=== PATIENT | female | born 1940 | race Caucasian/White ===

== ENCOUNTER 2023-10-24 10:07 | Inpatient (IN) | payer MEDICARE, OTHER, SELFPAY ==
[2023-10-24] VITALS (13 sets, daily range): BP systolic 84–146; BP diastolic 61–91; BMI 27.0; BMI 27.4
--- NOTE | 2023-10-24 05:42 | EDRN ---
Pt says she is having mid sternal, epigastric upper abd pain that woke her at 0400. Pt felt fine when she went to bed. Pt has 'a little nausea.' No fever/chills/cough, vomiting, urinary symptoms. No hx of similar symptoms. Pt does not remember
what she had to eat last night. Pt has had decreased appetite which is normal.
[2023-10-24 06:03] LABS: % Basophils 0.9 % (0-2); % Eosinophils 2.2 % (0-6); % Immature Granulocytes 0.5 % (0-0.5); % Lymphocytes 18.8 % (20.5-51.1); % Monocytes 7.3 % (1.7-9.3); % Neutrophils 70.3 % (42.2-75.2); Absolute Basophils 0.1 10^3/uL (0-0.2); Absolute Eosinophils 0.2 10^3/uL (0-0.7); Absolute Lymphocytes 1.5 10^3/uL (1.2-3.4); Absolute Monocytes 0.6 10^3/uL (0.1-0.6); Absolute Neutrophils 5.7 10^3/uL (1.4-6.5); Hematocrit 40.2 % (37.0-47.0); Hemoglobin 13.4 g/dL (12.0-16.0); Mean Corp Hgb Conc. 33.3 g/dL (33.0-37.0); Mean Corpuscular Hgb 33.3 pg (27.0-31.0); Mean Corpuscular Volume 99.8 fL (81.0-99.0); Mean Platelet Volume 8.5 fL (7.4-10.4); Nucleated Red Blood Cells % 0 %; Platelet Count 395 10^3/uL (130-400); Red Blood Cell Count 4.03 10^6/uL (4.20-5.40); Red Cell Dist. Width 13.2 % (11.5-14.5); White Blood Cell Count 8.1 10^3/uL (4.8-10.8)
--- NOTE | 2023-10-24 06:19 | ED.GENMED ---
History of Present Illness
General
Chief Complaint: Cardiac Symptoms
Time Seen by Provider: 10/24/23 06:19
History of Present Illness
History of Present Illness:
HPI: The patient presents with epigastric/lower chest discomfort that started around 4 AM today. Over the last few days, the patient has had decreased appetite. This is associated with intermittent nausea. She overall has an unwell feeling.
EXAM:
GENERAL: Well appearing but in mild distress
HEENT: Moist oral mucosa
CARDIOVASCULAR: No murmurs, normal heart rate, regular rhythm, No chest wall tenderness
PULMONARY: No respiratory distress, breath sounds are clear and equal
ABDOMEN: Soft with no peritoneal signs, mild epigastric tenderness
NEUROLOGIC: Excellent strength all extremities, no coordination deficits
PSYCHIATRIC: Appropriate mental status, normal insight and judgement
EXTREMITIES: Nontender, no edema, moves all extremities equally
SKIN: No rash, no lesions
TIME OF INITIAL ENCOUNTER: 6:30 AM
NUMBER AND COMPLEXITY OF PROBLEMS ADDRESSED AT THE ENCOUNTER
� Chronic conditions affecting care: Migraine, asthma, high blood pressure, hyperlipidemia, IBS, duodenal ulcer with NSAID use
� Acute Exacerbation and/or Progression of Chronic Illness: This is an acute problem
� Differential Diagnosis includes: Gastritis, duodenal ulcer, ACS less likely, bowel obstruction
AMOUNT AND/OR COMPLEXITY OF DATA TO BE REVIEWED AND ANALYZED
� I performed an independent evaluation of and my interpretation is:
EKG: Sinus 66, left axis deviation, borderline LVH, nonspecific ST abnormality
CT: I personally reviewed (patient could not tolerate p.o. and did not want to risk IV contrast even with premedication with her prior history of shortness of breath after IV dye)�agree with radiologist interpretation of
perforated proximal duodenal ulcer
X-rays:
Laboratory Studies: CBC normal, mild renal insufficiency with a creatinine of 1.4 and GFR 37
Other:
� Review of other/old records: The patient was admitted with asthma exacerbation with questionable pneumonia in 2014
� Clinical information was obtained by an independent historian: I spoke to the at bedside
� Prescriptions/Medications Considered but not given:
� Further testing considered but not performed:
RISK OF COMPLICATIONS AND/OR MORBIDITY OR MORTALITY OF PATIENT MANAGEMENT
� Social determinants of health affecting care: Lives at home
� Discussion with other providers: I notified Dr. Coleman who evaluated patient in the ED at 10 AM; discussed with Dr. Caceres, hospitalist for admission; notified GI Dr. Sandoval
� Escalation of care including admission/observation vs risk of discharge considered: The patient presents with epigastric discomfort and CT imaging was abnormal. The patient was given PPI/Pepcid and she has had intermittent
nausea. She was given Zofran and then Reglan. Overall she feels somewhat improved on reassessment at 9:45 AM.
Past History
Past History
ED Past Medical History: Asthma, HTN and Other (Migraines)
ED Past Surgical History: Orthopedic and Other (Hernia)
Social History
Tobacco: Non-smoker
Personal:
Living: with family
Phy Exam
Physical Exam
Physical Exam:
See HPI
Course
Orders/Labs/Results
Orders:
Orders
10/24/23 05:38
ECG [Electrocardiogram (*1)] Urgent
Reason for Study: Chest Pain
EKG- Treatment ONCE
10/24/23 05:54
Complete Blood Count/With Diff Urgent
Troponin I Urgent
10/24/23 06:16
Comprehensive Metabolic Panel Urgent
Comment: REDRAW
Lipase Urgent
10/24/23 06:26
0.9% Sodium Chloride 500 ml [Nss] 500 ml IV BOLUS
Famotidine [Pepcid] 20 mg IV NOW STA
Ondansetron Injectable [Zofran] 4 mg IV NOW STA
10/24/23 06:49
CT Abd/pel Without Iv Or Oral Urgent
Comment:
Reason For Exam: upper pain; refuses IV contr; can't ivon po
10/24/23 08:13
Troponin I Urgent
10/24/23 08:47
Diphenhydramine [Benadryl] 25 mg IV NOW STA
Metoclopramide [Reglan] 10 mg IV NOW STA
10/24/23 09:19
Pantoprazole [Protonix IV] 80 mg IV NOW STA
10/24/23 09:49
Admit/Transfer Patient As Directed
Co-Sign Provider:
Level of Care: Inpatient admission
Assign to:: IMU- Intermediate Care
Physician / Group: [facility]
Diagnosis: duodenal perforation
Reason for Hospitalization: duodenal perforation
Expected length of stay greater than two midnights?: Yes
ELOS- Estimated Length of Stay in days: 5
I certify the patient meets the requirements for IP care: Yes
PRN Pain Medication Management As Directed
May give lesser potent ordered pain med per pt: Yes
preference::
Protocol:: Medication orders for pain may be administered in a
manner that supports deferring to patient preference
when the pt is:
- Requesting an ordered lesser potent pain medication.
Least to most potent pain medications are defined
as: acetaminophen < NSAID < tramadol < opioids
(morphine, oxycodone, hydromorphone).
- Requesting a lesser dose of the same medication IF
ORDERED.
- Requesting a less intrusive route of administration
if both routes are prescribed by the provider (PO <
IV).
10/24/23 09:50
Code Status As Directed
Resuscitation Status: Full Code
10/24/23 10:00
Code Status As Directed
Resuscitation Status: Do not resuscitate
Reached after discussion with pt or family/Healthcare POA: Yes
DNR Bracelet Application ONCE
Abnormal Lab Results
10/24/23 10/24/23
05:54 06:16
RBC 4.03 L 10^6/uL
(4.20-5.40)
MCV 99.8 H fL
(81.0-99.0)
MCH 33.3 H pg
(27.0-31.0)
Lymphocytes % 18.8 L %
(20.5-51.1)
BUN 28 H mg/dl
(7-17)
Creatinine 1.4 H mg/dL
(0.6-1.0)
Glucose 128 H mg/dl
(70-99)
10/24/23 05:54
10/24/23 06:16
Vital Signs
Initial and Last Documented VS:
Initial Vital Signs
Temp Pulse Resp BP Pulse Ox
97.8 F 82 26 126/80 100
10/24/23 05:35 10/24/23 05:35 10/24/23 05:35 10/24/23 05:35 10/24/23 05:35
Last Documented Vital Signs
Temp Pulse Resp BP Pulse Ox
97.8 F 60 18 110/68 98
10/24/23 05:35 10/24/23 08:14 10/24/23 08:14 10/24/23 08:14 10/24/23 08:14
*Critical Care Note
Total Time (30-74mins, 75-104mins- exclusive of procedures): Not Applicable
ED Attending Note
-
Portions of this chart may have been created with voice recognition software.� Occasional wrong word or��sound alike� substitutions may have occurred due to the inherent limitations of voice recognition software.
Discharge Plan
Departure
Patient Disposition: Admit
Date of Disposition: 10/24/23
Time of Disposition: 09:27
Presentation/result/management discussed w/ accepting MD/DO: Hospitalist
Discharge Problem:
Perforated duodenal ulcer
Prescriptions:
No Action
diphenhydramine HCl [Banophen] 50 MG capsule
50 mg PO HSPRN PRN (Reason: allergies)
atenolol 25 MG tablet
25 mg PO HSPRN PRN (Reason: sleep)
calcium carbonate [Oyster Shell Calcium 500] 500 MG tablet
500 mg PO DAILY
hydrochlorothiazide 25 MG tablet
25 mg PO DAILY
albuterol sulfate 1 PUFF HFA aerosol inhaler
2 puff inhalation R Q4HPRN PRN (Reason: shortness of breath)
glucosamine-chondroitin 1 CAP capsule
1 cap PO BIDPRN PRN (Reason: supplement)
docosahexaenoic acid-epa 1 CAP capsule
1 cap PO BIDPRN PRN (Reason: supplement)
fenofibrate nanocrystallized 145 MG tablet
145 mg PO DAILY
multivitamin with folic acid [Tab-A-Shaunna] 1 TABLET tablet
1 tab PO DAILY
losartan 50 mg tablet
50 mg PO DAILY
prochlorperazine maleate 10 mg tablet
10 mg PO TIDPRN PRN (Reason: nausea)
omeprazole 40 mg capsule,delayed release(DR/EC)
40 mg PO DAILY
cholecalciferol (vitamin D3) 50 mcg (2,000 unit) Tablet
50 mcg PO DAILY
jrrdcqclri-jnsbvupblgkpv-xtkb 50-300-40 mg capsule
1 cap PO PRN PRN (Reason: migraine)
Patient Comments:
10/24/2023: Pt states may take once to 5 times a day.
budesonide-formoterol 160-4.5 mcg/actuation HFA aerosol inhaler
1 puff INHALATION R BID
Referrals:
Juan M Murphy MD [Family Provider] -
Interventions
Interventions:
*Risk Screen - Suicide Last Done: 10/24/23 05:35
*General Assessment Last Done: 10/24/23 05:45
*Neglect/Abuse Screening Last Done: 10/24/23 05:35
ED- Fall Risk Assessment Last Done: 10/24/23 05:59
*ED COVID-19 Vaccine History Last Done: 10/24/23 05:45
ED- Pulmonary Assessment Last Done: 10/24/23 06:02
ED- Cardiac Assessment Last Done: 10/24/23 06:02
EH-Geovgx-Umvusuoaou Assessment Last Done: 10/24/23 06:02
Discharge Date and Time
Print Language: LATVIAN
[2023-10-24 06:30] LABS: Troponin I < 0.012 ng/ml
[2023-10-24] MEDS: PEPCID 20 MG IV (06:32)
[2023-10-24] MEDS: NSS 500 IV (06:32)
[2023-10-24] MEDS: ZOFRAN 4 MG IV (06:32)
[2023-10-24 06:36] LABS: ALT (SGPT) 11 U/L (0-35); AST (SGOT) 20 U/L (14-36); Albumin 3.9 g/dl (3.5-5.0); Alkaline Phosphatase 72 U/L (38-126); Blood Urea Nitrogen 28 mg/dl (7-17); Calcium 10.1 mg/dl (8.4-10.2); Carbon Dioxide 24 mmol/L (22-30); Chloride 103 mmol/L (98-107); Estimated Creatinine Clearance 28 ml/min; Glucose 128 mg/dl (70-99); Lipase 218 U/L (23-300); Potassium 4.9 mmol/L (3.5-5.1); Sodium 138 mmol/L (135-145); Total Bilirubin 0.9 mg/dl (0.2-1.3); Total Protein 6.3 g/dl (6.3-8.2)
--- NOTE | 2023-10-24 08:14 | PHANOTE ---
Med Rec Note:
Unable to confirm Atenolol and Fenofibrate, pt states she is taking these medications. Cannot find recent fill through Dr De Leon.
[2023-10-24 08:47] LABS: Troponin I < 0.012 ng/ml
[2023-10-24] MEDS: REGLAN 10 MG IV (08:59)
[2023-10-24] MEDS: BENADRYL 25 MG IV (08:59)
--- NOTE | 2023-10-24 09:40 | HPS.HSE ---
Family Physician
-
Family Physician: Juan M Murphy MD
Chief Complaint
-
RLQ pain and nausea
History of Present Illness
83 y/o F with PMHx:
Essential hypertension
GERD
Asthma
Chronic HFpEF
HLD
Migraines
who p/w CC RLQ pain and nausea. Patient reports this started last night and woke her from sleep. She reports that the only thing that improved the pain with sitting still in a lounge chair. She reports she has chronic exertional retrosternal
chest pain that is related to asthma and this is unchanged. Denies any shortness of breath. Denies any vomiting or diarrhea. Denies any fevers. Denies any other acute symptoms.
Medical History
Past Medical History
Past Medical History: Reports Other (as per HPI)
Past Surgical History: Reports Other (N/A)
Social History
Tobacco: Non-smoker
Alcohol: None
Drug: None
Family History
Family History: Not pertinent
Allergies / Home Medications
Allergies reflects when Allergies were last updated in [facility].
Home Medications with original date entered in [facility]
Allergy/Medication List:
Allergies
Allergy/AdvReac Type Severity Reaction Status Date / Time
cephalexin monohydrate Allergy Anaphylaxis Verified 10/24/23 05:36
[From Keflex]
ciprofloxacin [From Cipro] Allergy Nausea / Verified 10/24/23 05:36
Vomiting /
Headache
clindamycin Allergy Anaphylaxis Verified 10/24/23 05:36
codeine Allergy Nausea / Verified 10/24/23 05:36
Vomiting /
Headache
erythromycin base Allergy Anaphylaxis Verified 10/24/23 05:36
[Erythromycin Base]
gentamicin [Gentamicin] Allergy Anaphylaxis Verified 10/24/23 05:36
iodine Allergy Unknown Verified 10/24/23 05:36
levofloxacin [From Levaquin] Allergy Anaphylaxis Verified 10/24/23 05:36
morphine Allergy Shortness Verified 10/24/23 05:36
of Breath
Penicillins Allergy Anaphylaxis Verified 10/24/23 05:36
Tetracyclines Allergy Anaphylaxis Verified 10/24/23 05:36
vancomycin Allergy Anaphylaxis Verified 10/24/23 05:36
mycin Allergy Anaphylaxis Uncoded 10/24/23 05:36
Home Medications
albuterol sulfate 90 mcg/actuation aerosol inhaler 2 puff inhalation R Q4HPRN PRN shortness of breath 06/23/14
atenolol 25 mg tablet 25 mg PO HSPRN PRN sleep 06/23/14
calcium carbonate (Oyster Shell Calcium 500) 500 mg PO DAILY 06/23/14
diphenhydramine HCl 50 mg capsule (Banophen) 50 mg PO HSPRN PRN allergies 06/23/14
docosahexaenoic acid (dha)-epa 120 mg-180 mg capsule 1 cap PO BIDPRN PRN supplement 06/23/14
fenofibrate nanocrystallized 145 mg tablet 145 mg PO DAILY 06/23/14
glucosamine-chondroitin 500 mg-400 mg capsule 1 cap PO BIDPRN PRN supplement 06/23/14
hydrochlorothiazide 25 mg tablet 25 mg PO DAILY 06/23/14
multivitamin with folic acid 400 mcg tablet (Tab-A-Shaunna) 1 tab PO DAILY 06/23/14
budesonide-formoterol HFA 160 mcg-4.5 mcg/actuation aerosol inhaler 1 puff inhalation R BID 10/24/23
lobsoxoezc-jxaorfrokpypb-nudrhjlj 50 mg-300 mg-40 mg capsule 1 cap PO PRN PRN migraine 10/24/23
cholecalciferol (vitamin D3) 50 mcg (2,000 unit) tablet 50 mcg PO DAILY 10/24/23
losartan 50 mg tablet 50 mg PO DAILY 10/24/23
omeprazole 40 mg capsule,delayed release 40 mg PO DAILY 10/24/23
prochlorperazine maleate 10 mg tablet 10 mg PO TIDPRN PRN nausea 10/24/23
Review of Systems
-
History Source: Patient
A 12 point ROS was completed and negative except as noted: Yes
Physical Exam
Vital Signs
Vital Signs
Temp Pulse Resp BP Pulse Ox
97.8 F 60 18 110/68 98
10/24/23 05:35 10/24/23 08:14 10/24/23 08:14 10/24/23 08:14 10/24/23 08:14
Physical Exam
General: Other (.)
Laboratory Results
-
10/24/23 05:54
10/24/23 06:16
Laboratory Results
Total Bilirubin 0.9 mg/dl (0.2-1.3) 10/24/23 06:16
AST 20 U/L (14-36) 10/24/23 06:16
ALT 11 U/L (0-35) 10/24/23 06:16
Alkaline Phosphatase 72 U/L (38-126) 10/24/23 06:16
Troponin I < 0.012 ng/ml 10/24/23 08:13
Lipase 218 U/L (23-300) 10/24/23 06:16
Impression/Plan
-
Gen: NAD, AAOx3.
Eyes: EOMI, PERRLA, no scleral icterus.
Neck: supple.
CV: RRR, +S1/S2, no m/r/g.
Resp: CTAB, no rales, wheezes, or rhonchi.
Abd: +BS, soft, LLQ TTP, ND
Skin: No rashes.
Neuro: CN 2-12 intact, non-focal.
Psych: Normal mood and affect.
CT A/P:
1. ACUTE PERFORATED PROXIMAL DUODENAL ULCER.
2. 5.9 cm loculated collection of fluid and air adjacent to the proximal duodenum.
3. Moderate chronic bilateral renal disease.
4. Small calcified granulomas in the spleen.
5. Previous cholecystectomy, hysterectomy, and left inguinal hernia repair.
6. Mild cardiomegaly.
Acute perforated proximal duodenal ulcer:
-NPO/IVFs
-STAT surgical evaluation (discussed with Dr. Coleman)
-IMU placement
-IV PPI
Other problems:
Essential HTN: Hold atenolol/HCTZ/losartan
GERD: IV PPI
Asthma, not in acute exac
Chronic HFpEF: Hold BB
HLD
Migraines
DNR - confirmed with the pt in the ER
Heparin
IMU
[2023-10-24] MEDS: PROTONIX IV 80 MG IV (09:47)
--- NOTE | 2023-10-24 10:47 | CON.GS ---
Consultation
-
Date/Time Consultation Requested: 10/24/2023 9:30 AM
Date/Time Consultation Performed: 10/24/2023 9:35 AM
Requesting Provider: Emergency department, Dr. Caceres
Performing Provider: Dr. Coleman
Reason for Consultation: Perforated duodenal ulcer
Medical History
-
Chief Complaint: Abdominal pain
History of Present Illness:
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
worsening abdominal pain over the past months to years. The patient denies Fever, Chest Pain, Shortness Of Breath, Nausea, Vomiting, changes in urinary and bowel habits (other than some occasional constipation and loose stools), unintentional
weight loss, jaundice, icterus, acolic stools.
Her surgical history is significant for a hysterectomy via a low Pfannenstiel incision which at the time she was told she had 'gangrenous appendicitis' and had her appendix removed concurrently. She also had a laparoscopic cholecystectomy done at
[facility]. She also states that she has a known duodenal ulcer and that she was told 'this will 1-Day cause you problem' and she thinks they did something to her duodenum but she is unclear as to what and is under the impression that it was done at the
time of her hysterectomy.
Past Medical History
Past Medical History: Other (Reflux, asthma, heart failure, migraines)
Past Surgical History: Other (Open hysterectomy, appendectomy, laparoscopic cholecystectomy, possible duodenal surgery?)
Social History
Tobacco: Non-Smoker
Alcohol: None
Drug: None
Personal:
Living: With Family
Employment: Retired
Family History
Family History: Reviewed & Not Pertinent
Allergies / Home Medications
Allergy/AdvReac Type Severity Reaction Status Date / Time
cephalexin monohydrate Allergy Anaphylaxis Verified 10/24/23 05:36
[From Keflex]
ciprofloxacin [From Cipro] Allergy Nausea / Verified 10/24/23 05:36
Vomiting /
Headache
clindamycin Allergy Anaphylaxis Verified 10/24/23 05:36
codeine Allergy Nausea / Verified 10/24/23 05:36
Vomiting /
Headache
erythromycin base Allergy Anaphylaxis Verified 10/24/23 05:36
[Erythromycin Base]
gentamicin [Gentamicin] Allergy Anaphylaxis Verified 10/24/23 05:36
iodine Allergy Unknown Verified 10/24/23 05:36
levofloxacin [From Levaquin] Allergy Anaphylaxis Verified 10/24/23 05:36
morphine Allergy Shortness Verified 10/24/23 05:36
of Breath
Penicillins Allergy Anaphylaxis Verified 10/24/23 05:36
Tetracyclines Allergy Anaphylaxis Verified 10/24/23 05:36
vancomycin Allergy Anaphylaxis Verified 10/24/23 05:36
mycin Allergy Anaphylaxis Uncoded 10/24/23 05:36
�Medication �Instructions �Recorded �Confirmed �Type
albuterol sulfate 90 mcg/actuation 2 puff inhalation R Q4HPRN PRN 06/23/14 10/24/23 History
aerosol inhaler shortness of breath
atenolol 25 mg tablet 25 mg PO HSPRN PRN sleep 06/23/14 06/23/14 History
calcium carbonate (Oyster Shell 500 mg PO DAILY Supplement 06/23/14 10/24/23 History
Calcium 500)
diphenhydramine HCl 50 mg capsule 50 mg PO HSPRN PRN allergies 06/23/14 10/24/23 History
(Banophen)
docosahexaenoic acid (dha)-epa 120 1 cap PO BIDPRN PRN supplement 06/23/14 10/24/23 History
mg-180 mg capsule
fenofibrate nanocrystallized 145 145 mg PO DAILY High Cholesterol 06/23/14 06/23/14 History
mg tablet
glucosamine-chondroitin 500 mg-400 1 cap PO BIDPRN PRN supplement 06/23/14 10/24/23 History
mg capsule
hydrochlorothiazide 25 mg tablet 25 mg PO DAILY Blood Pressure 06/23/14 10/24/23 History
multivitamin with folic acid 400 1 tab PO DAILY Supplement 06/23/14 10/24/23 History
mcg tablet (Tab-A-Shaunna)
budesonide-formoterol HFA 160 1 puff inhalation R BID 10/24/23 10/24/23 History
mcg-4.5 mcg/actuation aerosol Lung/Breathing Issues
inhaler
jsdrryjqhg-fwlfsgdfcbuzd-bnefwmku 1 cap PO PRN PRN migraine 10/24/23 10/24/23 History
50 mg-300 mg-40 mg capsule
cholecalciferol (vitamin D3) 50 50 mcg PO DAILY Supplement 10/24/23 10/24/23 History
mcg (2,000 unit) tablet
losartan 50 mg tablet 50 mg PO DAILY Blood Pressure 10/24/23 10/24/23 History
omeprazole 40 mg capsule,delayed 40 mg PO DAILY Gastrointestinal 10/24/23 10/24/23 History
release Issue
prochlorperazine maleate 10 mg 10 mg PO TIDPRN PRN nausea 10/24/23 10/24/23 History
tablet
Review of Systems
-
All other systems: Negative unless noted
A 10 point review of systems was completed, and was negative except as per HPI.
Physical Exam
Vital Signs
Temp Pulse Resp BP Pulse Ox
97.8 F 60 18 110/68 98
10/24/23 05:35 10/24/23 08:14 10/24/23 08:14 10/24/23 08:14 10/24/23 08:14
10/23/23 10/24/23 10/25/23
06:59 06:59 06:59
Actual Weight 70.1 kg
Body Mass Index (BMI) 27.0
Lab Results
10/24/23 05:54
10/24/23 06:16
WBC 8.1 10^3/uL (4.8-10.8) 10/24/23 05:54
Hgb 13.4 g/dL (12.0-16.0) 10/24/23 05:54
Hct 40.2 % (37.0-47.0) 10/24/23 05:54
Plt Count 395 10^3/uL (130-400) 10/24/23 05:54
Abs Immat Gran (auto) 0.0 10^3/uL (0-0.05) 10/24/23 05:54
Neutrophils % 70.3 % (42.2-75.2) 10/24/23 05:54
Physical Exam
General: Well Developed
HEENT: Normocephalic
Respiratory: Clear
GI: Soft, Non Distended, Tender (Mild focal tenderness in the left lower quadrant. No tenderness to palpation in the right upper quadrant even with very deep palpation.), Incisions (She has a low Pfannenstiel incision but no midline laparotomy or
upper abdominal scars. She does have some very faint small incisions in the right upper quadrant consistent with prior cholecystectomy.) and Other
Data Reviewed
-
CT Scan: Image Personally Visualized and interpreted, Report Reviewed by me, Discussed with Physician, Discussed with Patient and Discussed with Family
Labs: Labs Reviewed by me, Discussed with Physician and Discussed with Patient
Total Time Spent with Patient (in minutes): 30
Assessment / Plan
-
This is an 83-year-old female who presents with abdominal pain and nausea over the past 2 days in the setting of similar intermittent symptoms over the past months to years. Her surgical history is significant for a cholecystectomy and a
hysterectomy/appendectomy as well as a possible 'duodenal ulcer surgery' but given her surgical scars it is hard to decipher what exactly she had and unfortunately she is not the best historian.
I reviewed her CT scan images personally and while I agree the duodenum appears somewhat abnormal in its course, there is no free air or free fluid and minimal inflammation which would be very unlikely in the setting of a perforation. Furthermore
her physical exam is completely benign particularly in the right upper quadrant, and she has no leukocytosis. I wonder if the radiologic findings are secondary to her reported prior surgery in this area.
Recommend getting an upper GI with Omnipaque to assess her anatomy better. The patient refused initially p.o. contrast with her CT scan because of an 'allergy to dye' though it sound like this was with IV contrast the patient insists this occurred
with oral contrast as well and she would like to be premedicated for this.
N.p.o. until upper GI. IV fluids
IV Protonix for now.
Would hold off on antibiotics for now
Surgery will continue to follow
Patient and agreeable to plan of care above.
I spent roughly 75 minutes in total for the care of this patient today including direct patient care and counseling, reviewing labs, imaging, coordination of care, as well as documentation.
--- NOTE | 2023-10-24 11:22 | CM ---
CM reviewed patient's chart. Spoke with patient at bedside. CM introduced self and role. Her was also at bedside.
PCP: Dr. Juan M Murphy
Pharmacy: [facility]
Living situation: Patient lives with her . She lives in a single-level home. No steps to enter.
Finances: Patient denies any social insecurities. She is able to afford her housing, clothing, medications, food, utilities and transportation. She is a retired oncology nurse.
DME/Ambulation: Patient ambulates independently. She owns a walker and cane.
Transportation: Patient's will provide transportation, once she is discharged. Patient very occasionally drives.
Agreeable to home health care?: Yes, if needed. Her 's brother owns a home health care agency.
ANTICIPATED DISCHARGE DISPOSITION:
Home with , once medically cleared.
CM will continue to follow case and available for further assistance.
[2023-10-24] MEDS: MORPHINE SULFATE 2 MG IV (12:31)
--- NOTE | 2023-10-24 14:32 | EDRN ---
kapil text to dr. Caceres about changing admission request to Tele from IMU. Dr. Caceres will reevaluate the patient before changing the statues. Pt resting comfortably after receiving Morphine, states there is no pain at this time.
--- NOTE | 2023-10-24 16:40 | PTCARENOTE ---
2361 Pt received from ED via stretcher. Pt ambulated from stretcher to standing scale and then to bed. Pt accompanied by spouse and floor care technician.
Pt oriented to staff, call light and environment.
[2023-10-24] MEDS: PROTONIX IV 40 MG IV ×2 (17:20→21:09)
[2023-10-24] MEDS: NSS (PRESERVATIVE FREE) 10 ML IV ×2 (17:20→21:09)
[2023-10-24] MEDS: HEPARIN 5000 UNITS SC ×2 (17:21→23:09)
[2023-10-24] MEDS: LR 1000 IV (17:21)
[2023-10-24] MEDS: FIORICET 1 TAB PO ×2 (17:46→21:08)
[2023-10-24] MEDS: SYMBICORT 160/4.5 MCG INHALER 1 PUFF INH (19:30)
[2023-10-25] MEDS: LR 1000 IV ×3 (02:30→20:36)
[2023-10-25] MEDS: MORPHINE SULFATE 2 MG IV (03:48)
[2023-10-25 07:13] LABS: Blood Urea Nitrogen 26 mg/dl (7-17); Calcium 9.3 mg/dl (8.4-10.2); Carbon Dioxide 25 mmol/L (22-30); Chloride 106 mmol/L (98-107); Estimated Creatinine Clearance 33 ml/min; Glucose 77 mg/dl (70-99); Potassium 4.7 mmol/L (3.5-5.1); Sodium 138 mmol/L (135-145); eGFR 44.64
[2023-10-25 07:17] LABS: Hematocrit 32.5 % (37.0-47.0); Hemoglobin 10.6 g/dL (12.0-16.0); Mean Corp Hgb Conc. 32.6 g/dL (33.0-37.0); Mean Corpuscular Hgb 33.2 pg (27.0-31.0); Mean Corpuscular Volume 101.9 fL (81.0-99.0); Mean Platelet Volume 8.5 fL (7.4-10.4); Platelet Count 266 10^3/uL (130-400); Red Blood Cell Count 3.19 10^6/uL (4.20-5.40); Red Cell Dist. Width 13.2 % (11.5-14.5); White Blood Cell Count 5.6 10^3/uL (4.8-10.8)
[2023-10-25] MEDS: HEPARIN 5000 UNITS SC ×3 (07:27→23:23)
[2023-10-25] MEDS: PROTONIX IV 40 MG IV ×2 (07:27→20:24)
[2023-10-25] MEDS: NSS (PRESERVATIVE FREE) 10 ML IV ×2 (07:27→20:24)
[2023-10-25 07:30] VITALS: BP 147/66
[2023-10-25] MEDS: FIORICET 1 TAB PO ×2 (07:40→20:55)
[2023-10-25] MEDS: SYMBICORT 160/4.5 MCG INHALER 1 PUFF INH ×2 (07:50→19:39)
--- NOTE | 2023-10-25 09:53 | W.PN.HOSP.TC ---
Today's Communication/Plan
-
see bold
Assessment / Plan
Assessment / Plan
Gen: remains NAD, AAOx3.
Eyes: EOMI, PERRLA, no scleral icterus.
Neck: supple.
CV: remains RRR, +S1/S2, no m/r/g.
Resp: CTAB, no rales, wheezes, or rhonchi.
Abd: +BS, soft, RLQ TTP, ND
Skin: No rashes.
Neuro: CN 2-12 intact, non-focal.
Psych: Normal mood and affect.
CT A/P:
1. ACUTE PERFORATED PROXIMAL DUODENAL ULCER.
2. 5.9 cm loculated collection of fluid and air adjacent to the proximal duodenum.
3. Moderate chronic bilateral renal disease.
4. Small calcified granulomas in the spleen.
5. Previous cholecystectomy, hysterectomy, and left inguinal hernia repair.
6. Mild cardiomegaly.
UGI-series:
1. 3 cm in length segment of luminal narrowing and mucosal irregularity in the proximal 2nd portion of the duodenum corresponding to a segment of wall thickening seen on the CT examination performed 10/24/2023. Diagnostic possibilities are (1)
inflammatory wall thickening from peptic ulcer disease or (2) duodenal adenocarcinoma.
2. 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
3. No fluoroscopic evidence for gastric outlet or duodenal obstruction.
4. No fluoroscopic evidence for extravasation of contrast into the peritoneal cavity.
Abdominal pain:
-NPO/IVFs
-surgery following
-It appears that the reading of the CT scan of the abdomen pelvis might be an 'over read.' Currently abdomen is benign and there is no evidence of free air or fluid outside of the esophagus.
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
-cont IV PPI
-c/s GI considering patient may need EGD
Other problems:
Essential HTN: Holding atenolol/HCTZ/losartan
GERD: IV PPI
Asthma, not in acute exac
Chronic HFpEF: Holding BB
HLD
Migraines: Fioricet PRN
DNR - confirmed with the pt in the ER
Heparin
Anticipated Discharge: 24 - 48 hours
Subjective/Interval History
-
Date of Service: October 25, 2023
Abdominal discomfort is improved since yesterday. Patient complains of migraine headaches.
Objective Data
-
Labs:
Laboratory Results
10/25/23
06:20
WBC 5.6
Hgb 10.6 L D
Hct 32.5 L
Plt Count 266 D
Sodium 138
Potassium 4.7
Chloride 106
Carbon Dioxide 25
BUN 26 H
Creatinine 1.2 H
Glucose 77
Calcium 9.3
Vital Signs:
Vital Signs
Temp Pulse Resp BP Pulse Ox
97.9 F 54 16 147/66 97
10/25/23 07:30 10/25/23 07:30 10/25/23 07:30 10/25/23 07:30 10/25/23 07:30
I&O
10/24/23 10/25/23 10/26/23
06:59 06:59 06:59
Intake Total 1500 / 1500
Balance 1500 / 1500
--- NOTE | 2023-10-25 09:54 | W.PN.GS2 ---
Today's Communication / Plan
-
-- No role or indication for surgery at this time
-- GI consult noted, EGD timing TBD
-- Diet per GI
-- Please call with any questions or concerns
Assessment / Plan
-
Patient is a 83 yo F p/w intermittent bloating and nausea over the past few days. Symptoms appear to be acute on chronic dating back years.
CT A/P (10/23): irregular thickening and configuration of the duodenum, without any evidence of pneumatosis or free air, exam limited by lack of oral and IV contrast.
UGI (10/23): large 2 cm duodenal diverticulum with no evidence of leak, 3 cm area of luminal narrowing and mucosal irregularity
Symptoms likely related to large duodenal diverticulum with stricturing related to either ulcerative disease, postsurgical, or a malignant process. No evidence of obstruction or leak. Recommend further workup and management by GI. Will need EGD
for evaluation of area with possible biopsies. No plans or indication for surgery at this time. All questions answered.
-- No role or indication for surgery at this time
-- GI consult noted, EGD timing TBD
-- Diet per GI
-- Please call with any questions or concerns
Subjective Data
-
Date of Service: October 25, 2023
Stable, no changes in symptoms. Reports intermittent bloating and burping on a daily to weekly basis. Current episode began 2-3 days ago. Associated more with larger meals, though history is somewhat unclear. Nausea but no vomiting. No episodes
of hemoptysis. She also reports some lower abdominal pain and discomfort, denies any upper abdominal pain or discomfort. No fevers, chills, night sweats, or weight loss reported.
Objective Data
-
Intake and Output
10/24/23 10/25/23 10/26/23
06:59 06:59 06:59
Intake Total 1500 / 1500
Balance 1500 / 1500
Intake:
Oral fluids 0 / 0
IV fluids (Total) 1500 / 1500
Other:
Number of approximated MODERATE 2
amounts of urine
Vital Signs
Temp Pulse Resp BP Pulse Ox
97.9 F 54 16 147/66 97
10/25/23 07:30 10/25/23 07:30 10/25/23 07:30 10/25/23 07:30 10/25/23 07:30
Lab Results
10/25/23 06:20
10/25/23 06:20
Calcium 9.3 mg/dl (8.4-10.2) 10/25/23 06:20
Total Bilirubin 0.9 mg/dl (0.2-1.3) 10/24/23 06:16
AST 20 U/L (14-36) 10/24/23 06:16
ALT 11 U/L (0-35) 10/24/23 06:16
Alkaline Phosphatase 72 U/L (38-126) 10/24/23 06:16
Total Protein 6.3 g/dl (6.3-8.2) 10/24/23 06:16
Albumin 3.9 g/dl (3.5-5.0) 10/24/23 06:16
Physical Exam
-
Gen: NAD
Abd: soft, NT/ND, non-peritoneal, prior incisions well healed
[2023-10-25] MEDS: TYLENOL 650 MG PO (12:44)
--- NOTE | 2023-10-25 13:46 | CON.GI ---
Addendum entered and electronically signed by Seng Gorman DO 10/25/23 16:31:
I saw and examined the patient.
The MANUFACTURING ENGINEERING DIRECTOR's note was reviewed and I agree with the note with the following comments. This is an 83 y.o female with past medical as outlined below who presented to the ED with acute onset of epigastric abdominal pain. Reports acute on chronic,
intermittent abdominal pain over the past ten years but reports that this current episode was much more intense. No nausea or vomiting, but does not decreased p.o intake along with an unintentional weight loss of 35 lbs. Labs grossly normal on
admission except for BUN 28 and Public Health Educator 1.4. Non-contrast CT concern for an acute perforated ulcer with loculated collection however upon further Radiology review/addendum there was no evidence of extraluminal collection of air or fluid, only some
nonspecific thickening of the proximal duodenal wall. Follow-up UGI as recommended by surgery revealed luminal narrowing and mucosal irregularity in the proximal 2nd portion concerning for PUD (ie deep penetrating ulcer ?) versus duodenal
adenocarcinoma. Denies any NSAIDs or other obvious risk factors for PUD and given weight loss malignancy needs to be rule out. 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
without any biliary ductal dilatation seen on imaging.
#Acute on Chronic, Epigastric Abdominal Pain
#Abnormal CT w/ #Duodenal Nodularity/Wall Thickening
#Unintentional Weight Loss (35 lbs)
#Hx of Cholecystectomy
Recommendations:
- Okay to trial CLD this afternoon, keep NPO at [place]
- Empiric IV PPI 40 mg BiD
- Trend Hgb with serial CBC, transfuse for goal Hgb > 7.0
- Will plan for EGD tomorrow, 10/26/2023, to further evaluate patient's symptoms and abnormal CT findings
- Strict avoidance of all NSAIDs
- Surgery following, appreciate recs
- Rest of care per primary team
Seng Gorman DO
Original Note:
Consultation
-
Date/Time Consultation Requested: 10/25/23 1000
Date/Time Consultation Performed: 10/25/23 1340
Requesting Provider: Que Caceres MD
Performing Provider: NEVILLE Merlos, Juan David Guevara MD
Reason for Consultation: abnormal imaging
Medical History
Chief Complaint / HPI
Chief Complaint: abdominal pain
History of Present Illness:
Pt is an 83yo colon polyps, family hx colon CA, HFpEF, GERD(Omeprazole PRN), asthma, HTN, hyperlipidemia, migraines (Fioricet as needed), ? duodenal ulcer, hernia, presents with onset of epigastric/lower abdominal pain. In reviewing with patient
noted with hx abdominal pain x 10 years. Pain in intermittent with increased intensity then resolved. She is concerned as admits to recent wt loss of about 35 lbs and increase frequency and intensity of pain. She admit to pain is chest and
epigastric that now is improving since admission. On admission she CT non contrast with concern for acute perforated ulcer with loculated collection vs on further review possible post surgical related with thickening of duodenal wall with adjacent
fat stranding. Follow up UGI with luminal narrowing and mucosal irregularity 2nd portion of duodenum with wall thickening seen on CT -- PUD vs duodenal adenocarcinoma. Also noted large duodenal diverticulum without gastric outlet or duodenal
obstruction. No extravasation of contrast into peritoneal cavity.
Pt otherwise admits to nausea without vomiting and occasional constipation. She denies odynophagia, dysphagia, GERD, diarrhea, or rectal bleeding. Last EGD at [facility] 7-8 years ago at [place]. Last colonoscopy 2 years ago with hx polyp at [place]. No
NSAID use but admits to Fioricet use for Migraines and addition to caffeine with drinking coke daily.
Past Medical History
Past Medical History: Asthma, CHF, GERD, HTN, Hypercholesterolemia and Other (Migraines, hernia, ? duodenal ulcer )
Past Surgical History: Appendectomy, Cholecystectomy, Gynecological (hysterectomy), Orthopedic and Other (? abnormality of duodenum)
Social History
Tobacco: Non-Smoker
Alcohol: None
Drug: None
Personal:
Living: With Family
Employment: Retired (prior nurse )
Family History
Family History: Other (mother with colon CA, brother with polyps)
Allergies / Home Medications
Allergy/AdvReac Type Severity Reaction Status Date / Time
cephalexin monohydrate Allergy Anaphylaxis Verified 10/24/23 05:36
[From Keflex]
ciprofloxacin [From Cipro] Allergy Nausea / Verified 10/24/23 05:36
Vomiting /
Headache
clindamycin Allergy Anaphylaxis Verified 10/24/23 05:36
codeine Allergy Nausea / Verified 10/24/23 05:36
Vomiting /
Headache
erythromycin base Allergy Anaphylaxis Verified 10/24/23 05:36
[Erythromycin Base]
gentamicin [Gentamicin] Allergy Anaphylaxis Verified 10/24/23 05:36
iodine Allergy Unknown Verified 10/24/23 05:36
levofloxacin [From Levaquin] Allergy Anaphylaxis Verified 10/24/23 05:36
Penicillins Allergy Anaphylaxis Verified 10/24/23 05:36
Tetracyclines Allergy Anaphylaxis Verified 10/24/23 05:36
vancomycin Allergy Anaphylaxis Verified 10/24/23 05:36
morphine AdvReac Shortness Verified 10/24/23 14:49
of Breath
mycin Allergy Anaphylaxis Uncoded 10/24/23 05:36
�Medication �Instructions �Recorded
albuterol sulfate 90 mcg/actuation 2 puff inhalation R Q4HPRN PRN 06/23/14
aerosol inhaler shortness of breath
calcium carbonate (Oyster Shell 500 mg PO DAILY Supplement 06/23/14
Calcium 500)
diphenhydramine HCl 50 mg capsule 50 mg PO HSPRN PRN allergies 06/23/14
(Banophen)
docosahexaenoic acid (dha)-epa 120 1 cap PO BIDPRN PRN supplement 06/23/14
mg-180 mg capsule
glucosamine-chondroitin 500 mg-400 1 cap PO BIDPRN PRN supplement 06/23/14
mg capsule
hydrochlorothiazide 25 mg tablet 25 mg PO DAILY Blood Pressure 06/23/14
multivitamin with folic acid 400 1 tab PO DAILY Supplement 06/23/14
mcg tablet (Tab-A-Shaunna)
budesonide-formoterol HFA 160 1 puff inhalation R BID 10/24/23
mcg-4.5 mcg/actuation aerosol Lung/Breathing Issues
inhaler
ayednfgxja-enrhovafdapew-kyqgjbxc 1 cap PO PRN PRN migraine 10/24/23
50 mg-300 mg-40 mg capsule
cholecalciferol (vitamin D3) 50 50 mcg PO DAILY Supplement 10/24/23
mcg (2,000 unit) tablet
losartan 50 mg tablet 50 mg PO DAILY Blood Pressure 10/24/23
omeprazole 40 mg capsule,delayed 40 mg PO DAILY Gastrointestinal 10/24/23
release Issue
prochlorperazine maleate 10 mg 10 mg PO TIDPRN PRN nausea 10/24/23
tablet
Review of Systems
-
History Source: Patient
Constitutional: Reports Weight Loss
EENT: Reports No Symptoms
Abdomen/GI: Reports Abdominal Pain, Nausea and Constipated
: Reports No Symptoms
Musculoskeletal: Reports No Symptoms
Skin: Reports No Symptoms
Neurological: Reports Headache and Weakness
Endocrine: Reports No Symptoms
Hematologic/Lymphatic: Reports No Symptoms
Vital Signs
Temp Pulse Resp BP Pulse Ox
97.9 F 54 16 147/66 97
10/25/23 07:30 10/25/23 07:30 10/25/23 07:30 10/25/23 07:30 10/25/23 07:30
Physical Exam
Exam
General: Well Developed, Well Nourished and No Apparent Distress
HEENT: Normocephalic and Anicteric
Respiratory: Clear
Cardiac: Regular Rhythm
GI: Soft, Non Tender and Non Distended
Musculoskeletal: No Clubbing and No Cyanosis
Skin: Warm and Dry
Neuro: Awake, Alert and AO x 3
Psych: Calm
Results
WBC 5.6 10^3/uL (4.8-10.8) 10/25/23 06:20
Hgb 10.6 g/dL (12.0-16.0) L D 10/25/23 06:20
Hct 32.5 % (37.0-47.0) L 10/25/23 06:20
MCV 101.9 fL (81.0-99.0) H 10/25/23 06:20
Plt Count 266 10^3/uL (130-400) D 10/25/23 06:20
Absolute Neuts (auto) 5.7 10^3/uL (1.4-6.5) 10/24/23 05:54
Sodium 138 mmol/L (135-145) 10/25/23 06:20
Potassium 4.7 mmol/L (3.5-5.1) 10/25/23 06:20
Chloride 106 mmol/L (98-107) 10/25/23 06:20
Carbon Dioxide 25 mmol/L (22-30) 10/25/23 06:20
BUN 26 mg/dl (7-17) H 10/25/23 06:20
Creatinine 1.2 mg/dL (0.6-1.0) H 10/25/23 06:20
Calcium 9.3 mg/dl (8.4-10.2) 10/25/23 06:20
Total Bilirubin 0.9 mg/dl (0.2-1.3) 10/24/23 06:16
AST 20 U/L (14-36) 10/24/23 06:16
ALT 11 U/L (0-35) 10/24/23 06:16
Alkaline Phosphatase 72 U/L (38-126) 10/24/23 06:16
Lipase 218 U/L (23-300) 10/24/23 06:16
Diagnostic Image Results:
10/24/23 UGI series
1. 3 cm in length segment of luminal narrowing and mucosal irregularity in the proximal 2nd portion of the duodenum corresponding to a segment of wall thickening seen on the CT examination performed 10/24/2023. Diagnostic possibilities are (1)
inflammatory wall thickening from peptic ulcer disease or (2) duodenal adenocarcinoma.
2. 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
3. No fluoroscopic evidence for gastric outlet or duodenal obstruction.
4. No fluoroscopic evidence for extravasation of contrast into the peritoneal cavity.
10/24/23 CT without IV contrast
1. ACUTE PERFORATED PROXIMAL DUODENAL ULCER.
2. 5.9 cm loculated collection of fluid and air adjacent to the proximal duodenum.
3. Moderate chronic bilateral renal disease.
4. Small calcified granulomas in the spleen.
5. Previous cholecystectomy, hysterectomy, and left inguinal hernia repair.
6. Mild cardiomegaly.
addendum
The patient is reportedly not tender in the right upper quadrant of the abdomen. There is a history of previous duodenal surgery. The abnormal morphology of the proximal duodenum could be postsurgical in etiology. There is no definitive evidence for
extraluminal collection of air or fluid. There is thickening of the proximal duodenal wall with adjacent fat stranding which could be postprocedural scarring.
Prior GI Procedures:
EGD: 2012 [facility] - Mild Schatzki ring.
- The examination was otherwise normal.
- No obvious pathology.
EGD last [facility] 7-8 years ago
Colonoscopy: last [facility] 2-3 years ago with hx polyps
Assessment / Plan
-
Pt is an 83yo colon polyps, family hx colon CA, HFpEF, GERD(Omeprazole PRN), asthma, HTN, hyperlipidemia, migraines (Fioricet as needed), ? duodenal ulcer, hernia, presents with onset of epigastric/lower abdominal pain. In reviewing with patient
noted with hx abdominal pain x 10 years. Pain in intermittent with increased intensity then resolved. She is concerned as admits to recent wt loss of about 35 lbs and increase frequency and intensity of pain. She admit to pain is chest and
epigastric that now is improving since admission. On admission she CT non contrast with concern for acute perforated ulcer with loculated collection vs on further review possible post surgical related with thickening of duodenal wall with adjacent
fat stranding. Follow up UGI with luminal narrowing and mucosal irregularity 2nd portion of duodenum with wall thickening seen on CT -- PUD vs duodenal adenocarcinoma. Also noted large duodenal diverticulum without gastric outlet or duodenal
obstruction. No extravasation of contrast into peritoneal cavity.
-intermittent abdominal pain for 10 years with recent worsening symptoms
-wt loss
-abnormal Ct with concern for duodenal ulcer with collection but follow up UGI mucosal irregularity with wall thickening- PUD vs duodenal adenocarcinoma
-hx GERD
-anemia with drop in hbg after admission
-? hx duodenal ulcer
-elevated creat
other med problems:
-family hx colon CA, personal hx polyps
-HFpEF
-GERD
-asthma
- HTN
-hyperlipidemia
-migraines
-hernia repair
PLAN:
etiology of abdominal pain with abnormal imaging related to PUD, duodenal diverticulum, mass vs other
plan for EGD in AM -- reviewed risk and benefits with patient, agreeable to proceed
ok for clears, NPO in AM
trend hbg
cont PPI
appreciate surgical input
will follow
-
-
Thank you for consultation and allowing me to participate in the patient's care. Please call the corrections specialist GI physician during the after hours with any questions or concerns.
[2023-10-25 15:50] VITALS: BP 155/66
--- NOTE | 2023-10-25 17:34 | CM ---
Spoke with pt in room .
Probable EGD needed.
Offered Vn she declined need at dc,
PLAN Home no needs
[2023-10-25 23:40] VITALS: BP 144/66
[2023-10-26] VITALS (9 sets, daily range): BP systolic 17–181; BP diastolic 56–78
[2023-10-26] MEDS: TYLENOL 650 MG PO ×2 (01:44→20:34)
[2023-10-26 05:48] LABS: Hematocrit 30.1 % (37.0-47.0); Hemoglobin 10.1 g/dL (12.0-16.0); Mean Corp Hgb Conc. 33.6 g/dL (33.0-37.0); Mean Corpuscular Hgb 33.4 pg (27.0-31.0); Mean Corpuscular Volume 99.7 fL (81.0-99.0); Mean Platelet Volume 8.7 fL (7.4-10.4); Platelet Count 269 10^3/uL (130-400); Red Blood Cell Count 3.02 10^6/uL (4.20-5.40); Red Cell Dist. Width 12.9 % (11.5-14.5); White Blood Cell Count 4.4 10^3/uL (4.8-10.8)
[2023-10-26 05:59] LABS: INR 1.03; PT 13.5 Sec (11.4-14.6)
[2023-10-26] MEDS: ZOFRAN 4 MG IV (06:00)
[2023-10-26 06:13] LABS: Blood Urea Nitrogen 17 mg/dl (7-17); Calcium 9.1 mg/dl (8.4-10.2); Carbon Dioxide 26 mmol/L (22-30); Chloride 106 mmol/L (98-107); Estimated Creatinine Clearance 44 ml/min; Glucose 75 mg/dl (70-99); Potassium 4.3 mmol/L (3.5-5.1); Sodium 138 mmol/L (135-145); eGFR > 60.00
[2023-10-26] MEDS: LR 1000 IV (08:04)
[2023-10-26] MEDS: NSS (PRESERVATIVE FREE) 10 ML IV (08:04)
[2023-10-26] MEDS: FIORICET 1 TAB PO ×2 (08:04→23:48)
[2023-10-26] MEDS: HEPARIN 5000 UNITS SC ×3 (08:04→23:02)
[2023-10-26] MEDS: PROTONIX IV 40 MG IV (08:04)
[2023-10-26] MEDS: SYMBICORT 160/4.5 MCG INHALER 1 PUFF INH ×2 (08:19→19:38)
--- NOTE | 2023-10-26 08:49 | W.PN.HOSP.TC ---
Today's Communication/Plan
-
see bold
Assessment / Plan
Assessment / Plan
Gen: Continues to remain NAD, AAOx3.
Eyes: EOMI, PERRLA, no scleral icterus.
Neck: supple.
CV: Continues to remain RRR, +S1/S2, no m/r/g.
Resp: CTAB, no rales, wheezes, or rhonchi.
Abd: Remains +BS, soft, RLQ TTP, ND
Skin: No rashes.
Neuro: CN 2-12 intact, non-focal.
Psych: Normal mood and affect.
CT A/P:
1. ACUTE PERFORATED PROXIMAL DUODENAL ULCER.
2. 5.9 cm loculated collection of fluid and air adjacent to the proximal duodenum.
3. Moderate chronic bilateral renal disease.
4. Small calcified granulomas in the spleen.
5. Previous cholecystectomy, hysterectomy, and left inguinal hernia repair.
6. Mild cardiomegaly.
UGI-series:
1. 3 cm in length segment of luminal narrowing and mucosal irregularity in the proximal 2nd portion of the duodenum corresponding to a segment of wall thickening seen on the CT examination performed 10/24/2023. Diagnostic possibilities are (1)
inflammatory wall thickening from peptic ulcer disease or (2) duodenal adenocarcinoma.
2. 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
3. No fluoroscopic evidence for gastric outlet or duodenal obstruction.
4. No fluoroscopic evidence for extravasation of contrast into the peritoneal cavity.
Abdominal pain:
-NPO/IVFs
-surgery following
-It appears that the reading of the CT scan of the abdomen pelvis might be an 'over read.' Currently abdomen is benign and there is no evidence of free air or fluid outside of the esophagus.
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
-cont IV PPI
-EGD today
Other problems:
Essential HTN: Holding atenolol/HCTZ/losartan
GERD: IV PPI
Asthma, not in acute exac
Chronic HFpEF: Holding BB
HLD
Migraines: Fioricet PRN
DNR - confirmed with the pt in the ER
Heparin
Anticipated Discharge: 24 - 48 hours
Subjective/Interval History
-
Date of Service: October 26, 2023
No new complaints.
Objective Data
-
Labs:
Laboratory Results
10/26/23
05:17
WBC 4.4 L
Hgb 10.1 L
Hct 30.1 L
Plt Count 269
PT 13.5
INR 1.03
Sodium 138
Potassium 4.3
Chloride 106
Carbon Dioxide 26
BUN 17
Creatinine 0.9
Glucose 75
Calcium 9.1
Vital Signs:
Vital Signs
Temp Pulse Resp BP Pulse Ox
97.6 F 62 18 175/72 100
10/26/23 07:15 10/26/23 08:25 10/26/23 08:25 10/26/23 07:57 10/26/23 08:25
I&O
10/25/23 10/26/23 10/27/23
06:59 06:59 06:59
Intake Total 3120 / 3120
Balance 3120 / 3120
--- NOTE | 2023-10-26 15:53 | PTCARENOTE ---
pt c/o right sided abd pain, mid quadrant. Warm blanket applied, abd soft, pt belching occasionally, states that isn't helping w/pain.
--- NOTE | 2023-10-26 18:00 | PTCARENOTE ---
Pt with elevated BP's during shift. made aware, no new orders.
[2023-10-26] MEDS: PROTONIX 40 MG PO (20:17)
[2023-10-27] MEDS: MORPHINE SULFATE 2 MG IV ×2 (01:31→06:36)
[2023-10-27] MEDS: TYLENOL 650 MG PO ×2 (05:45→11:48)
[2023-10-27] MEDS: ZOFRAN 4 MG IV (05:48)
[2023-10-27 06:13] LABS: Hemoglobin 10.3 g/dL (12.0-16.0); Mean Corp Hgb Conc. 33.2 g/dL (33.0-37.0); Mean Corpuscular Hgb 33.2 pg (27.0-31.0); Mean Platelet Volume 8.7 fL (7.4-10.4); Platelet Count 288 10^3/uL (130-400); White Blood Cell Count 4.9 10^3/uL (4.8-10.8)
[2023-10-27 06:30] LABS: Blood Urea Nitrogen 11 mg/dl (7-17); Calcium 9.1 mg/dl (8.4-10.2); Carbon Dioxide 24 mmol/L (22-30); Chloride 106 mmol/L (98-107); Estimated Creatinine Clearance 39 ml/min; Glucose 80 mg/dl (70-99); Potassium 3.9 mmol/L (3.5-5.1); Sodium 140 mmol/L (135-145); eGFR 55.55
[2023-10-27 07:41] VITALS: BP 117/51
[2023-10-27] MEDS: SYMBICORT 160/4.5 MCG INHALER 1 PUFF INH (08:29)
[2023-10-27] MEDS: PROTONIX 40 MG PO (08:55)
[2023-10-27] MEDS: HEPARIN 5000 UNITS SC (08:55)
[2023-10-27] MEDS: FIORICET 1 TAB PO (08:59)
--- NOTE | 2023-10-27 09:47 | W.PN.HOSP.TC ---
Addendum entered and electronically signed by Que Caceres MD 10/27/23 16:00:
Total time spent on d/c = 33 min. This included today's physical exam, progress note, review of laboratory and diagnostic data, preparation of discharge documents and prescriptions, and discussions about the pt's hospital course and discharge plan
with the patient and other medical hospital sales involved in the patient's care.
Original Note:
Today's Communication/Plan
-
Patient can be discharged later today if she tolerates a low residue diet.
Assessment / Plan
Assessment / Plan
Gen: NAD, AAOx3.
Eyes: remains EOMI, PERRLA, no scleral icterus.
Neck: supple.
CV: RRR, +S1/S2, no m/r/g.
Resp: CTAB, no rales, wheezes, or rhonchi.
Abd: +BS, soft, NT to light palpation, ND
Skin: No rashes.
Neuro: remains CN 2-12 intact, non-focal.
Psych: Normal mood and affect.
CT A/P:
1. ACUTE PERFORATED PROXIMAL DUODENAL ULCER.
2. 5.9 cm loculated collection of fluid and air adjacent to the proximal duodenum.
3. Moderate chronic bilateral renal disease.
4. Small calcified granulomas in the spleen.
5. Previous cholecystectomy, hysterectomy, and left inguinal hernia repair.
6. Mild cardiomegaly.
UGI-series:
1. 3 cm in length segment of luminal narrowing and mucosal irregularity in the proximal 2nd portion of the duodenum corresponding to a segment of wall thickening seen on the CT examination performed 10/24/2023. Diagnostic possibilities are (1)
inflammatory wall thickening from peptic ulcer disease or (2) duodenal adenocarcinoma.
2. 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
3. No fluoroscopic evidence for gastric outlet or duodenal obstruction.
4. No fluoroscopic evidence for extravasation of contrast into the peritoneal cavity.
EGD 10/26/23:
- Normal proximal esophagus and mid esophagus.
- Small, superficial esophageal ulcer with no bleeding
and no stigmata of recent bleeding. Biopsied.
- Non-obstructing and mild Schatzki ring at 43 cms.
- Few, scattered non-bleeding gastric ulcers with a
clean ulcer base (Nikita Class III). Biopsied.
- Otherwise, normal stomach on direct and retroflexion
views. Biopsied to rule out H pylori.
- Large, partially obstructing, cratered duodenal
ulcer with a flat pigmented spot (Nikita Class IIc).
The ulcer was deeply penetrating and approximately 3
cms in size. The ulcer was carefully biopsied to r/o
malignancy.
- Few, scattered non-bleeding duodenal ulcers with a
clean ulcer base (Nikita Class III) in the duodenal
bulb.
- Otherwise, normal first portion of the duodenum and
second portion of the duodenum.
- The examination was otherwise normal.
Esophageal, gastric, and duodenal ulcers:
-presented with abdominal pain
-It appears that the reading of the CT scan of the abdomen pelvis might be an 'over read.' Currently abdomen is benign and there is no evidence of free air or fluid outside of the esophagus. Pt was seen by surgery.
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
-The patient was NPO and supported with IVFs
-EGD above, path pending
-Ulcers were likely NSAID induced. Patient admits to taking Aleve when Fioricet does not help her headaches.
-cont PPI BID
-advanced to clears, discussed with GI, advance to LR diet
Other problems:
Essential HTN: Holding atenolol/HCTZ/losartan
GERD: cont PPI
Asthma, not in acute exac
Chronic HFpEF: Holding BB
HLD
Migraines: Fioricet PRN. Note, pt has been overusing fioricet at home.
DNR - confirmed with the pt in the ER
Heparin
Anticipated Discharge: Within 24 hours
Subjective/Interval History
-
Date of Service: October 27, 2023
Complains of headache.
Objective Data
-
Labs:
Laboratory Results
10/27/23
05:40
WBC 4.9
Hgb 10.3 L
Hct 31.0 L
Plt Count 288
Sodium 140
Potassium 3.9
Chloride 106
Carbon Dioxide 24
BUN 11
Creatinine 1.0
Glucose 80
Calcium 9.1
Vital Signs:
Vital Signs
Temp Pulse Resp BP Pulse Ox
98.1 F 63 18 117/51 100
10/27/23 07:41 10/27/23 08:32 10/27/23 08:32 10/27/23 07:41 10/27/23 08:32
I&O
10/26/23 10/27/23 10/28/23
06:59 06:59 06:59
Intake Total 3120 / 3120 840 / 840
Balance 3120 / 3120 840 / 840
--- NOTE | 2023-10-27 10:17 | W.PN.GI.CBS2 ---
Today's Communication / Plan
-
S/p EGD with multiple PUD and large duodenal ulcer without stigmata of bleeding, awaiting pathology results. PPI BiD and advancing diet as tolerated. Rest of care as outlined below.
Assessment / Plan
-
#Acute on Chronic, Epigastric Abdominal Pain 2/2
#PUD w/ #Large Penetrating Duodenal Ulcer (FC IIc) #Gastric, Esophageal Ulcers
#Abnormal CT w/ #Duodenal Nodularity/Wall Thickening
#Unintentional Weight Loss (35 lbs)
#Hx of Cholecystectomy
Pt is an 83yo colon polyps, family hx colon CA, HFpEF, GERD(Omeprazole PRN), asthma, HTN, hyperlipidemia, migraines (Fioricet as needed), ? duodenal ulcer, hernia, presents with onset of epigastric/lower abdominal pain. Reports acute on chronic,
intermittent abdominal pain over the past ten years but reports that this current episode was much more intense. No nausea or vomiting, but does not decreased p.o intake along with an unintentional weight loss of 35 lbs. Labs grossly normal on
admission except for BUN 28 and [employer] 1.4. Non-contrast CT concern for an acute perforated ulcer with loculated collection however upon further Radiology review/addendum there was no evidence of extraluminal collection of air or fluid, only some
nonspecific thickening of the proximal duodenal wall. Follow-up UGI as recommended by surgery revealed luminal narrowing and mucosal irregularity in the proximal 2nd portion concerning for PUD (ie deep penetrating ulcer ?) versus duodenal
adenocarcinoma. Denies any NSAIDs or other obvious risk factors for PUD and given weight loss malignancy needs to be rule out. 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
without any biliary ductal dilatation seen on imaging.
S/p EGD on 10/26/23: - Normal proximal esophagus and mid esophagus.
- Small, superficial esophageal ulcer with no bleeding
and no stigmata of recent bleeding. Biopsied.
- Non-obstructing and mild Schatzki ring at 43 cms.
- Few, scattered non-bleeding gastric ulcers with a
clean ulcer base (Nikita Class III). Biopsied.
- Otherwise, normal stomach on direct and retroflexion
views. Biopsied to rule out H pylori.
- Large, partially obstructing, cratered duodenal
ulcer with a flat pigmented spot (Nikita Class IIc).
The ulcer was deeply penetrating and approximately 3
cms in size. The ulcer was carefully biopsied to r/o
malignancy.
- Few, scattered non-bleeding duodenal ulcers with a
clean ulcer base (Nikita Class III) in the duodenal
bulb.
- Otherwise, normal first portion of the duodenum and
second portion of the duodenum.
- The examination was otherwise normal.
Recommendations:
- Tolerating CLD, may advance diet as tolerated to low-residue diet
- Hgb remains stable, no signs of bloody stools
- Continue PPI 40 mg BiD x 8 weeks and then once daily until repeat EGD
- Await pathology results (sent for [place]) although suspicious for NSAID-induced PUD
- Ultimately, will require a repeat EGD in 8 - 12 weeks as an outpatient. Can also address possibility of performing a colonoscopy at that time as well (reports hx of polyps) and reported unintentional weight loss
- Strict avoidance of all NSAIDs
- Surgery following, appreciate recs
- Rest of care per primary team. Discussed with primary IM team this AM
Subjective
Subjective
Date of Service: October 27, 2023
- S/p EGD on 10/26/23: With multiple ulcers (esophageal, gastric and duodenal) with large, penetrating duodenal ulcer (FC IIc) without any old or fresh blood throughout the GI tract
- Hgb remains stable, no signs of overt GI bleeding
- Otherwise, no acute events overnight
Resting comfortably this AM, however complaining of headache. Denies any abdominal pain, nausea/vomiting or dark/bloody stools. Tolerated CLD without diffculty.
Objective
Data Reviewed
Laboratory Data:
Laboratory Results
09/05/24 05:40
10/27/23 05:40
Laboratory Results
PT 13.5 Sec (11.4-14.6) 10/26/23 05:17
INR 1.03 10/26/23 05:17
Total Bilirubin 0.9 mg/dl (0.2-1.3) 10/24/23 06:16
AST 20 U/L (14-36) 10/24/23 06:16
ALT 11 U/L (0-35) 10/24/23 06:16
Alkaline Phosphatase 72 U/L (38-126) 10/24/23 06:16
Lipase 218 U/L (23-300) 10/24/23 06:16
Vital Signs and I&O:
Vital Signs
Temp Pulse Resp BP Pulse Ox
98.1 F 63 18 117/51 100
10/27/23 07:41 10/27/23 08:32 10/27/23 08:32 10/27/23 07:41 10/27/23 08:32
I&O
10/26/23 10/27/23 10/28/23
06:59 06:59 06:59
Intake Total 3120 / 3120 840 / 840
Balance 3120 / 3120 840 / 840
Physical Exam
Physical Exam
HEENT: Anicteric and Moist mucous membranes
Cardiology: Normal Sinus Rhythm
Pulmonary: Other (Normal WOB on room air)
GI: Soft, Non Distended, Flat and Non Tender
Extremities: Warm
Neuro: Non Focal and Other
[2023-10-27 15:19] VITALS: BP 119/52
--- NOTE | 2023-10-27 16:05 | W.DCSUMMARY ---
Discharge Summary
Discharge Data
Date of Admission: 10/24/23
Date of Discharge: 10/27/23
-
Pending Results: No
Hospital Course
Primary diagnoses:
NSAID induced esophageal, gastric, and duodenal ulcers
Secondary diagnoses:
Essential hypertension
Gastroesophageal flux disease
Asthma
Chronic heart failure with preserved ejection
Hyperlipidemia
Migraine headaches
Consultants:
Gastroenterology
General surgery
Imaging:
CT A/P:
1. ACUTE PERFORATED PROXIMAL DUODENAL ULCER.
2. 5.9 cm loculated collection of fluid and air adjacent to the proximal duodenum.
3. Moderate chronic bilateral renal disease.
4. Small calcified granulomas in the spleen.
5. Previous cholecystectomy, hysterectomy, and left inguinal hernia repair.
6. Mild cardiomegaly.
UGI-series:
1. 3 cm in length segment of luminal narrowing and mucosal irregularity in the proximal 2nd portion of the duodenum corresponding to a segment of wall thickening seen on the CT examination performed 10/24/2023. Diagnostic possibilities are (1)
inflammatory wall thickening from peptic ulcer disease or (2) duodenal adenocarcinoma.
2. 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
3. No fluoroscopic evidence for gastric outlet or duodenal obstruction.
4. No fluoroscopic evidence for extravasation of contrast into the peritoneal cavity.
EGD 10/26/23:
- Normal proximal esophagus and mid esophagus.
- Small, superficial esophageal ulcer with no bleeding
and no stigmata of recent bleeding. Biopsied.
- Non-obstructing and mild Schatzki ring at 43 cms.
- Few, scattered non-bleeding gastric ulcers with a
clean ulcer base (Nikita Class III). Biopsied.
- Otherwise, normal stomach on direct and retroflexion
views. Biopsied to rule out H pylori.
- Large, partially obstructing, cratered duodenal
ulcer with a flat pigmented spot (Nikita Class IIc).
The ulcer was deeply penetrating and approximately 3
cms in size. The ulcer was carefully biopsied to r/o
malignancy.
- Few, scattered non-bleeding duodenal ulcers with a
clean ulcer base (Nikita Class III) in the duodenal
bulb.
- Otherwise, normal first portion of the duodenum and
second portion of the duodenum.
- The examination was otherwise normal.
Hospital course: 83-year-old female presented with chief complaints of right lower quadrant pain and nausea is on H&P done on admission. Patient had a CT scan of the abdomen pelvis as above. There was concern for duodenal perforation. The patient
was evaluated general surgery. Upper GI series was done as above and did not show duodenal perforation. Patient was kept n.p.o. and supported with IV fluids. She had an EGD as above notable for esophageal, gastric, and duodenal ulcers. The
patient admitted to taking 'whenever I can get my hands on' for her migraine headaches. This clearly included NSAIDs. She was advised to stop taking NSAIDs. Patient will be discharged on Protonix twice daily. She will need follow-up with GI for
repeat EGD to ensure healing of her ulcers.
Discharge Plan
-
Patient Disposition: Home (Routine Discharge)
Discharge Diagnosis/Procedures: NSAID induced esophageal, gastric, and duodenal ulcers
Condition: Good
Diet: Low Residue
Activity: No restrictions
Driving Restrictions: As prior to admission
Blood Work: CBC and BMP in 1 week, script from PCP
Referrals:
Oswaldo Sandoval MD [Active] - in two to four weeks
Juan M Murphy MD [Family Provider] - in less than 1 week
Prescriptions:
New
ewlkcupsuz-czgcpljsclwcd-knnk 50-325-40 mg Tablet
1 tab PO DAILY PRN (Reason: migraine headache) Qty: 0 0RF
pantoprazole 40 mg Tablet,Delayed Release (Dr/Ec)
40 mg PO BID Qty: 60 0RF
Continued
diphenhydramine HCl [Banophen] 50 MG capsule
50 mg PO HSPRN PRN (Reason: allergies)
calcium carbonate [Oyster Shell Calcium 500] 500 MG tablet
500 mg PO DAILY
albuterol sulfate 1 PUFF HFA aerosol inhaler
2 puff inhalation R Q4HPRN PRN (Reason: shortness of breath)
glucosamine-chondroitin 1 CAP capsule
1 cap PO BIDPRN PRN (Reason: supplement)
docosahexaenoic acid-epa 1 CAP capsule
1 cap PO BIDPRN PRN (Reason: supplement)
multivitamin with folic acid [Tab-A-Shaunna] 1 TABLET tablet
1 tab PO DAILY
losartan 50 mg tablet
50 mg PO DAILY
prochlorperazine maleate 10 mg tablet
10 mg PO TIDPRN PRN (Reason: nausea)
cholecalciferol (vitamin D3) 50 mcg (2,000 unit) Tablet
50 mcg PO DAILY
budesonide-formoterol 160-4.5 mcg/actuation HFA aerosol inhaler
1 puff INHALATION R BID
Discontinued
hydrochlorothiazide 25 MG tablet
25 mg PO DAILY
omeprazole 40 mg capsule,delayed release(DR/EC)
40 mg PO DAILY
vadprqljat-ygmvhhtovkndz-yuhs 50-300-40 mg capsule
1 cap PO PRN PRN (Reason: migraine)
Patient Comments:
10/24/2023: Pt states may take once to 5 times a day.
Discharge Orders:
Discharge Patient (As Directed); Ordered 10/27/23
Ordered By: Que Caceres
Discharge Date and Time
Print Language: FAROESE
--- NOTE | 2023-10-27 16:11 | CM ---
MD entered order for discharge.
Spoke with and pt Offered VN . Pt declined .
Jose Francisco will drive pt home.
PLAN Home no needs
== END 2023-10-27 17:35 | disposition home or self-care (01) | DRG 381 ==
LOC: 3 WEST ACU 10:07
PROVIDERS: Emergency Medicine; Nurse Practitioner Adult Health; Student in an Organized Health Care Education/Training Program; ADMITTING PHYSICIAN Internal Medicine; CONSULT PHYSICIAN Surgery; EMERGENCY PHYSICIAN Emergency Medicine; FAMILY PHYSICIAN Family Medicine; OTHER PHYSICIAN Specialist
PROC: 0DB58ZZ Excision of Esophagus, Via Natural or Artificial Opening Endoscopic (ICD-10-PCS; 2023-10-26)
PROC: 0DB68ZX Excision of Stomach, Via Natural or Artificial Opening Endoscopic, Diagnostic (ICD-10-PCS; 2023-10-26)
DX: K26.1 Acute duodenal ulcer with perforation (principal); I50.32 Chronic diastolic (congestive) heart failure; K26.5 Chronic or unspecified duodenal ulcer with perforation; I11.0 Hypertensive heart disease with heart failure; Z66 Do not resuscitate; T39.395A Adverse effect of other nonsteroidal anti-inflammatory drugs [NSAID], initial encounter; J45.909 Unspecified asthma, uncomplicated; K22.2 Esophageal obstruction; K25.9 Gastric ulcer, unspecified as acute or chronic, without hemorrhage or perforation
CPT/HCPCS: 88305; 88312; 74176; 74240; 80048; 80053; 83690; 84484; 85025; 85027; 85610; 88342; 93005; 94640; 96361; 96374; 96375; 99285

== ENCOUNTER 2023-11-02 03:39 | Inpatient (IN) | payer MEDICARE, OTHER, SELFPAY ==
[2023-11-01 17:20] VITALS: BP 139/96
[2023-11-01 19:25] VITALS: BMI 28.3
--- NOTE | 2023-11-01 19:35 | ED.GENMED ---
History of Present Illness
<NEVILLE Solano - Last Filed: 11/02/23 15:14>
General
Chief Complaint: Abdominal Pain
Source: patient
Exam Limitations: none
Time Seen by Provider: 11/01/23 18:36
Nursing documentation reviewed up to this point in time: agreed with
History of Present Illness
History of Present Illness:
Patient is an 83-year-old female with Past medical history of hypertension reflux heart failure hyperlipidemia migraine headaches NSAID induced esophageal gastric and duodenal ulcers here in the ER with pain. Patient was just admitted October 23
and discharged October 5 days ago. CAT scan at that time showed concern for duodenal perforation patient was seen by surgery and upper GI series was done and did not show duodenal perforation. Patient was kept n.p.o. and given supportive IV
fluids. Esophageal gastric and duodenal ulcers were noted however on EGD and this was attributed to NSAID use. Patient was discharged on Protonix twice daily.
Patient reports she was doing fine and had a great day yesterday but today when she took her Protonix started vomiting and had abdominal pain. She has had discomfort throughout the day her nausea is getting a little bit better. She was able to
tolerate a little bit of 7-Up. She denies any black or dark stools. Denies any lightheaded weakness.
Past History
<NEVILLE Solano - Last Filed: 11/02/23 15:14>
Past History
ED Past Medical History: Asthma, HTN and Other (Migraines)
ED Past Surgical History: Orthopedic and Other (Hernia)
Social History
Tobacco: Non-smoker
Personal:
Living: with family
Review of Systems
<NEVILLE Solano - Last Filed: 11/02/23 15:14>
Review of Systems
Allergies reviewed?: Yes
Other source history: family
All Other Systems: ROS reviewed and negative except as documented in HPI and ROS
Constitutional: Reports no symptoms; Denies fever, fatigue or chills
Respiratory: Reports no symptoms
Cardiac: Reports no symptoms
ABD/GI: Reports abdominal pain, nausea and vomiting; Denies black stools
: Reports no symptoms
Musculoskeletal: Reports no symptoms
Skin: Reports no symptoms
Neurological: Reports no symptoms
Psychiatric: Reports no symptoms
Phy Exam
<NEVILLE Solano - Last Filed: 11/02/23 15:14>
General Physical Exam
General Presentation: no apparent distress
General age: appears stated age
General Skin: warm and dry
General Habitus: normal
General Mental: alert
General Hydration: appears well hydrated
Gastrointestinal Exam
Gastrointestinal Exam: soft and other (epigastric tenderness )
Neurological Exam
Neurological Exam: alert and oriented x3
Musculoskeletal Exam
Musculoskeletal Exam: full ROM
Skin Exam
Skin Exam: normal color and warm/dry
Psychiatric Exam
Psychiatric Exam: normal mood/affect
Course
<NEVILLE Solano - Last Filed: 11/02/23 15:14>
Orders/Labs/Results
Orders:
Orders
11/01/23 19:33
CMP [Comprehensive Metabolic Panel] Urgent
Complete Blood Count/With Diff Urgent
11/01/23 19:45
Ondansetron Injectable [Zofran] 4 mg IV NOW STA
Pantoprazole [Protonix IV] 40 mg IV NOW STA
11/01/23 19:46
Mag Hydrox/Al Hydrox/Simeth [Maalox] 30 ml Phenobarb/Hyoscy/Atropine/Scop [] 10 ml PO NOW
11/01/23 19:55
Mag Hydrox/Al Hydrox/Simeth [Maalox] 30 ml .ROUTE .STK-MED ONE
Phenobarb/Hyoscy/Atropine/Scop [] 10 ml .ROUTE .STK-MED ONE
11/01/23 20:44
Add On- LAB Urgent
Tests Added?: troponin
11/01/23 20:45
Electrocardiogram (*1) Stat
Reason for Study: Other
Other Reason for Exam: chest pain
EKG- Treatment ONCE
11/01/23 21:26
Troponin I Urgent
11/01/23 21:35
Ondansetron Injectable [Zofran] 4 mg IV NOW STA
11/01/23 22:25
Nitroglycerin Sublingual [Nitrostat (Sublingual)] 0.4 mg SL NOW STA
11/01/23 22:26
Nitroglycerin Sublingual [Nitrostat (Sublingual)] 0.4 mg SL NOW STA
11/01/23 23:14
Ondansetron Injectable [Zofran] 4 mg IV NOW STA
11/01/23 23:15
Metoclopramide [Reglan] 10 mg IV NOW STA
11/01/23 23:17
Iohexol [Omnipaque] See Protocol PO NOW STA
11/01/23 23:39
EKG- Treatment ONCE
11/02/23 00:20
Abdomen Xray - 1 View [CR Abdomen - 1 View] Urgent
Comment:
Reason For Exam: pain recent barium
11/02/23 00:30
Electrocardiogram (*1) Urgent
Reason for Study: Chest Pain
11/02/23 00:55
Troponin I Urgent
11/02/23 01:15
CT Abd/pel (oral only)-[facility] Only Urgent
Comment: pt allergic hives and respiratory distress, DR Matthew oral only
Reason For Exam: upper abd pain
11/02/23 02:44
Admit/Transfer Patient As Directed
Co-Sign Provider:
Level of Care: Inpatient admission
Assign to:: Medical/Surgical
Physician / Group: Tyree
Diagnosis: Duodenal Ulcer
Reason for Hospitalization: Duodenal Ulcer
Expected length of stay greater than two midnights?: Yes
ELOS- Estimated Length of Stay in days: 2
I certify the patient meets the requirements for IP care: Yes
PRN Pain Medication Management As Directed
May give lesser potent ordered pain med per pt: Yes
preference::
Protocol:: Medication orders for pain may be administered in a
manner that supports deferring to patient preference
when the pt is:
- Requesting an ordered lesser potent pain medication.
Least to most potent pain medications are defined
as: acetaminophen < NSAID < tramadol < opioids
(morphine, oxycodone, hydromorphone).
- Requesting a lesser dose of the same medication IF
ORDERED.
- Requesting a less intrusive route of administration
if both routes are prescribed by the provider (PO <
IV).
11/02/23 02:45
Code Status As Directed
Resuscitation Status: Do not resuscitate
Reached after discussion with pt or family/Healthcare POA: Yes
DNR Bracelet Application ONCE
11/02/23 03:06
Acetaminophen [Tylenol] 650 mg PO Q4HPRN PRN
11/02/23 05:37
Albuterol Nebs [Ventolin Nebules] 2.5 mg INH R Q4HPRN PRN
Lactated Ringers [Lr] 1,000 ml IV 85 mls/hr
Ondansetron Injectable [Zofran] 4 mg IV Q6HPRN PRN
11/02/23 05:37
Consult Notification Routine
Specialty to Notify: Gastroenterology
Date consulting provider notified: 11/02/23
Time consulting provider notified: 07:03
Notified:: Provider
Comment: TT Dr Avilez
GASTROINTESTINAL CONSULT Routine
Consulting Provider: Jazmyn Avilez
Was physician already notified: No
Reason for consult: Duodenal Ulcer
Activity As Directed
Activity Level: Ambulate
With Assistance
I/O [Intake/ Output] As Directed
Frequency: Per unit guidelines
Orthostatic Vital Signs As Directed
Orthostatic VS Frequency: BID
Pneumatic Compression Sleeves As Directed
Type: Knee high
Vital Signs As Directed
Frequency: Per unit guidelines
Oxygen Therapy [O2 Therapy] [RESP] Routine
Titrate/Wean O2 to maintain O2 sat greater than (%): 94
DX Deep Vein Thrombosis Video Routine
11/02/23 Breakfast
NPO
Allow oral meds: Yes
Allow clear liquids: Sips of Clears
11/02/23 08:00
Budesonide/Formoterol 160/4.5 [Symbicort 160/4.5 Mcg Inhaler] 1 puff INH R BID
Losartan [Cozaar] 50 mg PO DAILY
Pantoprazole [Protonix IV] 40 mg IV BID
11/02/23 09:58
Basic Metabolic Panel IN AM
Complete Blood Count/No Diff IN AM
Abnormal Lab Results
11/01/23 11/01/23 11/02/23
19:33 21:26 00:55
RBC 4.05 L 10^6/uL
(4.20-5.40)
MCV 100.2 H fL
(81.0-99.0)
MCH 32.8 H pg
(27.0-31.0)
MCHC 32.8 L g/dL
(33.0-37.0)
Absolute Neuts (auto) 8.4 H 10^3/uL
(1.4-6.5)
Absolute Lymphs (auto) 0.8 L 10^3/uL
(1.2-3.4)
Neutrophils % 85.4 H %
(42.2-75.2)
Lymphocytes % 8.2 L %
(20.5-51.1)
BUN 20 H mg/dl
(7-17)
Glucose 113 H mg/dl
(70-99)
Troponin I 0.048 H* ng/ml 0.056 H* ng/ml
11/01/23 19:33
11/01/23 19:33
Vital Signs
Initial and Last Documented VS:
Initial Vital Signs
Temp Pulse Resp BP Pulse Ox
97.7 F 82 16 139/96 97
11/01/23 17:20 11/01/23 17:20 11/01/23 17:20 11/01/23 17:20 11/01/23 17:20
Last Documented Vital Signs
Temp Pulse Resp BP Pulse Ox
98 F 80 18 120/68 93
11/02/23 15:07 11/02/23 15:07 11/02/23 15:07 11/02/23 15:07 11/02/23 15:07
Tool Pusher consulted with Physician
Tool Pusher consulted with physician?: Yes
Name of Physician Consulted: Tiff
<Mushtaq Matthew, DO - Last Filed: 11/01/23 23:03>
Orders/Labs/Results
Orders:
Orders
11/01/23 19:33
CMP [Comprehensive Metabolic Panel] Urgent
Complete Blood Count/With Diff Urgent
11/01/23 19:45
Ondansetron Injectable [Zofran] 4 mg IV NOW STA
Pantoprazole [Protonix IV] 40 mg IV NOW STA
11/01/23 19:46
Mag Hydrox/Al Hydrox/Simeth [Maalox] 30 ml Phenobarb/Hyoscy/Atropine/Scop [] 10 ml PO NOW
11/01/23 19:55
Mag Hydrox/Al Hydrox/Simeth [Maalox] 30 ml .ROUTE .STK-MED ONE
Phenobarb/Hyoscy/Atropine/Scop [] 10 ml .ROUTE .STK-MED ONE
11/01/23 20:44
Add On- LAB Urgent
Tests Added?: troponin
11/01/23 20:45
Electrocardiogram (*1) Stat
Reason for Study: Other
Other Reason for Exam: chest pain
EKG- Treatment ONCE
11/01/23 21:26
Troponin I Urgent
11/01/23 21:35
Ondansetron Injectable [Zofran] 4 mg IV NOW STA
11/01/23 22:25
Nitroglycerin Sublingual [Nitrostat (Sublingual)] 0.4 mg SL NOW STA
11/01/23 22:26
Nitroglycerin Sublingual [Nitrostat (Sublingual)] 0.4 mg SL NOW STA
11/01/23 23:14
Ondansetron Injectable [Zofran] 4 mg IV NOW STA
11/01/23 23:15
Metoclopramide [Reglan] 10 mg IV NOW STA
11/01/23 23:17
Iohexol [Omnipaque] See Protocol PO NOW STA
11/01/23 23:39
EKG- Treatment ONCE
11/02/23 00:20
Abdomen Xray - 1 View [CR Abdomen - 1 View] Urgent
Comment:
Reason For Exam: pain recent barium
11/02/23 00:30
Electrocardiogram (*1) Urgent
Reason for Study: Chest Pain
11/02/23 00:55
Troponin I Urgent
11/02/23 01:15
CT Abd/pel (oral only)-[facility] Only Urgent
Comment: pt allergic hives and respiratory distress, DR Matthew oral only
Reason For Exam: upper abd pain
11/02/23 02:44
Admit/Transfer Patient As Directed
Co-Sign Provider:
Level of Care: Inpatient admission
Assign to:: Medical/Surgical
Physician / Group: Tyree
Diagnosis: Duodenal Ulcer
Reason for Hospitalization: Duodenal Ulcer
Expected length of stay greater than two midnights?: Yes
ELOS- Estimated Length of Stay in days: 2
I certify the patient meets the requirements for IP care: Yes
PRN Pain Medication Management As Directed
May give lesser potent ordered pain med per pt: Yes
preference::
Protocol:: Medication orders for pain may be administered in a
manner that supports deferring to patient preference
when the pt is:
- Requesting an ordered lesser potent pain medication.
Least to most potent pain medications are defined
as: acetaminophen < NSAID < tramadol < opioids
(morphine, oxycodone, hydromorphone).
- Requesting a lesser dose of the same medication IF
ORDERED.
- Requesting a less intrusive route of administration
if both routes are prescribed by the provider (PO <
IV).
11/02/23 02:45
Code Status As Directed
Resuscitation Status: Do not resuscitate
Reached after discussion with pt or family/Healthcare POA: Yes
DNR Bracelet Application ONCE
11/02/23 03:06
Acetaminophen [Tylenol] 650 mg PO Q4HPRN PRN
11/02/23 05:37
Albuterol Nebs [Ventolin Nebules] 2.5 mg INH R Q4HPRN PRN
Lactated Ringers [Lr] 1,000 ml IV 85 mls/hr
Ondansetron Injectable [Zofran] 4 mg IV Q6HPRN PRN
11/02/23 05:37
Consult Notification Routine
Specialty to Notify: Gastroenterology
Date consulting provider notified: 11/02/23
Time consulting provider notified: 07:03
Notified:: Provider
Comment: TT Dr Avilez
GASTROINTESTINAL CONSULT Routine
Consulting Provider: Jazmyn Avilez
Was physician already notified: No
Reason for consult: Duodenal Ulcer
Activity As Directed
Activity Level: Ambulate
With Assistance
I/O [Intake/ Output] As Directed
Frequency: Per unit guidelines
Orthostatic Vital Signs As Directed
Orthostatic VS Frequency: BID
Pneumatic Compression Sleeves As Directed
Type: Knee high
Vital Signs As Directed
Frequency: Per unit guidelines
Oxygen Therapy [O2 Therapy] [RESP] Routine
Titrate/Wean O2 to maintain O2 sat greater than (%): 94
DX Deep Vein Thrombosis Video Routine
11/02/23 Breakfast
NPO
Allow oral meds: Yes
Allow clear liquids: Sips of Clears
11/02/23 08:00
Budesonide/Formoterol 160/4.5 [Symbicort 160/4.5 Mcg Inhaler] 1 puff INH R BID
Losartan [Cozaar] 50 mg PO DAILY
Pantoprazole [Protonix IV] 40 mg IV BID
11/02/23 09:58
Basic Metabolic Panel IN AM
Complete Blood Count/No Diff IN AM
Abnormal Lab Results
11/01/23 11/01/23 11/02/23
19:33 21:26 00:55
RBC 4.05 L 10^6/uL
(4.20-5.40)
MCV 100.2 H fL
(81.0-99.0)
MCH 32.8 H pg
(27.0-31.0)
MCHC 32.8 L g/dL
(33.0-37.0)
Absolute Neuts (auto) 8.4 H 10^3/uL
(1.4-6.5)
Absolute Lymphs (auto) 0.8 L 10^3/uL
(1.2-3.4)
Neutrophils % 85.4 H %
(42.2-75.2)
Lymphocytes % 8.2 L %
(20.5-51.1)
BUN 20 H mg/dl
(7-17)
Glucose 113 H mg/dl
(70-99)
Troponin I 0.048 H* ng/ml 0.056 H* ng/ml
11/01/23 19:33
11/01/23 19:33
Vital Signs
Initial and Last Documented VS:
Initial Vital Signs
Temp Pulse Resp BP Pulse Ox
97.7 F 82 16 139/96 97
11/01/23 17:20 11/01/23 17:20 11/01/23 17:20 11/01/23 17:20 11/01/23 17:20
Last Documented Vital Signs
Temp Pulse Resp BP Pulse Ox
98 F 80 18 120/68 93
11/02/23 15:07 11/02/23 15:07 11/02/23 15:07 11/02/23 15:07 11/02/23 15:07
<NEVILLE Solano - Last Filed: 11/02/23 15:14>
MDM/Problems Addressed
Differential Diagnosis Includes:
Not limited to duodenal ulcer. GERD less likely cardiac
MDM/Problems Addressed:
Patient is a 83-year-old female who present to the ER complaining of epigastric pain. Patient was recently discharged with diagnosis of NSAID induced esophageal gastric and duodenal ulcers. Patient was sent home on Protonix was doing well until
today. While taking her Protonix she had pain and vomiting. Patient was initially given Protonix here along with Zofran. Patient was then given GI cocktail and complained of worsening pain. She pointed to her epigastric area/chest area. She had
an EKG which was unremarkable troponin was ordered. Troponin however came back elevated. On reassessment patient reports when she does feel pain in her chest she also feels in her neck. will order a NTG .
Case discussed with ED physician.
Prior imaging reviewed .
Pain is likely from ulcers with patient's age and severity of pain we will repeat CAT scan. Patient has listed iodine allergy but reports iodine causes vomiting will give dose of Zofran and order p.o. and IV contrast. Will plan to repeat troponin
patient however will require admission for continued pain.
In regards to other labs hemoglobin is stable at 13.3 white count is normal at 9.8 and chemistries unremarkable.
Chronic conditions affecting care:
previous nsaid use ;recent dx of ulcer disease
<NEVILLE Solano - Last Filed: 11/02/23 15:14>
*Pulse Oximetry
Patient hypoxic: no
*Critical Care Note
Total Time (30-74mins, 75-104mins- exclusive of procedures): Not Applicable
ED Attending Note
<NEVILLE Solano - Last Filed: 11/02/23 15:14>
-
Portions of this chart may have been created with voice recognition software.� Occasional wrong word or��sound alike� substitutions may have occurred due to the inherent limitations of voice recognition software.
<Mushtaq Matthew DO - Last Filed: 11/01/23 23:03>
ED Attending Note
Patient seen and examined by attending physician: Yes
I performed a history and physical exam of patient and discussed management with resident, I reviewed resident's note and agree with documented findings and plan of care.: Yes
ED Attending Note:
I agree with Sulma's note
Patient complaining of abdominal pain. Pain is located in the right upper abdomen. Patient was given a dose of a GI cocktail here in the emergency room which seem to make her pain worse. That pain is located in the epigastrium. No shortness of
breath. Reviewed imaging studies and notes from patient's recent hospitalization. Her duodenal ulcer was described as partially obstructing on the endoscopy note. Her upper GI showed that contrast material was passing through.
General: Awake, Alert, Oriented X3. No acute distress.
Vitals: unremarkable
Head: Atraumatic
Eyes: Pupils equal, EOMI
Throat: Airway intact, no exudates
Neck: Trachea midline
Lungs: Clear and equal b/l
Heart: Regular rate, no murmurs
Abd: Soft, some tenderness palpation epigastrium and right upper abdomen, no rebound, No pulsatile mass
Neuro: Nonfocal
Skin: Warm, dry, no rash
Extremities: pulses equal b/l, no edema
Patient has some tenderness but certainly does not have a surgical abdomen. There is no evidence of gastric outlet obstruction or duodenal obstruction at the time of the patient's upper GI 8 days ago. Endoscopy report describes the ulcer is
partially obstructing however. Perhaps the patient's pain is increased due to developing obstruction. Doubt that she is perforated as she does not have peritoneal signs. The patient does have a mildly elevated troponin. I feel this is likely
non-TX elevation. This should be trended however. However given her age and recent pathology I think it is appropriate to repeat imaging to exclude obstruction or perforation.
Discharge Plan
Departure
Patient Disposition: Admit
Date of Disposition: 11/02/23
Time of Disposition: 00:39
Admit to: Telemetry
Admit to doctor: tyree
Presentation/result/management discussed w/ accepting MD/DO: Hospitalist
Patient with high blood pressure during this ER visit?: Yes
Condition: Fair
Covid-19: Not Applicable
Discharge Problem:
Abdominal pain, Elevated troponin
Interventions
Interventions:
*Risk Screen - Suicide Last Done: 11/01/23 19:55
*General Assessment Last Done: 11/01/23 19:55
*Neglect/Abuse Screening Last Done: 11/01/23 19:55
ED- Fall Risk Assessment Last Done: 11/01/23 20:00
*ED COVID-19 Vaccine History Last Done: 11/01/23 20:00
*Nursing Disposition Last Done: 11/02/23 05:42
LE-Xqtjgc-Bncvkxpbku Assessment Last Done: 11/01/23 20:00
Discharge Date and Time
Discharge Date/Time: 11/02/23 05:43
[2023-11-01 19:41] LABS: % Basophils 0.5 % (0-2); % Eosinophils 1.1 % (0-6); % Immature Granulocytes 0.2 % (0-0.5); % Lymphocytes 8.2 % (20.5-51.1); % Monocytes 4.6 % (1.7-9.3); % Neutrophils 85.4 % (42.2-75.2); Absolute Basophils 0.1 10^3/uL (0-0.2); Absolute Eosinophils 0.1 10^3/uL (0-0.7); Absolute Lymphocytes 0.8 10^3/uL (1.2-3.4); Absolute Monocytes 0.5 10^3/uL (0.1-0.6); Absolute Neutrophils 8.4 10^3/uL (1.4-6.5); Hematocrit 40.6 % (37.0-47.0); Hemoglobin 13.3 g/dL (12.0-16.0); Mean Corp Hgb Conc. 32.8 g/dL (33.0-37.0); Mean Corpuscular Hgb 32.8 pg (27.0-31.0); Mean Corpuscular Volume 100.2 fL (81.0-99.0); Mean Platelet Volume 8.7 fL (7.4-10.4); Nucleated Red Blood Cells % 0 %; Platelet Count 277 10^3/uL (130-400); Red Blood Cell Count 4.05 10^6/uL (4.20-5.40); Red Cell Dist. Width 13.3 % (11.5-14.5); White Blood Cell Count 9.8 10^3/uL (4.8-10.8)
[2023-11-01 19:56] LABS: ALT (SGPT) 13 U/L (0-35); AST (SGOT) 24 U/L (14-36); Albumin 3.9 g/dl (3.5-5.0); Alkaline Phosphatase 79 U/L (38-126); Blood Urea Nitrogen 20 mg/dl (7-17); Calcium 9.5 mg/dl (8.4-10.2); Carbon Dioxide 24 mmol/L (22-30); Chloride 103 mmol/L (98-107); Estimated Creatinine Clearance 45 ml/min; Glucose 113 mg/dl (70-99); Potassium 3.6 mmol/L (3.5-5.1); Sodium 140 mmol/L (135-145); Total Bilirubin 0.5 mg/dl (0.2-1.3); Total Protein 6.4 g/dl (6.3-8.2); eGFR > 60.00
[2023-11-01] MEDS: PROTONIX IV 40 MG IV (19:57)
[2023-11-01] MEDS: ZOFRAN 4 MG IV ×2 (19:57→21:40)
[2023-11-01] MEDS: MAALOX 40 PO (20:32)
[2023-11-01 20:34] VITALS: BP 166/81
[2023-11-01 22:03] LABS: Troponin I 0.048 ng/ml
[2023-11-01] MEDS: NITROSTAT (SUBLINGUAL) 0.4 MG SL (22:31)
[2023-11-01 22:35] VITALS: BP 113/66
[2023-11-01 23:00] VITALS: BP 121/65
[2023-11-01] MEDS: REGLAN 10 MG IV (23:24)
[2023-11-01] MEDS: OMNIPAQUE 50 ML PO (23:24)
[2023-11-02 01:42] LABS: Troponin I 0.056 ng/ml
--- NOTE | 2023-11-02 02:48 | HPS.HSE ---
Family Physician
-
Family Physician: Juan M Murphy MD
Chief Complaint
-
Abd Pain, N/V
History of Present Illness
Patient is an 83y F with PMH significant for hypertension, migraines and recent hospitalization for duodenal ulcer who presents to ED complaining of abdominal pain and N/V. Patient was previously admitted 10/23 - 10/26 for similar symptoms. She
underwent EGD on 10/25 which showed large duodenal ulcer and biopsies were taken at that time (which were unremarkable). Patient was placed on BID PPI and discharged to home. She states that she had chan feeling well since that time. This AM, she
took her morning pills and became nauseated. She had an episode of emesis and this was followed by development of severe RUQ and epigastric pain. Her symptoms persisted throughout the day and she presented to the ED for further evaluation and
treatment.
At the time of my examination, patient is resting comfortably and notes that her pain and nausea have improved.
Medical History
Past Medical History
Past Medical History: Reports Other
Additional Past Medical History:
Essential hypertension
GERD
Duodenal Ulcer
Asthma
Chronic HFpEF
HLD
Migraines
Past Surgical History: Reports Other
Additional Past Surgical History:
Appendectomy
Cholecystectomy
ABIMAEL
Hernia Repair
Social History
Tobacco: Non-smoker
Alcohol: None
Drug: None
Family History
Family History: Not pertinent
Allergies / Home Medications
Allergies reflects when Allergies were last updated in [facility].
Home Medications with original date entered in [facility]
Allergy/Medication List:
Allergies
Allergy/AdvReac Type Severity Reaction Status Date / Time
cephalexin monohydrate Allergy Anaphylaxis Verified 11/01/23 19:32
[From Keflex]
ciprofloxacin [From Cipro] Allergy Nausea / Verified 11/01/23 19:32
Vomiting /
Headache
clindamycin Allergy Anaphylaxis Verified 11/01/23 19:32
codeine Allergy Nausea / Verified 11/01/23 19:32
Vomiting /
Headache
erythromycin base Allergy Anaphylaxis Verified 11/01/23 19:32
[Erythromycin Base]
gentamicin [Gentamicin] Allergy Anaphylaxis Verified 11/01/23 19:32
iodine Allergy Vomiting Verified 11/01/23 23:13
levofloxacin [From Levaquin] Allergy Anaphylaxis Verified 11/01/23 19:32
Penicillins Allergy Anaphylaxis Verified 11/01/23 19:32
Tetracyclines Allergy Anaphylaxis Verified 11/01/23 19:32
vancomycin Allergy Anaphylaxis Verified 11/01/23 19:32
morphine AdvReac Shortness Verified 11/01/23 19:32
of Breath
mycin Allergy Anaphylaxis Uncoded 11/01/23 19:32
Home Medications
albuterol sulfate 90 mcg/actuation aerosol inhaler 2 puff inhalation R Q4HPRN PRN shortness of breath 06/23/14
calcium carbonate (Oyster Shell Calcium 500) 500 mg PO DAILY Supplement 06/23/14
diphenhydramine HCl 50 mg capsule (Banophen) 50 mg PO HSPRN PRN allergies 06/23/14
docosahexaenoic acid (dha)-epa 120 mg-180 mg capsule 1 cap PO BIDPRN PRN supplement 06/23/14
glucosamine-chondroitin 500 mg-400 mg capsule 1 cap PO BIDPRN PRN supplement 06/23/14
multivitamin with folic acid 400 mcg tablet (Tab-A-Shaunna) 1 tab PO DAILY Supplement 06/23/14
budesonide-formoterol HFA 160 mcg-4.5 mcg/actuation aerosol inhaler 1 puff inhalation R BID Lung/Breathing Issues 10/24/23
cholecalciferol (vitamin D3) 50 mcg (2,000 unit) tablet 50 mcg PO DAILY Supplement 10/24/23
losartan 50 mg tablet 50 mg PO DAILY Blood Pressure 10/24/23
prochlorperazine maleate 10 mg tablet 10 mg PO TIDPRN PRN nausea 10/24/23
pantoprazole 40 mg tablet,delayed release 40 mg PO BID #60 tabs 10/27/23
vfyawqxdwg-nrldsvovgwkrg-ynzsnwsf 50 mg-325 mg-40 mg tablet 1 tab PO DAILYPRN PRN migraine headache 11/01/23
Review of Systems
-
History Source: Patient
A 12 point ROS was completed and negative except as noted: Yes
Constitutional: Denies Fever or Chills
Respiratory: Denies Cough or Trouble Breathing
Cardiac: Denies Chest Pain or Palpitations
Abdomen/GI: Reports Abdominal Pain, Nausea and Vomiting; Denies Diarrhea, Constipated, Bloody Stools or Black Stools
: Denies Dysuria, Frequency or Flank Pain
Musculoskeletal: Denies Joint Pain or Edema
Neurological: Denies Dizzy or Headache
Psych: Denies Depression or Anxiety
Physical Exam
Vital Signs
Vital Signs
Temp Pulse Resp BP Pulse Ox
97.7 F 84 16 121/65 99
11/01/23 17:20 11/01/23 23:30 11/01/23 23:30 11/01/23 23:00 11/01/23 23:00
Physical Exam
General: Other (83y F in no acute distress at present.)
HEENT: PERRLA and Other (Dry MM.)
Respiratory: Clear; No Wheezes, Rales or Rhonchi
Cardiac: S1/S2 and Regular Rhythm; No Murmur
GI: Soft, Non Distended, Normal Bowel Sounds and Other (Mildly tender in RUQ and epigastric areas. No rebound / guarding.)
Musculoskeletal: No Clubbing, No Cyanosis and No Edema
Neuro: AO x 3
Laboratory Results
-
11/01/23 19:33
11/01/23 19:33
Laboratory Results
Total Bilirubin 0.5 mg/dl (0.2-1.3) 11/01/23 19:33
AST 24 U/L (14-36) 11/01/23 19:33
ALT 13 U/L (0-35) 11/01/23 19:33
Alkaline Phosphatase 79 U/L (38-126) 11/01/23 19:33
Troponin I 0.056 ng/ml H* 11/02/23 00:55
Impression/Plan
-
A/P: Patient is an 83y F with PMH significant for hypertension, migraine headaches and recent admission for duodenal ulcer who presents to ED complaining of recurrent abdominal pain with N/V.
Duodenal Ulcer
Abdominal Pain, N/V
- Admit for further evaluation and treatment.
- Continue supportive care with NPO, IVFs, pain control, antiemetics.
- Continue IV PPI BID.
- GI re-evaluation.
- Follow for any new / recurrent symptoms.
- CT scan repeated in the ED this evening and shows no evidence of acute perforation, free air, etc associated with duodenal ulceration.
Benign Hypertension
- Continue losartan with holding parameters.
Asthma without Acute Exacerbation
- Stable. Continue inhaled medications.
Chronic HFpEF
- Stable. No evidence of volume overload on exam
- Patient is not maintained on chronic diuretic regimen.
- Follow I/Os, daily weights, etc.
Migraine Headaches
- Stable. Supportive care if needed
- No NSAIDs given GI ulcerations.
DVT Prophylaxis: SCDs
Code Status: DNR
[2023-11-02 03:05] VITALS: BP 122/66
[2023-11-02] MEDS: TYLENOL 650 MG PO ×4 (03:13→19:42)
[2023-11-02 05:35] VITALS: BMI 27.8
[2023-11-02 05:40] VITALS: BP 135/67
--- NOTE | 2023-11-02 06:09 | PTCARENOTE ---
Pt received from ED at 0540. Pt pleasant, AAOX3, VSS, and able to walk to bed. Pt complains of 7/10 MARY, [employer] contacted and medication ordered by [employer]. Pt bed in lowest position and call mathew within reach. Educated pt on importance of call mathew use. Pt
expresses understanding. Will continue with current plan of care.
[2023-11-02] MEDS: LR 1000 IV ×2 (06:32→21:16)
[2023-11-02] MEDS: COMPAZINE 5 MG IV ×2 (06:33→22:15)
[2023-11-02 07:00] VITALS: BP 117/49; BP 117/79; BP 131/72; BP 135/69; PULSE 64; PULSE 78; PULSE 95
[2023-11-02] MEDS: SYMBICORT 160/4.5 MCG INHALER 1 PUFF INH ×2 (08:06→19:35)
[2023-11-02] MEDS: COZAAR 50 MG PO (08:39)
[2023-11-02] MEDS: NSS (PRESERVATIVE FREE) 10 ML IV ×2 (08:40→19:37)
[2023-11-02] MEDS: PROTONIX IV 40 MG IV ×2 (08:40→19:37)
--- NOTE | 2023-11-02 09:00 | W.PN.HOSP.TC ---
Today's Communication/Plan
-
Upper GI series. PPI.
Assessment / Plan
Assessment / Plan
Physical exam:
General: Acutely ill.
HEENT: Normocephalic, Atraumatic and Moist Mucous Membranes
Respiratory: Clear to Auscultation; Negative Wheezes, Rales or Rhonchi
Cardiac: Regular Rhythm and S1/S2
GI: Soft, tender and Nondistended
Musculoskeletal: No Clubbing, No Cyanosis and No Edema
Neuro: Awake, Alert and Oriented
Psych: Calm
A/P:
Duodenal Ulcer
Abdominal Pain, N/V
- Admitted for further evaluation and treatment.
- Continue supportive care with NPO, IVFs, pain control, antiemetics.
- Continue IV PPI BID. Continue IV fluids (decrease rate) and n.p.o. until cleared by GI.
- GI re-evaluation--> plan for upper GI series. GI was recommended surgery consulted initially but I had GI and surgery discussed to themselves and ultimately decided no surgery consult for now.
- Follow for any new / recurrent symptoms.
- CT scan repeated in the ED this evening and shows no evidence of acute perforation, free air, etc associated with duodenal ulceration.
-Discussed with at bedside
Benign Hypertension
- Continue losartan with holding parameters.
Asthma without Acute Exacerbation
- Stable. Continue inhaled medications.
Chronic HFpEF
- Stable. No evidence of volume overload on exam
- Patient is not maintained on chronic diuretic regimen.
- Follow I/Os, daily weights, etc.
Migraine Headaches
- Stable. Supportive care if needed
- No NSAIDs given GI ulcerations.
DVT Prophylaxis: SCDs
Code Status: DNR
Anticipated Discharge: > 48 hours
Subjective/Interval History
-
Date of Service: November 02, 2023
Patient still has some epigastric discomfort and lower chest discomfort. No shortness of breath. Nausea on and off.
Objective Data
-
Labs:
Laboratory Results
11/02/23
06:00
WBC Pending
Hgb Pending
Hct Pending
Plt Count Pending
Sodium Pending
Potassium Pending
Chloride Pending
Carbon Dioxide Pending
BUN Pending
Creatinine Pending
Glucose Pending
Calcium Pending
Vital Signs:
Vital Signs
Temp Pulse Resp BP Pulse Ox
97.9 F 78 16 117/49 93
11/02/23 07:00 11/02/23 08:13 11/02/23 08:13 11/02/23 08:39 11/02/23 08:13
--- NOTE | 2023-11-02 09:29 | CON.GI ---
Consultation
-
Date/Time Consultation Requested: 11/02/2023 ; 05:37
Date/Time Consultation Performed: 11/02/2023 ; 930
Requesting Provider: Dr. Lit Almodovar
Performing Provider: Dr. Seng Gorman
Reason for Consultation: Duodenal Ulcer
Medical History
Chief Complaint / HPI
Chief Complaint: Abdominal Pain, Nausea/vomiting
History of Present Illness:
Ms Delgado is an 83 year old female with past medical history of GERD, HTN, HLD, migraines (previous NSAID use and Fioricet), chronic HFpEF, colon polyps, and hx of prior duodenal ulcer (years ago, details unclear) with recent admission (10/23 - 10/26 at
) found to have a large, deeply penetrating and partially obstructive ulcer within the first portion of the duodenum who presented to the ED with recurrent epigastric pain and nausea/vomiting.
Patient was recently hospitalized on 10/23 for epigastric abdominal pain and CT imaging concerning for duodenitis (with previous concern for perforation on pre-contreras) and potential deep penetrating ulcer versus contained perforation. General surgery was
further consulted where an UGIS was (-) for extravasation and revealed a 3 cm segment of luminal narrowing and irregularity in the proximal second portion concerning for PUD versus duodenal adenocarinoma along with a 4.0 cm collection concerning for
a dudoenal diverticulum. She eventually underwent an EGD on 10/26/2023 where she was found to have a large, deeply penetrating duodenal ulcer (FC IIc) in the duodenal bulb to the duodenal sweep. Additionally, found to have multiple scattered small
gastric ulcers and small linear esophageal ulcer in the distal esophagus without stigmata of bleeding. Biopsies were obtained and ultimately negative for malignancy, dysplasia, and H pylori. She was eventually discharged on 10/26 and was advised to
continue PPI 40 mg BiD for 8 weeks along with close follow-up with GI for a repeat EGD in 8-12 weeks. She notes she was feeling fine once she got home, however the next day she started to develop worsening epigastric pain. No melena or bloody
stools. However, reports having difficulty keeping soup and liquids down as she continued to have worsening nausea. Unable to tolerate any solid food. Denies any coffee ground emesis, hematemesis, or dysphagia/odynophagia. She reports passing flatus
with last BM two days ago, however reports abdominal distension and worsening bloating. She reports abstaining from NSAIDs since that time and taking her PPI twice daily as prescribed. However, her nausea continued to worsen where she vomited up her
medicines and came back to the ED for further evaluation.
Pertinent Prior GI Records:
S/p EGD on 10/26/23: - Normal proximal esophagus and mid esophagus.
- Small, superficial esophageal ulcer with no bleeding
and no stigmata of recent bleeding. Biopsied.
- Non-obstructing and mild Schatzki ring at 43 cms.
- Few, scattered non-bleeding gastric ulcers with a
clean ulcer base (Nikiat Class III). Biopsied.
- Otherwise, normal stomach on direct and retroflexion
views. Biopsied to rule out H pylori.
- Large, partially obstructing, cratered duodenal
ulcer with a flat pigmented spot (Nikita Class IIc).
The ulcer was deeply penetrating and approximately 3
cms in size. The ulcer was carefully biopsied to r/o
malignancy.
- Few, scattered non-bleeding duodenal ulcers with a
clean ulcer base (Nikita Class III) in the duodenal
bulb.
- Otherwise, normal first portion of the duodenum and
second portion of the duodenum.
- The examination was otherwise normal.
UGIS 10/24/2023- Impression:
1. 3 cm in length segment of luminal narrowing and mucosal irregularity in the proximal 2nd portion of the duodenum corresponding to a segment of wall thickening seen on the CT examination performed 10/24/2023. Diagnostic possibilities are (1)
inflammatory wall thickening from peptic ulcer disease or (2) duodenal adenocarcinoma.
2. 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
3. No fluoroscopic evidence for gastric outlet or duodenal obstruction.
4. No fluoroscopic evidence for extravasation of contrast into the peritoneal cavity.
CT Abd/pelvis 10/24/2023- Impression:
1. ACUTE PERFORATED PROXIMAL DUODENAL ULCER.
2. 5.9 cm loculated collection of fluid and air adjacent to the proximal duodenum.
3. Moderate chronic bilateral renal disease.
4. Small calcified granulomas in the spleen.
5. Previous cholecystectomy, hysterectomy, and left inguinal hernia repair.
6. Mild cardiomegaly.
ADDENDUM: The patient is reportedly not tender in the right upper quadrant of the abdomen. There is a history of previous duodenal surgery. The abnormal morphology of the proximal duodenum could be postsurgical in etiology. There is no definitive
evidence for extraluminal collection of air or fluid. There is thickening of the proximal duodenal wall with adjacent fat stranding which could be postprocedural scarring.
In the ED, patient was afebrile and HD-stable. Labs notable for BUN 20 and Duplicating Machine Operator 0.9. CBC with Hgb 13.3 (prev 10.3 on 10/26), WBC 9.8 and plts 277. Repeat (prelim) CT (-) for acute perforation or free air with associated duodenal ulceration.
Past Medical History
Past Medical History: Other (As listed above- GERD, HTN, HLD, migraines (previous NSAID use and Fioricet), colon polyps, and hx of prior duodenal ulcer, chronic HFpEF)
Past Surgical History: Other (Appendectomy, CCY, ABIMAEL, hernia repair)
Social History
Tobacco: Non-Smoker
Alcohol: None
Drug: None
Family History
Family History: Other (Family hx of CRC, no other family hx of GI malignancy)
Allergies / Home Medications
Allergy/AdvReac Type Severity Reaction Status Date / Time
cephalexin monohydrate Allergy Anaphylaxis Verified 11/01/23 19:32
[From Keflex]
ciprofloxacin [From Cipro] Allergy Nausea / Verified 11/01/23 19:32
Vomiting /
Headache
clindamycin Allergy Anaphylaxis Verified 11/01/23 19:32
codeine Allergy Nausea / Verified 11/01/23 19:32
Vomiting /
Headache
erythromycin base Allergy Anaphylaxis Verified 11/01/23 19:32
[Erythromycin Base]
gentamicin [Gentamicin] Allergy Anaphylaxis Verified 11/01/23 19:32
iodine Allergy Vomiting Verified 11/01/23 23:13
levofloxacin [From Levaquin] Allergy Anaphylaxis Verified 11/01/23 19:32
Penicillins Allergy Anaphylaxis Verified 11/01/23 19:32
Tetracyclines Allergy Anaphylaxis Verified 11/01/23 19:32
vancomycin Allergy Anaphylaxis Verified 11/01/23 19:32
morphine AdvReac Shortness Verified 11/01/23 19:32
of Breath
mycin Allergy Anaphylaxis Uncoded 11/01/23 19:32
�Medication �Instructions �Recorded
albuterol sulfate 90 mcg/actuation 2 puff inhalation R Q4HPRN PRN 06/23/14
aerosol inhaler shortness of breath
calcium carbonate (Oyster Shell 500 mg PO DAILY Supplement 06/23/14
Calcium 500)
diphenhydramine HCl 50 mg capsule 50 mg PO HSPRN PRN allergies 06/23/14
(Banophen)
docosahexaenoic acid (dha)-epa 120 1 cap PO BIDPRN PRN supplement 06/23/14
mg-180 mg capsule
glucosamine-chondroitin 500 mg-400 1 cap PO BIDPRN PRN supplement 06/23/14
mg capsule
multivitamin with folic acid 400 1 tab PO DAILY Supplement 06/23/14
mcg tablet (Tab-A-Shaunna)
budesonide-formoterol HFA 160 1 puff inhalation R BID 10/24/23
mcg-4.5 mcg/actuation aerosol Lung/Breathing Issues
inhaler
cholecalciferol (vitamin D3) 50 50 mcg PO DAILY Supplement 10/24/23
mcg (2,000 unit) tablet
losartan 50 mg tablet 50 mg PO DAILY Blood Pressure 10/24/23
prochlorperazine maleate 10 mg 10 mg PO TIDPRN PRN nausea 10/24/23
tablet
pantoprazole 40 mg tablet,delayed 40 mg PO BID #60 tabs 10/27/23
release
kgyuoejorq-vocmgyehvzsnw-xpikqyfr 1 tab PO DAILYPRN PRN migraine 11/01/23
50 mg-325 mg-40 mg tablet headache
Review of Systems
-
All other systems: A 12 pt ROS was Negative except as stated above in HPI
Vital Signs
Temp Pulse Resp BP Pulse Ox
97.9 F 78 16 117/49 93
11/02/23 07:00 11/02/23 08:13 11/02/23 08:13 11/02/23 08:39 11/02/23 08:13
Physical Exam
Exam
General: No Apparent Distress and Comfortable
HEENT: Normocephalic and Moist Mucous Membranes
Respiratory: Clear and Non Labored Respirations
Cardiac: Regular Rhythm
GI: Soft and Tender (Mild tenderness in epigastric region without rebound tenderness or involuntary gaurding)
Musculoskeletal: No Edema
Skin: Warm
Neuro: Awake and AO x 3
Psych: Calm
Results
WBC 9.8 10^3/uL (4.8-10.8) 11/01/23 19:33
Hgb 13.3 g/dL (12.0-16.0) D 11/01/23 19:33
Hct 40.6 % (37.0-47.0) 11/01/23 19:33
MCV 100.2 fL (81.0-99.0) H 11/01/23 19:33
Plt Count 277 10^3/uL (130-400) 11/01/23 19:33
Absolute Neuts (auto) 8.4 10^3/uL (1.4-6.5) H 11/01/23 19:33
Sodium 140 mmol/L (135-145) 11/01/23 19:33
Potassium 3.6 mmol/L (3.5-5.1) 11/01/23:33
Chloride 103 mmol/L (98-107) 11/01/23:
Carbon Dioxide 24 mmol/L (22-30) 11/01/23:33
BUN 20 mg/dl (7-17) H 11/01/23:33
Creatinine 0.9 mg/dL (0.6-1.0) 11/01/23:
Calcium 9.5 mg/dl (8.4-10.2) 11/01/23:
Total Bilirubin 0.5 mg/dl (0.2-1.3) 11/01/23:
AST 24 U/L (14-36) 11/01/23:
ALT 13 U/L (0-35) 11/01/23:
Alkaline Phosphatase 79 U/L (38-126) 11/01/23:
Diagnostic Image Results:
UGIS 10/24/2023- Impression:
1. 3 cm in length segment of luminal narrowing and mucosal irregularity in the proximal 2nd portion of the duodenum corresponding to a segment of wall thickening seen on the CT examination performed 10/24/2023. Diagnostic possibilities are (1)
inflammatory wall thickening from peptic ulcer disease or (2) duodenal adenocarcinoma.
2. 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
3. No fluoroscopic evidence for gastric outlet or duodenal obstruction.
4. No fluoroscopic evidence for extravasation of contrast into the peritoneal cavity.
CT Abd/pelvis 10/24/2023- Impression:
1. ACUTE PERFORATED PROXIMAL DUODENAL ULCER.
2. 5.9 cm loculated collection of fluid and air adjacent to the proximal duodenum.
3. Moderate chronic bilateral renal disease.
4. Small calcified granulomas in the spleen.
5. Previous cholecystectomy, hysterectomy, and left inguinal hernia repair.
6. Mild cardiomegaly.
ADDENDUM: The patient is reportedly not tender in the right upper quadrant of the abdomen. There is a history of previous duodenal surgery. The abnormal morphology of the proximal duodenum could be postsurgical in etiology. There is no definitive
evidence for extraluminal collection of air or fluid. There is thickening of the proximal duodenal wall with adjacent fat stranding which could be postprocedural scarring.
Prior GI Procedures:
S/p EGD on 10/26/23: - Normal proximal esophagus and mid esophagus.
- Small, superficial esophageal ulcer with no bleeding
and no stigmata of recent bleeding. Biopsied.
- Non-obstructing and mild Schatzki ring at 43 cms.
- Few, scattered non-bleeding gastric ulcers with a
clean ulcer base (Nikita Class III). Biopsied.
- Otherwise, normal stomach on direct and retroflexion
views. Biopsied to rule out H pylori.
- Large, partially obstructing, cratered duodenal
ulcer with a flat pigmented spot (Nikita Class IIc).
The ulcer was deeply penetrating and approximately 3
cms in size. The ulcer was carefully biopsied to r/o
malignancy.
- Few, scattered non-bleeding duodenal ulcers with a
clean ulcer base (Nikita Class III) in the duodenal
bulb.
- Otherwise, normal first portion of the duodenum and
second portion of the duodenum.
- The examination was otherwise normal.
Assessment / Plan
-
Ms Delgado is an 83 year old female with past medical history of GERD, HTN, HLD, migraines (previous NSAID use and Fioricet), chronic HFpEF, colon polyps, and hx of prior duodenal ulcer (years ago, details unclear) with recent admission (10/23 - 10/26 at
) found to have a large, deeply penetrating and partially obstructive ulcer within the first portion of the duodenum who presented to the ED with recurrent epigastric pain and nausea/vomiting.
#Epigastric Pain #Nausea/Vomiting
#Poor P.O Intake
#Partially Obstructing Duodenal Ulcer
#Few Gastric Ulcers #Esophageal Ulcer
#Hx of NSAIDs
Impression: Patient with recent hospitalization found to have a large, penetrating, partially obstructing duodenal ulcer within the duodenal bulb and extending to the duodenal sweep during recent EGD 10/26/23 (felt to be 2/2 NSAIDs versus malignancy;
path benign) now re-presenting with recurrent epigastric, nausea/vomiting, and abdominal distension concerning for duodenal obstruction. Was previously concerned for recurrent obstructive symptoms given difficulty with passage of standard adult
upper endoscope at time of prior EGD. No other concern for recurrent bleeding as she is without melena and Hgb 13 (previously 10s at discharge on on 10/26). Concern that she is experiencing worsening obstructive symptoms as having difficulty with oral
intake (liquids) despite ongoing PPI therapy resulting in her presentation and would benefit from further imaging with UGIS.
Recommendations:
- Keep NPO
- Await final CT Abd/pelvis, will f/u imaging
- Recommend repeat UGIS given concern for partially obstructing duodenal ulcer
- Continue IV PPI 40 mg BiD
- Discussed with Dr. Sandoval, would not be a candidate for a duodenal stent given the large ulceration
- Recommend general surgery consultation for further evaluation as patient was previously evaluated during her prior hospitalization. Patient wishes to avoid surgery, however given concern for partial obstruction and recurrent symptoms appreciate
evaluation
- IV anti-emetics PRN
- Strict avoidance of all NSAIDs
Discussed with primary internal medicine team.
Thank you for allowing me to participate in the care of this patient. Please do not hesitate to call for any further questions. Inpatient GI team will continue to follow.
Data Reviewed
-
Radiology: Image Personally Visualized and interpreted and Report Reviewed by me
CT Scan: Report Reviewed by me
Old Records: Reviewed
-
-
Thank you for consultation and allowing me to participate in the patient's care. Please call the lamination technician GI physician during the after hours with any questions or concerns.
[2023-11-02 10:48] LABS: Blood Urea Nitrogen 22 mg/dl (7-17); Carbon Dioxide 22 mmol/L (22-30); Chloride 105 mmol/L (98-107); Estimated Creatinine Clearance 40 ml/min; Glucose 85 mg/dl (70-99); Potassium 3.9 mmol/L (3.5-5.1); Sodium 137 mmol/L (135-145); eGFR 55.55
[2023-11-02 11:05] LABS: Hematocrit 31.9 % (37.0-47.0); Hemoglobin 10.7 g/dL (12.0-16.0); Mean Corp Hgb Conc. 33.5 g/dL (33.0-37.0); Mean Corpuscular Hgb 33.4 pg (27.0-31.0); Mean Corpuscular Volume 99.7 fL (81.0-99.0); Red Cell Dist. Width 13.4 % (11.5-14.5); White Blood Cell Count 8.5 10^3/uL (4.8-10.8)
[2023-11-02 11:27] LABS: Mean Platelet Volume 9.1 fL (7.4-10.4); Platelet Count 216 10^3/uL (130-400)
--- NOTE | 2023-11-02 12:30 | CM ---
Patient seen bedside.
Per patient name is pronounced 'Zeach like peach'.
Patient is a RN.
IA completed.
Patient lives with spouse in a 1 story home with no steps.
No assistive devices.
Patient drives.
Patient independent prior to admission.
Patient has not had VN or rehab.
PCP: Dr Fraser
Pharmacy: [facility]
Plan: home no needs, spouse will transport.
[2023-11-02 15:07] VITALS: BP 120/68
[2023-11-02] MEDS: MIRALAX 17 GRAMS PO (17:11)
[2023-11-02 19:31] VITALS: BP 116/58; BP 119/48; BP 131/71; PULSE 105; PULSE 74; PULSE 85
[2023-11-02 23:30] VITALS: BP 138/57
[2023-11-03] MEDS: TYLENOL 650 MG PO ×4 (00:14→22:44)
[2023-11-03 00:20] LABS: Troponin I 0.026 ng/ml
[2023-11-03] MEDS: COMPAZINE 5 MG IV (04:17)
[2023-11-03 05:53] VITALS: BMI 27.9
[2023-11-03 06:53] VITALS: BP 110/43
[2023-11-03] MEDS: COZAAR 50 MG PO (07:37)
[2023-11-03] MEDS: PROTONIX IV 40 MG IV ×2 (07:40→20:08)
[2023-11-03] MEDS: NSS (PRESERVATIVE FREE) 10 ML IV ×2 (07:40→20:09)
[2023-11-03] MEDS: MIRALAX PO ×2 (07:40→07:46)
--- NOTE | 2023-11-03 07:53 | W.PN.GI.CBS2 ---
Addendum entered and electronically signed by Jazmyn Avilez DO 11/03/23 12:17:
The patient was seen and examined by me independently in collaboration with the nurse practitioner.
Past medical history/social history/medications/allergies/family history reviewed.
Lab data and imaging data reviewed.
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
of the duodenum. Discussed findings at length with patient as well as options moving forward. Unfortunately, there are no endoscopic interventions we are able to offer her here to help relieve this partial obstruction (i.e. enteral stent). This
leave surgery. She is not completely obstructed, and therefore, we can proceed with strict dietary modifications, allowing for hopefully, mucosal healing with time. Patient is absolutely adamant she does NOT want surgery and even in a life or
situation, she would not proceed with surgery. Therefore, we discussed proceeding with a pureed diet. Recommend nutrition consult. Outpatient f/u with Dr. Gorman.
GI will sign off, please call with questions.
Original Note:
Today's Communication / Plan
-
s/p UGI with similar finding to EGD with severe PUD with proximal duodenal ulcer with non obstructing stricture similar to 10/23 no obstruction or extravasation
I suspect pain triggered by periodic foods getting stuck in stricturing area
discussed options as tolerating clear diet-- next step pureed diet and discussed blended food with supplement - she states she does not like consistency of pureed and blended foods but also very adamant she would not like surgical intervention even
if life or situation if a perforation occurs.
she is agreeable to try next diet
will get dietary consult for best nutrition for pureed/blended diet
cont PPI BID
- Dr. Gorman Discussed with Dr. Sandoval, would not be a candidate for a duodenal stent given the large ulceration
- IV anti-emetics PRN
- Strict avoidance of all NSAIDs which pt admits to heavy use in past
Assessment / Plan
-
Ms Delgado is an 83 year old female with past medical history of GERD, HTN, HLD, migraines (previous NSAID use and Fioricet), chronic HFpEF, colon polyps, and hx of prior duodenal ulcer (years ago, details unclear) with recent admission (10/23 - 10/26 at
) found to have a large, deeply penetrating and partially obstructive ulcer within the first portion of the duodenum who presented to the ED with recurrent epigastric pain and nausea/vomiting.
#Epigastric Pain #Nausea/Vomiting
#Poor P.O Intake
#Partially Obstructing Duodenal Ulcer
#Few Gastric Ulcers #Esophageal Ulcer
#Hx of NSAIDs
11/02/23 UGI
1. SEVERE PEPTIC ULCER DISEASE in the PROXIMAL DUODENUM with a posteriorly protruding DUODENAL ULCER and a NONOBSTRUCTING PROXIMAL DUODENAL STRICTURE which is similar in appearance to 10/24/2023.
2. No fluoroscopic evidence for duodenal obstruction or extravasation of contrast material into the peritoneal cavity.
Impression: Patient with recent hospitalization found to have a large, penetrating, partially obstructing duodenal ulcer within the duodenal bulb and extending to the duodenal sweep during recent EGD 10/26/23 (felt to be 2/2 NSAIDs versus malignancy;
path benign) now re-presenting with recurrent epigastric, nausea/vomiting, and abdominal distension concerning for duodenal obstruction. Was previously concerned for recurrent obstructive symptoms given difficulty with passage of standard adult
upper endoscope at time of prior EGD. No other concern for recurrent bleeding as she is without melena and Hgb 13 (previously 10s at discharge on on 10/26). Concern that she is experiencing worsening obstructive symptoms as having difficulty with oral
intake (liquids) despite ongoing PPI therapy resulting in her presentation and would benefit from further imaging with UGIS. follow up UGI as noted
Recommendations:
s/p UGI with similar finding to EGD with severe PUD with proximal duodenal ulcer with non obstructing stricture similar to 10/23 no obstruction or extravasation
I suspect pain triggered by periodic foods getting stuck in stricturing area
discussed options as tolerating clear diet-- next step pureed diet and discussed blended food with supplement - she states she does not like consistency of pureed and blended foods but also very adamant she would not like surgical intervention even
if life or situation if a perforation occurs.
she is agreeable to try next diet
will get dietary consult for best nutrition for pureed/blended diet
cont PPI BID
- Dr. Gorman Discussed with Dr. Sandoval, would not be a candidate for a duodenal stent given the large ulceration
- IV anti-emetics PRN
- Strict avoidance of all NSAIDs which pt admits to heavy use in past
Subjective
Subjective
Date of Service: November 03, 2023
abdominal pain improved and tolerating clear diet brown stools
Objective
Data Reviewed
Laboratory Data:
Laboratory Results
Total Bilirubin 0.5 mg/dl (0.2-1.3) 11/01/23 19:33
AST 24 U/L (14-36) 11/01/23 19:33
ALT 13 U/L (0-35) 11/01/23 19:33
Alkaline Phosphatase 79 U/L (38-126) 11/01/23 19:33
Vital Signs and I&O:
Vital Signs
Temp Pulse Resp BP Pulse Ox
98.8 F 75 17 110/43 97
11/03/23 06:53 11/03/23 06:53 11/03/23 06:53 11/03/23 07:37 11/03/23 06:53
I&O
11/02/23 11/03/23 11/04/23
06:59 06:59 06:59
Output Total 20 / 20
Balance -20 / -20
Physical Exam
Physical Exam
HEENT: Anicteric and Moist mucous membranes
Cardiology: Normal Sinus Rhythm
Pulmonary: Clear
GI: Soft, Non Distended and Non Tender
Extremities: No Edema
Neuro: Non Focal
[2023-11-03] MEDS: SYMBICORT 160/4.5 MCG INHALER 1 PUFF INH ×2 (07:54→20:28)
[2023-11-03 07:57] LABS: Hemoglobin 9.5 g/dL (12.0-16.0); Mean Corp Hgb Conc. 32.8 g/dL (33.0-37.0); Mean Corpuscular Hgb 33.1 pg (27.0-31.0); Mean Platelet Volume 10.6 fL (7.4-10.4); Platelet Count 109 10^3/uL (130-400); Red Blood Cell Count 2.87 10^6/uL (4.20-5.40); Red Cell Dist. Width 13.4 % (11.5-14.5)
[2023-11-03 08:17] LABS: ALT (SGPT) < 10 U/L (0-35); AST (SGOT) 17 U/L (14-36); Albumin 2.8 g/dl (3.5-5.0); Alkaline Phosphatase 61 U/L (38-126); Blood Urea Nitrogen 19 mg/dl (7-17); Calcium 8.6 mg/dl (8.4-10.2); Carbon Dioxide 24 mmol/L (22-30); Chloride 107 mmol/L (98-107); Estimated Creatinine Clearance 44 ml/min; Glucose 77 mg/dl (70-99); Potassium 3.6 mmol/L (3.5-5.1); Sodium 139 mmol/L (135-145); Total Bilirubin 0.5 mg/dl (0.2-1.3); Total Protein 4.5 g/dl (6.3-8.2); eGFR > 60.00
--- NOTE | 2023-11-03 08:51 | W.PN.HOSP.TC ---
Today's Communication/Plan
-
Start diet today. Continue PPI. Monitor hemoglobin
Assessment / Plan
Assessment / Plan
Physical exam:
General: Acutely ill.
HEENT: Normocephalic, Atraumatic and Moist Mucous Membranes
Respiratory: Clear to Auscultation; Negative Wheezes, Rales or Rhonchi
Cardiac: Regular Rhythm and S1/S2
GI: Soft, tender and Nondistended
Musculoskeletal: No Clubbing, No Cyanosis and No Edema
Neuro: Awake, Alert and Oriented
Psych: Calm
A/P:
Duodenal Ulcer
Abdominal Pain, N/V
- Admitted for further evaluation and treatment.
- Continue supportive care with pain control, antiemetics. Stop IV fluids.
- Continue IV PPI BID.
- GI re-evaluation--> plan for upper GI series. GI was recommended surgery consulted initially but I had GI and surgery discussed among themselves and ultimately decided no surgery consult for now. Upper GI series demonstrated duodenal ulcers and
stricture but pretty much about the same as before and no evidence of clear obstruction. GI discussed with patient about the possibility of surgery intervention if needed and patient does not want that. I discussed with patient again and she
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 GI advancing diet and monitor symptoms for now.
- Follow for any new / recurrent symptoms.
-GI also recommends MiraLAX for overflow incontinence/loose stools
- CT scan repeated in the ED and shows no evidence of acute perforation, free air, etc associated with duodenal ulceration.
-Discussed with at bedside yesterday
Benign Hypertension
- Continue losartan with holding parameters.
Asthma without Acute Exacerbation
- Stable. Continue inhaled medications.
Chronic HFpEF
- Stable. No evidence of volume overload on exam
- Patient is not maintained on chronic diuretic regimen.
- Follow I/Os, daily weights, etc.
Migraine Headaches
- Stable. Supportive care if needed
- No NSAIDs given GI ulcerations.
DVT Prophylaxis: SCDs
Code Status: DNR
Anticipated Discharge: 24 - 48 hours
Subjective/Interval History
-
Date of Service: November 03, 2023
Patient feels better today. No abdominal pain nausea or vomiting. She does have loose stools
Objective Data
-
Labs:
Laboratory Results
11/03/23
06:37
WBC 6.0
Hgb 9.5 L
Hct 29.0 L
Plt Count 109 L D
Sodium 139
Potassium 3.6
Chloride 107
Carbon Dioxide 24
BUN 19 H
Creatinine 0.9
Glucose 77
Calcium 8.6
Total Bilirubin 0.5
AST 17
ALT < 10
Alkaline Phosphatase 61
Vital Signs:
Vital Signs
Temp Pulse Resp BP Pulse Ox
98.8 F 65 16 110/43 96
11/03/23 06:53 11/03/23 08:06 11/03/23 08:06 11/03/23 07:37 11/03/23 08:06
I&O
11/02/23 11/03/23 11/04/23
06:59 06:59 06:59
Output Total 20 / 20
Balance -20 / -20
[2023-11-03] MEDS: LR 1000 IV (09:58)
[2023-11-03 11:22] VITALS: BMI 27.9
[2023-11-03 15:16] VITALS: BP 133/75
[2023-11-03 19:40] VITALS: BP 129/63; BP 133/65; BP 147/67; PULSE 82; PULSE 83; PULSE 90
[2023-11-04] MEDS: COMPAZINE 5 MG IV (00:17)
[2023-11-04] MEDS: FIORICET 1 TAB PO ×2 (02:17→11:07)
[2023-11-04 07:38] VITALS: BP 154/56
[2023-11-04 07:45] LABS: Hematocrit 29.3 % (37.0-47.0); Hemoglobin 9.3 g/dL (12.0-16.0); Mean Corp Hgb Conc. 31.7 g/dL (33.0-37.0); Mean Corpuscular Hgb 32.3 pg (27.0-31.0); Mean Corpuscular Volume 101.7 fL (81.0-99.0); Mean Platelet Volume 9.3 fL (7.4-10.4); Platelet Count 218 10^3/uL (130-400); Red Blood Cell Count 2.88 10^6/uL (4.20-5.40); Red Cell Dist. Width 13.5 % (11.5-14.5); White Blood Cell Count 5.5 10^3/uL (4.8-10.8)
[2023-11-04] MEDS: SYMBICORT 160/4.5 MCG INHALER 1 PUFF INH (07:59)
[2023-11-04 08:09] LABS: Blood Urea Nitrogen 13 mg/dl (7-17); Calcium 8.8 mg/dl (8.4-10.2); Carbon Dioxide 27 mmol/L (22-30); Chloride 106 mmol/L (98-107); Estimated Creatinine Clearance 50 ml/min; Glucose 83 mg/dl (70-99); Potassium 3.5 mmol/L (3.5-5.1); Sodium 142 mmol/L (135-145); eGFR > 60.00
[2023-11-04] MEDS: TYLENOL 650 MG PO (09:45)
[2023-11-04] MEDS: COZAAR 50 MG PO (09:47)
[2023-11-04] MEDS: NSS (PRESERVATIVE FREE) 10 ML IV (09:48)
[2023-11-04] MEDS: MIRALAX PO (09:48)
[2023-11-04] MEDS: PROTONIX IV 40 MG IV (09:49)
--- NOTE | 2023-11-04 09:52 | W.PN.HOSP.TC ---
Today's Communication/Plan
-
Discharge planning today.
Assessment / Plan
Assessment / Plan
Physical exam:
General: No acute distress
HEENT: Normocephalic, Atraumatic and Moist Mucous Membranes
Respiratory: Clear to Auscultation; Negative Wheezes, Rales or Rhonchi
Cardiac: Regular Rhythm and S1/S2
GI: Soft, tender and Nondistended
Musculoskeletal: No Clubbing, No Cyanosis and No Edema
Neuro: Awake, Alert and Oriented
Psych: Calm
A/P:
Duodenal Ulcer
Abdominal Pain, N/V
- Admitted for further evaluation and treatment.
- Continue supportive care with pain control, antiemetics. Stop IV fluids.
- Continue IV PPI BID and now changed to oral--> I sent a new prescription to her pharmacy today for her PPI.
- GI re-evaluation--> plan for upper GI series. GI was recommended surgery consulted initially but I had GI and surgery discussed among themselves and ultimately decided no surgery consult for now. Upper GI series demonstrated duodenal ulcers and
stricture but pretty much about the same as before and no evidence of clear obstruction. GI discussed with patient about the possibility of surgery intervention if needed and patient does not want that. I discussed with patient again and she
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 GI advancing diet and monitor symptoms for now.
- Follow for any new / recurrent symptoms.
-GI also recommends MiraLAX for overflow incontinence/loose stools
- CT scan repeated in the ED and shows no evidence of acute perforation, free air, etc associated with duodenal ulceration.
-Discussed with at bedside today.
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
-She is medically ready for discharge today
Benign Hypertension
- Continue losartan with holding parameters.
Asthma without Acute Exacerbation
- Stable. Continue inhaled medications.
Chronic HFpEF
- Stable. No evidence of volume overload on exam
- Patient is not maintained on chronic diuretic regimen.
- Follow I/Os, daily weights, etc.
Migraine Headaches
- Stable. Supportive care if needed
- No NSAIDs given GI ulcerations.
DVT Prophylaxis: SCDs
Code Status: DNR
Anticipated Discharge: Today
Subjective/Interval History
-
Date of Service: November 04, 2023
Patient tolerating current pur�ed diet. No abdominal pain nausea or vomiting.
Objective Data
-
Labs:
Laboratory Results
11/04/23
05:41
WBC 5.5
Hgb 9.3 L
Hct 29.3 L
Plt Count 218 D
Sodium 142
Potassium 3.5
Chloride 106
Carbon Dioxide 27
BUN 13
Creatinine 0.8
Glucose 83
Calcium 8.8
Vital Signs:
Vital Signs
Temp Pulse Resp BP Pulse Ox
98.6 F 70 16 154/56 99
11/04/23 07:38 11/04/23 08:00 11/04/23 08:00 11/04/23 07:38 11/04/23 08:00
I&O
11/03/23 11/04/23 11/05/23
06:59 06:59 06:59
Intake Total 300 / 300
Output Total 20 / 20
Balance -20 / -20 300 / 300
[2023-11-04 11:29] VITALS: BP 140/55; PULSE 78; O2SAT 99
--- NOTE | 2023-11-04 11:56 | W.DCSUMMARY ---
Discharge Summary
Discharge Data
Date of Admission: 11/02/23
Date of Discharge: 11/04/23
-
Pending Results: No
Hospital Course
Patient 83 years old female with history of hypertension, hyperlipidemia, migraines, GERD, chronic CHF diastolic dysfunction, history of prior duodenal ulcer and recent large duodenal ulcer who presented to the hospital for chronic abdominal pain
nausea and vomiting. Patient had an EGD on 10/25 found to have a large deeply penetrating duodenal ulcer and multiple scattered small gastric ulcers as well as small linear esophageal ulcers in the distal esophagus and was sent home with PPI.
Patient came back developing recurrent epigastric abdominal pain associated with nausea and vomiting and unable to tolerate solid food. This time she was kept n.p.o. and started on IV fluids and PPI IV. GI was consulted. GI did an upper GI series
and it shows evidence of duodenal stricture but pretty much about the same as before. GI discussed with patient that her symptoms are related to this stricture and recommended to continue PPI and modified diet and if worsening she might require
surgery. Patient adamant does not want surgery. She is also hesitant on dietary modification. She is tolerating diet now and symptomatically much improved. Her white blood cell count and hemoglobin at baseline. GI cleared her for discharge.
She will be discharged in stable condition today
Discharge duration: 35 minutes
Discharge Plan
-
Patient Disposition: Home (Routine Discharge)
Discharge Diagnosis/Procedures: Abdominal pain nausea and vomiting. Duodenal ulcer. Duodenal stricture.
Diet: Other diet
Additional Diets: pureed and blended foods
Activity: As tolerated
Blood Work: Please PCP to order CBC, BMP within 1 week
Referrals:
Juan M Murphy MD [Family Provider] - in less than 1 week
Jazmyn Avilez DO [Active] - in one to two weeks
Prescriptions:
Continued
diphenhydramine HCl [Banophen] 50 MG capsule
50 mg PO HSPRN PRN (Reason: allergies)
calcium carbonate [Oyster Shell Calcium 500] 500 MG tablet
500 mg PO DAILY
albuterol sulfate 1 PUFF HFA aerosol inhaler
2 puff inhalation R Q4HPRN PRN (Reason: shortness of breath)
glucosamine-chondroitin 1 CAP capsule
1 cap PO BIDPRN PRN (Reason: supplement)
docosahexaenoic acid-epa 1 CAP capsule
1 cap PO BIDPRN PRN (Reason: supplement)
multivitamin with folic acid [Tab-A-Shaunna] 1 TABLET tablet
1 tab PO DAILY
losartan 50 mg tablet
50 mg PO DAILY
prochlorperazine maleate 10 mg tablet
10 mg PO TIDPRN PRN (Reason: nausea)
cholecalciferol (vitamin D3) 50 mcg (2,000 unit) Tablet
50 mcg PO DAILY
budesonide-formoterol 160-4.5 mcg/actuation HFA aerosol inhaler
1 puff INHALATION R BID
dzzfhydumb-xvmkfwovaefjr-puoq 50-325-40 mg tablet
1 tab PO DAILYPRN PRN (Reason: migraine headache)
pantoprazole 40 mg Tablet,Delayed Release (Dr/Ec)
40 mg PO BID Qty: 60 0RF
Discharge Orders:
Discharge Patient (As Directed); Ordered 11/04/23
Ordered By: George Goodman
Discharge Date and Time
Discharge Date/Time: 11/04/23 14:28
Print Language: GABONESE
--- NOTE | 2023-11-04 12:12 | CM ---
Patient seen bedside.
Patient for d/c home today.
IMM completed.
spouse will transport.
Plan: home no needs.
--- NOTE | 2023-11-04 14:52 | PN.CDI ---
CDI
- -
CDI:
Physician Documentation Request
Admit Date: 11/02/23 03:39
Dear Doctor Raghav,
Patient admitted with duodenal ulcer.
11/02 GI note, '11/02/23 UGI ...SEVERE PEPTIC ULCER DISEASE in the PROXIMAL DUODENUM with a posteriorly protruding DUODENAL ULCER.....'
Please clarify which of the following accurately represents the acuity of the duodenal ulcer:
Acute
Chronic
Other
Use of terms such as suspected, likely, concern for, or probable (associated with a specific diagnosis that is being evaluated, monitored, or treated as if it exists) are acceptable and can be coded in the inpatient setting, when documented at the
time of discharge.
Thank you,
Nikole GAMEZ,RN,CCDS
CDI Specialist
Available via [place] text
Please use your independent medical judgment in providing your response.
--- NOTE | 2023-11-09 11:39 | W.PN.UPDATE ---
Update Note
Progress Note Update
CDI Query
Acute Duodenal ulcer
== END 2023-11-04 14:28 | disposition home or self-care (01) | DRG 384 ==
LOC: 4 WEST ACU 03:39
PROVIDERS: Nurse Practitioner; Nurse Practitioner Family; ADMITTING PHYSICIAN Hospitalist; ATTENDING PHYSICIAN Hospitalist; EMERGENCY PHYSICIAN Emergency Medicine; FAMILY PHYSICIAN Family Medicine; OTHER PHYSICIAN Student in an Organized Health Care Education/Training Program
DX: K26.3 Acute duodenal ulcer without hemorrhage or perforation (principal); I50.32 Chronic diastolic (congestive) heart failure; K31.5 Obstruction of duodenum; K57.10 Diverticulosis of small intestine without perforation or abscess without bleeding; Z66 Do not resuscitate; K25.9 Gastric ulcer, unspecified as acute or chronic, without hemorrhage or perforation; J45.909 Unspecified asthma, uncomplicated; I11.0 Hypertensive heart disease with heart failure; K21.9 Gastro-esophageal reflux disease without esophagitis; G43.909 Migraine, unspecified, not intractable, without status migrainosus; E78.5 Hyperlipidemia, unspecified; R79.89 Other specified abnormal findings of blood chemistry; Z91.041 Radiographic dye allergy status; Z90.49 Acquired absence of other specified parts of digestive tract; Z88.5 Allergy status to narcotic agent; Z88.1 Allergy status to other antibiotic agents; Z88.0 Allergy status to penicillin
CPT/HCPCS: 74018; 74176; 74240; 74248; 80048; 80053; 84484; 85025; 85027; 93005; 94640; 97161; 99285

== ENCOUNTER 2024-07-02 06:42 | Inpatient (IN) | payer MEDICARE, OTHER, SELFPAY ==
[2024-06-29 19:49] VITALS: BP 158/98
[2024-06-29 20:08] LABS: % Basophils 0.8 % (0-2); % Immature Granulocytes 0.2 % (0-0.5); % Lymphocytes 19.5 % (20.5-51.1); % Monocytes 5.3 % (1.7-9.3); % Neutrophils 72.2 % (42.2-75.2); Absolute Basophils 0.1 10^3/uL (0-0.2); Absolute Eosinophils 0.1 10^3/uL (0-0.7); Absolute Lymphocytes 1.2 10^3/uL (1.2-3.4); Absolute Monocytes 0.3 10^3/uL (0.1-0.6); Absolute Neutrophils 4.4 10^3/uL (1.4-6.5); Hematocrit 32.9 % (37.0-47.0); Hemoglobin 11.3 g/dL (12.0-16.0); Mean Corp Hgb Conc. 34.3 g/dL (33.0-37.0); Mean Corpuscular Hgb 33.4 pg (27.0-31.0); Mean Corpuscular Volume 97.3 fL (81.0-99.0); Mean Platelet Volume 8.5 fL (7.4-10.4); Nucleated Red Blood Cells % 0 %; Platelet Count 355 10^3/uL (130-400); Red Blood Cell Count 3.38 10^6/uL (4.20-5.40); Red Cell Dist. Width 13.6 % (11.5-14.5); White Blood Cell Count 6.1 10^3/uL (4.8-10.8)
[2024-06-29 20:12] LABS: COVID-19 Antigen Negative (Negative)
[2024-06-29 20:23] LABS: ALT (SGPT) 11 U/L (0-35); AST (SGOT) 17 U/L (14-36); Albumin 4.7 g/dl (3.5-5.0); Alkaline Phosphatase 81 U/L (38-126); Blood Urea Nitrogen 14 mg/dl (7-17); Calcium 9.9 mg/dl (8.4-10.2); Carbon Dioxide 22 mmol/L (22-30); Chloride 107 mmol/L (98-107); Glucose 124 mg/dl (70-99); Potassium 3.9 mmol/L (3.5-5.1); Sodium 140 mmol/L (135-145); Total Bilirubin 0.6 mg/dl (0.2-1.3); eGFR > 60.00
[2024-06-29 20:24] LABS: Lipase 183 U/L (23-300)
[2024-06-29 20:57] VITALS: BP 182/68
[2024-06-29 21:00] VITALS: BP 182/68
--- NOTE | 2024-06-29 21:09 | ED.GENMED ---
History of Present Illness
General
Chief Complaint: Abdominal Symptoms
Source: patient
Exam Limitations: none
Time Seen by Provider: 06/29/24 20:38
History of Present Illness
History of Present Illness:
83yoF with a history of hypertension, hyperlipidemia, peptic ulcer disease, and migraines presenting for evaluation of generalized weakness. Symptoms began a week ago with diarrhea and nausea. Those symptoms were on and off and she started to
experience fatigue and diffuse body pains a few days ago. She reports she has pain everywhere from her head to her toes. She currently reports a headache although does have a history of migraines. She also is having generalized abdominal pain and
early satiety. She is having dry heaves but has not vomited. Diarrhea has resolved. She denies any fevers, chest pain, shortness of breath. She was hospitalized in October 2023 for a duodenal ulcer and stricture which was managed
non-operatively. Her current pain feels different. No recent travel or sick contacts.
Past History
Past History
ED Past Medical History: Asthma, HTN and Other (Migraines)
ED Past Surgical History: Orthopedic and Other (Hernia)
Social History
Tobacco: Non-smoker
Personal:
Living: with family
Phy Exam
Physical Exam
Physical Exam:
Appears uncomfortable, non-toxic
General Physical Exam
General Presentation: no apparent distress
General Skin: warm and dry
General Habitus: normal and elderly
General Mental: alert
ENT Exam
ENT Exam: normocephalic
Eye Exam
Eye Exam: PERRL
Cardiovascular Exam
Cardiovascular Exam: regular rate/rhythm
Pulmonary Exam
Pulmonary Exam: lungs clear, no respiratory distress, no rales, no crackles, no rhonchi and no wheezing
Gastrointestinal Exam
Gastrointestinal Exam: soft, non distended and other (+Mild generalized tenderness. Abdomen soft, non-distended.)
Neurological Exam
Neurological Exam: alert
Brett Coma Scale
Eye Opening: Spontaneous
Verbal Response: Oriented
Motor Response: Obeys Commands
GCS Total Score: 15
Skin Exam
Skin Exam: normal color and warm/dry
Psychiatric Exam
Psychiatric Exam: normal mood/affect
Course
Orders/Labs/Results
Orders:
Orders
06/29/24 20:01
COVID-19 Antigen Urgent
Source: Nasal Swab
Complete Blood Count/With Diff Urgent
Comprehensive Metabolic Panel Urgent
Creatine Phosphokinase Urgent
Comment: ADDON
Lipase Urgent
Magnesium Urgent
Comment: ADDON
Influenza A+B Rapid Molecular Urgent
AISHWARYA Source: Nasal Swab
Specimen Description:
06/29/24 21:00
0.9% Sodium Chloride 500 ml [Nss] 500 ml IV BOLUS
Iohexol [Omnipaque] See Protocol PO NOW STA
06/29/24 21:01
Add On- LAB Urgent
Tests Added?: CK, magnesium
Electrocardiogram (*1) Urgent
Reason for Study: Fatigue / Weakness
CT Abd/pel (oral only)-DH Only Urgent
Comment:
Reason For Exam: generalized abd pain
CT Head W/o Iv Contrast Urgent
Comment:
Reason For Exam: acute headache
EKG- Treatment ONCE
CR Chest - 2 Views Urgent
Reason For Exam: weakness
06/29/24 21:09
Lactate Level [Lactic Acid] Urgent
Troponin I Urgent
Urinalysis Reflex To Culture Urgent
Date Specimen was Collected: 06/29/24
Time Specimen was Collected: 21:03
Urine Microscopic Reflex Cult Urgent
Urine Culture Urgent
AISHWARYA Source: U
Specimen Description:
Date Specimen was Collected: 06/29/24
Time Specimen was Collected: 21:03
06/29/24 22:34
Acetaminophen [Tylenol] 1,000 mg PO NOW STA
06/29/24 22:35
Butalb/Acetaminophen/Caffeine [Fioricet] 1 tab PO NOW STA
06/29/24 23:04
Butalb/Acetaminophen/Caffeine [Fioricet] 1 tab PO NOW STA
06/30/24 00:48
Fosfomycin [Monurol] 3 gm PO ONCE ONE
06/30/24 00:52
Ondansetron Injectable [Zofran] 4 mg IV NOW STA
06/30/24 02:13
Admit/Transfer Patient As Directed
Co-Sign Provider:
Level of Care: Observation services
Assign to:: Medical/Surgical
Physician / Group: Mya
Diagnosis: UTI
PRN Pain Medication Management As Directed
May give lesser potent ordered pain med per pt: Yes
preference::
Protocol:: Medication orders for pain may be administered in a
manner that supports deferring to patient preference
when the pt is:
- Requesting an ordered lesser potent pain medication.
Least to most potent pain medications are defined
as: acetaminophen < NSAID < tramadol < opioids
(morphine, oxycodone, hydromorphone).
- Requesting a lesser dose of the same medication IF
ORDERED.
- Requesting a less intrusive route of administration
if both routes are prescribed by the provider (PO <
IV).
06/30/24 02:14
Code Status As Directed
Resuscitation Status: Do not resuscitate
Reached after discussion with pt or family/Healthcare POA: Yes
06/30/24 02:15
DNR Bracelet Application ONCE
06/30/24 02:40
Albuterol [ProAIR HFA INHALER] 2 puff INH R Q4HPRN PRN
Butalb/Acetaminophen/Caffeine [Fioricet] 1 tab PO DAILYPRN PRN
Diphenhydramine [Benadryl] 50 mg PO HSPRN PRN
Mag Hydrox/Al Hydrox/Simeth [Maalox] 30 ml PO Q6HPRN PRN
Ondansetron Injectable [Zofran] 4 mg IV Q6HPRN PRN
06/30/24 02:40
Activity As Directed
Activity Level: With Assistance
Hemetest Stools As Directed
Vital Signs As Directed
Frequency: Per unit guidelines
DX Deep Vein Thrombosis Video Routine
06/30/24 03:00
Dextrose 5%/0.9%Sodchl 1000 ml [D5/0.9% Sodium Chloride] 1,000 ml IV 75 mls/hr
06/30/24 04:00
Acetaminophen [Tylenol] 650 mg PO Q4HWA
06/30/24 Breakfast
Clear Liquid
At Your Request: Full Participation
Basic Metabolic Panel IN AM
Complete Blood Count/No Diff IN AM
06/30/24 08:00
Famotidine [Pepcid] 20 mg PO DAILY
Heparin 5,000 units SC Q12
Losartan [Cozaar] 50 mg PO DAILY
Pantoprazole [Protonix IV] 40 mg IV BID
Abnormal Lab Results
06/29/24 06/29/24
20:01 21:09
RBC 3.38 L 10^6/uL
(4.20-5.40)
Hgb 11.3 L g/dL
(12.0-16.0)
Hct 32.9 L %
(37.0-47.0)
MCH 33.4 H pg
(27.0-31.0)
Lymphocytes % 19.5 L %
(20.5-51.1)
Glucose 124 H mg/dl
(70-99)
Magnesium 1.5 L mg/dl
(1.6-2.3)
Urine Ketones 2+ A
(Negative)
Ur Occult Blood Reflex 2+ A
(Negative)
Urine Nitrite (Reflex) Positive A
(Negative)
Leukocyte Esterase Rfl 3+ A
(Negative)
Urine WBC (Reflex) 50-60 A /HPF
(0-5)
Urine Bacteria (Reflex) Many A
(Negative)
Urine Albumin (Reflex) 2+ A
(Neg - Trace)
06/29/24 20:01
06/29/24 20:01
Vital Signs
Initial and Last Documented VS:
Initial Vital Signs
Temp Pulse Resp BP Pulse Ox
97.7 F 73 16 158/98 99
06/29/24 19:49 06/29/24 19:49 06/29/24 19:49 06/29/24 19:49 06/29/24 19:49
Last Documented Vital Signs
Temp Pulse Resp BP Pulse Ox
97.7 F 76 18 161/72 97
06/29/24 19:49 06/30/24 01:00 06/30/24 01:00 06/30/24 02:14 06/30/24 01:00
MDM/Problems Addressed
Differential Diagnosis Includes:
83yoF here with generalized weakness, fatigue, nausea, dry heaves. Also c/o generalized body pains and MARY. She is mildly hypertensive with otherwise stable vital signs. She is nontoxic-appearing. There is generalized abdominal tenderness on exam
without signs of peritonitis. Differential diagnosis includes but is not limited to: Viral illness, dehydration, small bowel obstruction, gastritis
Initial ED plan: Abdominal labs obtained in triage. Labs overall unremarkable including normal white count, LFTs, and renal function. COVID/flu swab negative. Will check lactate, troponin/EKG, CXR, CT head, and CT abdomen. IV fluid bolus.
*EKG
Interpreted by ED Provider?: Yes
EKG Intrepretation Date: 06/29/24
Heart Rate: 65
Rate: normal
Rhythm: sinus
[place]: normal axis
Interval: normal interval
QRS Pattern: normal QRS
Ischemia: no ischemia
*Critical Care Note
Total Time (30-74mins, 75-104mins- exclusive of procedures): Not Applicable
Update Note
Update Note:
Lactate within normal limits. EKG shows normal sinus rhythm without ischemic changes and troponin normal. UA is nitrite positive with 50-60 WBCs consistent with infection. Imaging negative for acute findings. Patient has multiple antibiotic
allergies and is also ordered to cover for UTI. Patient is dry heaving on reassessment and states she feels too weak to go home. Will admit for further evaluation and management.
ED Attending Note
-
Portions of this chart may have been created with voice recognition software.� Occasional wrong word or��sound alike� substitutions may have occurred due to the inherent limitations of voice recognition software.
Discharge Plan
Departure
Patient Disposition: Admit
Date of Disposition: 06/30/24
Time of Disposition: 01:32
Presentation/result/management discussed w/ accepting MD/DO: Hospitalist
Discharge Problem:
Nausea, Urinary tract infection, Generalized weakness
Interventions
Interventions:
*Risk Screen - Suicide Last Done: 06/29/24 19:50
*General Assessment Last Done: 06/29/24 20:51
*Neglect/Abuse Screening Last Done: 06/29/24 19:50
*ED- Fall Risk Assessment Last Done: 06/29/24 20:52
*ED COVID-19 Vaccine History Last Done: 06/29/24 20:52
ON-Egbyld-Trfylvokwx Assessment Last Done: 06/29/24 21:34
[2024-06-29 21:23] LABS: Urine Albumin 2+ (Neg - Trace); Urine Bilirubin Negative (Negative); Urine Character Slightly Cloudy (Clear); Urine Color Yellow; Urine Glucose Negative (Negative); Urine Ketone 2+ (Negative); Urine Leukocyte 3+ (Negative); Urine Nitrite Positive (Negative); Urine Occult Blood 2+ (Negative); Urine Specific Gravity 1.025 (<1.030); Urine Urobilinogen Negative (Neg - 1+)
[2024-06-29] MEDS: OMNIPAQUE 50 ML PO (21:29)
[2024-06-29] MEDS: NSS 500 IV (21:30)
[2024-06-29 21:32] LABS: Creatine Phosphokinase 30 U/L (30-135); Magnesium 1.5 mg/dl (1.6-2.3)
[2024-06-29 21:32] LABS: Lactic Acid 1.2 mmol/L (0.7-2.0)
[2024-06-29 21:33] VITALS: BMI 27.4
[2024-06-29 21:35] LABS: Urine Squamous Cell 0-2 /LPF (Few)
[2024-06-29 21:36] LABS: Urine Bacteria Many (Negative); Urine Red Blood Cell 0-2 /HPF (0-2); Urine White Cell 50-60 /HPF (0-5)
[2024-06-29 21:45] LABS: Troponin I < 0.012 ng/ml
[2024-06-29 22:00] VITALS: BP 172/70
[2024-06-29] MEDS: FIORICET 1 TAB PO ×2 (22:42→23:08)
[2024-06-29 23:00] VITALS: BP 178/89
[2024-06-30] VITALS (12 sets, daily range): BP systolic 109–174; BP diastolic 49–78; PULSE 70; O2SAT 98; BMI 26.4
[2024-06-30] MEDS: MONUROL 3 GM PO (01:16)
[2024-06-30] MEDS: ZOFRAN 4 MG IV (01:16)
--- NOTE | 2024-06-30 01:57 | HPS.HSE ---
Family Physician
-
Family Physician: NOT KNOW UNKNOWN - PT DOES
Chief Complaint
-
Intact intractable nausea and a generalized discomfort
History of Present Illness
This is an 83-year-old who has a past medical history of gastric/duodenal ulcer, duodenal stricture, CHF with preserved EF, hypertension and hyperlipidemia who presents to the emergency department with 1 day of intractable nausea/dry heaves,
weakness and generalized aches and pains.
Patient reported that she started having watery diarrhea about 1 week ago. At same time she developed nausea and vomiting consistent with acute gastroenteritis. She reported that about 2 days ago the symptoms appeared to improve and she was
feeling better. However within the last 24 hours she developed intractable nausea and dry heaves without bringing up anything. She denied having any bilious or bloody emesis recently. Patient denied having black stool. She denied any melena or
hematochezia. She currently denies abdominal pain but generally reports diffuse pain and is unable to specify further. She denies any abdominal bloating. She denies pain radiating to the back. When asked she simply states 'I just do not feel
good.' However she is unable to report any specific flank pain. She is not aware of any urinary tract symptoms.
She has not been tolerating p.o. and specifically today she had very minimal p.o. intake. She had limited energy to perform usual ADLs.
On arrival in the emergency department she had a temp of 97.7, blood pressure was 178/89 and a pulse rate of 70 she was satting 96% on room air. CBC was unremarkable. Electrolytes BUN and creatinine were normal. LFTs, lipase were normal. A UA
was markedly positive with positive nitrite leukocyte esterase WBCs and bacteria.
She had a noncontrast CT of the abdomen/pelvis (no oral IV contrast) which showed no acute findings but in addition to lack of contrast also degraded by small motion artifact.
CT of the head is negative.
Medical History
Past Medical History
Past Medical History: Reports Other
Additional Past Medical History:
Essential hypertension
GERD
Duodenal Ulcer
Asthma
Chronic HFpEF
HLD
Migraines
Past Surgical History: Reports Other
Additional Past Surgical History:
Appendectomy
Cholecystectomy
ABIMAEL
Hernia Repair
Social History
Tobacco: Non-smoker
Alcohol: None
Drug: None
Family History
Family History: Not pertinent
Allergies / Home Medications
Allergies reflects when Allergies were last updated in [facility].
Home Medications with original date entered in [facility]
Allergy/Medication List:
Allergies
Allergy/AdvReac Type Severity Reaction Status Date / Time
cephalexin monohydrate Allergy Anaphylaxis Verified 11/01/23 19:32
[From Keflex]
ciprofloxacin [From Cipro] Allergy Nausea / Verified 11/01/23 19:32
Vomiting /
Headache
clindamycin Allergy Anaphylaxis Verified 11/01/23 19:32
codeine Allergy Nausea / Verified 11/01/23 19:32
Vomiting /
Headache
erythromycin base Allergy Anaphylaxis Verified 11/01/23 19:32
[Erythromycin Base]
gentamicin [Gentamicin] Allergy Anaphylaxis Verified 11/01/23 19:32
iodine Allergy Vomiting Verified 11/01/23 23:13
levofloxacin [From Levaquin] Allergy Anaphylaxis Verified 11/01/23 19:32
Penicillins Allergy Anaphylaxis Verified 11/01/23 19:32
Tetracyclines Allergy Anaphylaxis Verified 11/01/23 19:32
vancomycin Allergy Anaphylaxis Verified 11/01/23 19:32
morphine AdvReac Shortness Verified 11/01/23 19:32
of Breath
mycin Allergy Anaphylaxis Uncoded 11/01/23 19:32
Home Medications
albuterol sulfate 90 mcg/actuation aerosol inhaler 2 puff inhalation R Q4HPRN PRN shortness of breath 06/23/14
calcium carbonate (Oyster Shell Calcium 500) 500 mg PO DAILY Supplement 06/23/14
diphenhydramine HCl 50 mg capsule (Banophen) 50 mg PO HSPRN PRN allergies 06/23/14
docosahexaenoic acid (dha)-epa 120 mg-180 mg capsule 1 cap PO BIDPRN PRN supplement 06/23/14
glucosamine-chondroitin 500 mg-400 mg capsule 1 cap PO BIDPRN PRN supplement 06/23/14
multivitamin with folic acid 400 mcg tablet (Tab-A-Shaunna) 1 tab PO DAILY Supplement 06/23/14
budesonide-formoterol HFA 160 mcg-4.5 mcg/actuation aerosol inhaler 1 puff inhalation R BID Lung/Breathing Issues 10/24/23
cholecalciferol (vitamin D3) 50 mcg (2,000 unit) tablet 50 mcg PO DAILY Supplement 10/24/23
losartan 50 mg tablet 50 mg PO DAILY Blood Pressure 10/24/23
prochlorperazine maleate 10 mg tablet 10 mg PO TIDPRN PRN nausea 10/24/23
pantoprazole 40 mg tablet,delayed release 40 mg PO BID #60 tabs 10/27/23
wwkofieyio-pvrkamxexhzyp-nihwdojj 50 mg-325 mg-40 mg tablet 1 tab PO DAILYPRN PRN migraine headache 11/01/23
Review of Systems
-
History Source: Patient and Family
Constitutional: Reports Fatigue and Chills
EENT: Reports No Symptoms
Respiratory: Reports No Symptoms
Cardiac: Reports No Symptoms
Abdomen/GI: Reports Nausea and Anorexia
: Reports No Symptoms
Musculoskeletal: Reports No Symptoms
Skin: Reports No Symptoms
Neurological: Reports No Symptoms
Endocrine: Reports No Symptoms
Hematologic/Lymphatic: Reports No Symptoms
Psych: Reports No Symptoms
Physical Exam
Vital Signs
Vital Signs
Temp Pulse Resp BP Pulse Ox
97.7 F 70 13 178/89 96
06/29/24 19:49 06/29/24 23:02 06/29/24 23:02 06/29/24 23:00 06/29/24 23:00
Physical Exam
General: Appears in Distress
HEENT: NormoCephalic, Anicteric, Moist mucous membranes and Atraumatic
Respiratory: Clear
Cardiac: S1/S2 and Regular Rhythm
Breast: Deferred by me
GI: Soft
Rectal: Brown
Genito-urinary: Deferred by me
Musculoskeletal: No Clubbing, No Cyanosis and No Edema
Neuro: AO x 3 and Nonfocal/grossly intact
Hematologic/Lymphatic: No Lymphadenopathy
Laboratory Results
-
06/29/24 20:01
06/29/24 20:01
Laboratory Results
Lactic Acid 1.2 mmol/L (0.7-2.0) 06/29/24 21:09
Total Bilirubin 0.6 mg/dl (0.2-1.3) 06/29/24 20:
AST 17 U/L (14-36) 06/29/24 20:01
ALT 11 U/L (0-35) 06/29/24 20:01
Alkaline Phosphatase 81 U/L (38-126) 06/29/24 20:01
Troponin I < 0.012 ng/ml 06/29/24 21:09
Lipase 183 U/L (23-300) 06/29/24 20:01
Data Reviewed
-
CT Scan: Report Reviewed by me
Lab Data: Labs Reviewed by me
Old Records: Reviewed
Impression/Plan
-
IMPRESSION:
83 y.o with intractable nausea/dry heaves and non-specific generalized discomfort.
PLAN:
1. UTI - Generalized discomfort and chills. No fevers. No specific urinary symptoms. U/A is clear and quite positive. H/O anaphylaxis to usual ax.
- admit to med/surg
- urine cultures sent
- s/p 3 g fosfomycin (1 dose), patient reports allergy to all 'mycins' but appeared to have tolerated this dose. She does not want any repeat dosing.
- consider ID consult if cultures are resistant before initiating further abx treatment.
2. Intractable Nausea and anorexia - Recent gastroenteritis possibly exacerbating her PUD. Has untreated duodenal stricture. Denies melena/hematochezia. CT scan negative but poor study. Does not want any contrast.
- PPI IV bid
- continue antiemetics prn
- IV d5 NS for now
- pain control prn
- heme test stools
3. Generalized discomfort - so far non-specific and unclear etiology, suspect UTI
- pain control prn acetaminophen
- viral panel negative
4. HTN - suspect not taking meds
- continue losartan 50
DVT PPX - heparin sq for now pending any positive stool test
Code status - DNR
[2024-06-30] MEDS: D5/0.9% SODIUM CHLORIDE 1000 IV ×2 (03:00→17:26)
[2024-06-30] MEDS: APRESOLINE 5 MG IV (03:30)
[2024-06-30] MEDS: TYLENOL PO ×2 (04:37→13:06)
[2024-06-30] MEDS: COMPAZINE 5 MG IV ×2 (04:43→13:52)
[2024-06-30] MEDS: BENADRYL 50 MG PO (04:43)
[2024-06-30 06:42] LABS: Hematocrit 32.1 % (37.0-47.0); Hemoglobin 10.9 g/dL (12.0-16.0); Mean Corpuscular Hgb 33.1 pg (27.0-31.0); Mean Corpuscular Volume 97.6 fL (81.0-99.0); Platelet Count 352 10^3/uL (130-400); Red Blood Cell Count 3.29 10^6/uL (4.20-5.40); Red Cell Dist. Width 13.8 % (11.5-14.5); White Blood Cell Count 6.8 10^3/uL (4.8-10.8)
[2024-06-30 06:59] LABS: Blood Urea Nitrogen 13 mg/dl (7-17); Calcium 9.5 mg/dl (8.4-10.2); Carbon Dioxide 22 mmol/L (22-30); Chloride 109 mmol/L (98-107); Estimated Creatinine Clearance 58 ml/min; Glucose 103 mg/dl (70-99); Potassium 3.8 mmol/L (3.5-5.1); Sodium 142 mmol/L (135-145); eGFR > 60.00
[2024-06-30] MEDS: TYLENOL 650 MG PO ×3 (09:41→20:23)
[2024-06-30] MEDS: PROTONIX IV 40 MG IV ×2 (09:41→20:23)
[2024-06-30] MEDS: NSS (PRESERVATIVE FREE) 10 ML IV ×2 (09:41→20:23)
[2024-06-30] MEDS: HEPARIN 5000 UNITS SC ×2 (09:42→20:22)
[2024-06-30] MEDS: PEPCID 20 MG PO (09:42)
[2024-06-30] MEDS: COZAAR 50 MG PO (09:42)
[2024-06-30] MEDS: FIORICET 1 TAB PO ×2 (09:52→20:23)
--- NOTE | 2024-06-30 10:30 | W.PN.UPDATE ---
Update Note
Progress Note Update
Non-billable addendum
Admitted 2 AM
currently reports mild abdominal discomfort and weakness from UTI but no nausea/vomiting, no diarrhea
Assessment:
UTI
Generalized weakness
Multiple antibiotic allergies with anaphylaxis as reaction listed
- s/p fosfomycin in ER
- await culture to determine if truly sensitive to fosfomycin - ETest requested by lab
- PT/OT for weakness
Gastroenteritis
Hx of duodenal ulcer/stricture
- CT (no IV contrast): Evaluation of stomach and duodenum is limited by lack of oral contrast agent within the structures. There appears to be dilation of the duodenal bulb. Correlating with prior exams, suggestion of an area of narrowing between
the duodenal bulb and the second portion of the duodenum, with slight dilation of the second portion of the duodenum. There is slight stranding of the fat anterior to the second portion of duodenum. Findings would suggest inflammation associated
with peptic ulcer disease, and please correlate clinically.
- continue PPI IV BID
- anti-emetics
- IVF
- pain control
- clears
- heme test stools
Essential HTN
- continue Losartan
DVT ppx: SC Heparin
Code: DNR/DNI
--- NOTE | 2024-06-30 18:12 | PTCARENOTE ---
Pt arrived to [facility] Acute from ED in hospital bed. D5 NSS infusing @ 75ml/hr through (R) AC. Pt states relief of nausea clear liquid dinner tray.
[2024-07-01] MEDS: TYLENOL PO ×2 (01:23→05:19)
[2024-07-01] MEDS: COMPAZINE 5 MG IV ×2 (02:01→11:26)
[2024-07-01 06:43] LABS: Hematocrit 26.9 % (37.0-47.0); Mean Corp Hgb Conc. 33.5 g/dL (33.0-37.0); Mean Corpuscular Hgb 33.2 pg (27.0-31.0); Mean Corpuscular Volume 99.3 fL (81.0-99.0); Red Blood Cell Count 2.71 10^6/uL (4.20-5.40); Red Cell Dist. Width 14.1 % (11.5-14.5); White Blood Cell Count 4.3 10^3/uL (4.8-10.8)
[2024-07-01 07:05] LABS: Blood Urea Nitrogen 7 mg/dl (7-17); Calcium 8.8 mg/dl (8.4-10.2); Carbon Dioxide 22 mmol/L (22-30); Chloride 114 mmol/L (98-107); Estimated Creatinine Clearance 52 ml/min; Glucose 90 mg/dl (70-99); Potassium 3.6 mmol/L (3.5-5.1); Sodium 144 mmol/L (135-145); eGFR > 60.00
[2024-07-01 07:13] LABS: Mean Platelet Volume 8.8 fL (7.4-10.4); Platelet Count 269 10^3/uL (130-400)
[2024-07-01 07:45] VITALS: BP 150/70
[2024-07-01] MEDS: TYLENOL 650 MG PO ×5 (08:01→23:48)
[2024-07-01] MEDS: PEPCID 20 MG PO (08:02)
[2024-07-01] MEDS: COZAAR 50 MG PO (08:03)
[2024-07-01] MEDS: FIORICET 1 TAB PO ×2 (08:03→16:08)
[2024-07-01] MEDS: HEPARIN 5000 UNITS SC ×2 (08:04→20:30)
[2024-07-01] MEDS: PROTONIX IV 40 MG IV ×2 (08:07→20:32)
[2024-07-01] MEDS: NSS (PRESERVATIVE FREE) 10 ML IV ×2 (08:07→20:31)
--- NOTE | 2024-07-01 09:15 | W.PN.HOSP.TC ---
Today's Communication/Plan
-
migraine control with Fiorcet
PT/OT
advance to LRD
await urine culture
Assessment / Plan
Assessment / Plan
Assessment:
UTI
Generalized weakness
Multiple antibiotic allergies with anaphylaxis as reaction listed
- s/p fosfomycin in ER
- await culture to determine if truly sensitive to fosfomycin - ETest requested by lab
- PT/OT evals
Gastroenteritis
Hx of duodenal ulcer/stricture
- CT (no IV contrast): Evaluation of stomach and duodenum is limited by lack of oral contrast agent within the structures. There appears to be dilation of the duodenal bulb. Correlating with prior exams, suggestion of an area of narrowing between
the duodenal bulb and the second portion of the duodenum, with slight dilation of the second portion of the duodenum. There is slight stranding of the fat anterior to the second portion of duodenum. Findings would suggest inflammation associated
with peptic ulcer disease, and please correlate clinically.
- continue PPI IV BID
- anti-emetics
- pain control
- advanced to LRD
- heme test stools
Essential HTN
- continue Losartan
Chronic Migraines
- prn Fioricet
DVT ppx: SC Heparin
Code: DNR/DNI
Anticipated Discharge: Within 24 hours
Subjective/Interval History
-
Date of Service: July 01, 2024
tolerating clears
reports chronic migraine this morning - requesting home dose of Fiorcet
Objective Data
-
Labs:
Laboratory Results
07/01/24
06:04
WBC 4.3 L
Hgb 9.0 L
Hct 26.9 L
Plt Count 269 D
Sodium 144
Potassium 3.6
Chloride 114 H
Carbon Dioxide 22
BUN 7
Creatinine 0.7
Glucose 90
Calcium 8.8
Vital Signs:
Vital Signs
Temp Pulse Resp BP Pulse Ox
98.0 F 58 14 150/70 100
07/01/24 07:45 07/01/24 07:45 07/01/24 07:45 07/01/24 07:45 07/01/24 07:45
I&O
06/30/24 07/01/24 07/02/24
06:59 06:59 06:59
Intake Total 500 / 500 690 / 690
Balance 500 / 500 690 / 690
Physical Exam
-
General: No Apparent Distress
HEENT: Normocephalic and Atraumatic
Respiratory: Negative Wheezes
Cardiac: Regular Rhythm and S1/S2
GI: Soft
Genito-urinary: No Costovertebral Tender
Neuro: AO x 3
Psych: Calm
Data Reviewed
-
Total Time Spent with Patient (in minutes): 41
Labs: Labs Reviewed by me
--- NOTE | 2024-07-01 10:14 | CM ---
Met with patient who is admitted under OBS status. GUNDERSON signed. Patient lives with spouse and is independent. They have a one level home with no steps to enter. She does not use or own any DME.
No history of SNF or VNA.
PCP DR. Fraser
RX: [facility] in [place]
PLAN: home no needs.
[2024-07-01] MEDS: D5/0.9% SODIUM CHLORIDE IV (11:19)
[2024-07-01 15:30] VITALS: BP 149/55
[2024-07-01 23:02] VITALS: BP 139/69
[2024-07-02] MEDS: BENADRYL 50 MG PO (01:32)
[2024-07-02] MEDS: TYLENOL PO (04:10)
[2024-07-02 07:50] VITALS: BP 179/78
[2024-07-02] MEDS: PROTONIX IV 40 MG IV (08:25)
[2024-07-02] MEDS: TYLENOL 650 MG PO ×2 (08:25→11:58)
[2024-07-02] MEDS: NSS (PRESERVATIVE FREE) 10 ML IV (08:25)
[2024-07-02] MEDS: PEPCID 20 MG PO (08:26)
[2024-07-02] MEDS: HEPARIN 5000 UNITS SC (08:26)
[2024-07-02] MEDS: COZAAR 50 MG PO (08:26)
[2024-07-02] MEDS: APRESOLINE 5 MG IV (08:26)
[2024-07-02 08:34] LABS: Hemoglobin 9.5 g/dL (12.0-16.0); Mean Corp Hgb Conc. 32.8 g/dL (33.0-37.0); Mean Corpuscular Hgb 33.1 pg (27.0-31.0); Mean Platelet Volume 8.7 fL (7.4-10.4); Platelet Count 289 10^3/uL (130-400); Red Blood Cell Count 2.87 10^6/uL (4.20-5.40); Red Cell Dist. Width 14.1 % (11.5-14.5); White Blood Cell Count 3.9 10^3/uL (4.8-10.8)
[2024-07-02 09:14] LABS: Blood Urea Nitrogen 5 mg/dl (7-17); Calcium 9.2 mg/dl (8.4-10.2); Carbon Dioxide 24 mmol/L (22-30); Chloride 113 mmol/L (98-107); Estimated Creatinine Clearance 45 ml/min; Glucose 76 mg/dl (70-99); Potassium 3.7 mmol/L (3.5-5.1); Sodium 144 mmol/L (135-145); eGFR > 60.00
[2024-07-02] MEDS: ORETIC 25 MG PO (11:57)
--- NOTE | 2024-07-02 12:07 | CM ---
Patient seen bedside.
Patient aware of CM needs should d/c needs arise.
Spouse will transport.
Plan: home no needs anticipated
--- NOTE | 2024-07-02 12:29 | W.PN.HOSP.TC ---
Today's Communication/Plan
-
dc
Assessment / Plan
Assessment / Plan
Physical Exam
-
General: No Apparent Distress
HEENT: Normocephalic and Atraumatic
Respiratory: Negative Wheezes
Cardiac: Regular Rhythm and S1/S2
GI: Soft
Genito-urinary: No Costovertebral Tender
Neuro: AO x 3. Nonfocal. Gait is normal
Psych: Calm
Assessment:
UTI
Generalized weakness
Multiple antibiotic allergies with anaphylaxis as reaction listed
- s/p fosfomycin in ER. No WBC, no fevers.
- Urine culture showed pansensitive E. coli, should be sensitive to fosfomycin -
- PT/OT evals gait is independent and normal.
Gastroenteritis
Hx of duodenal ulcer/stricture
- CT (no IV contrast): Evaluation of stomach and duodenum is limited by lack of oral contrast agent within the structures. There appears to be dilation of the duodenal bulb. Correlating with prior exams, suggestion of an area of narrowing between
the duodenal bulb and the second portion of the duodenum, with slight dilation of the second portion of the duodenum. There is slight stranding of the fat anterior to the second portion of duodenum. Findings would suggest inflammation associated
with peptic ulcer disease, and please correlate clinically.
She denies abdominal pain or nausea. Tolerating diet
Essential HTN
Patient reports she takes hydrochlorothiazide 25 mg daily. I reviewed our records, no HCTZ. I also reviewed primary care doctor office portal and showed no hydrochlorothiazide. Patient is requesting it to be given. Patient is certain that she
has been on it for more than 2 years
We will added hydrochlorothiazide to her discharge papers and will add it as an note and discharge summary
- continue Losartan
Chronic Migraines
- prn Fioricet
DVT ppx: SC Heparin
Code: DNR/DNI
Total discharge time spent to see the patient, examine the patient, review data and lab result, discuss discharge plan with patient, nursing staff around 65 minutes
Anticipated Discharge: Today
Subjective/Interval History
-
Date of Service: July 02, 2024
She feels better, no pain, no dysuria. No nausea or vomiting
She wants to go home
Objective Data
-
Labs:
Laboratory Results
07/02/24
07:48
WBC 3.9 L
Hgb 9.5 L
Hct 29.0 L
Plt Count 289
Sodium 144
Potassium 3.7
Chloride 113 H
Carbon Dioxide 24
BUN 5 L
Creatinine 0.8
Glucose 76
Calcium 9.2
Vital Signs:
Vital Signs
Temp Pulse Resp BP Pulse Ox
98.4 F 62 16 179/78 99
07/02/24 07:50 07/02/24 07:50 07/02/24 07:50 07/02/24 07:50 07/02/24 07:50
I&O
07/01/24 07/02/24 07/03/24
06:59 06:59 06:59
Intake Total 690 / 690
Output Total 240 / 240
Balance 690 / 690 -240 / -240
--- NOTE | 2024-07-02 15:41 | W.DCSUMMARY ---
Discharge Summary
Discharge Data
Date of Admission: 06/29/24
Date of Discharge: 07/02/24
-
Pending Results: No
Hospital Course
83 years old female presented for evaluation of generalized weakness. Patient reported 1 week duration of nonspecific symptoms including diarrhea and nausea. She denied fever, chest pain, abdominal pain or shortness of breath. She did not have
leukocytosis or fever. She had negative influenza and COVID screen. She had mild hypomagnesemia and was given replacement. Urine test showed positive urine nitrite, leukocyte Estrace and bacteria. Urine culture came positive for pansensitive E.
coli. Patient was given 1 dose of Fosfomycin with no reaction. Patient felt better and tolerated diet well. Patient reported that she was taking 25 mg daily of hydrochlorothiazide for almost 2 years. The medicine was not registered on her home
medications list or primary care doctor office's portal list. She remained hemodynamically stable was discharged home in a stable condition.
Discharge Plan
-
Patient Disposition: Home (Routine Discharge)
Discharge Diagnosis/Procedures: UTI with E coli
Please talk with your primary care doctor regarding HCTZ
Diet: As tolerated
Referrals:
UNKNOWN - PT DOES,NOT KNOW [Family Provider] -
Prescriptions:
Continued
diphenhydramine HCl [Banophen] 50 MG capsule
50 mg PO HSPRN PRN (Reason: allergies)
calcium carbonate [Oyster Shell Calcium 500] 500 MG tablet
500 mg PO DAILY
albuterol sulfate 1 PUFF HFA aerosol inhaler
2 puff inhalation R Q4HPRN PRN (Reason: shortness of breath)
glucosamine-chondroitin 1 CAP capsule
1 cap PO BIDPRN PRN (Reason: supplement)
docosahexaenoic acid-epa 1 CAP capsule
1 cap PO BIDPRN PRN (Reason: supplement)
multivitamin with folic acid [Tab-A-Shaunna] 1 TABLET tablet
1 tab PO DAILY
losartan 50 mg tablet
50 mg PO DAILY
prochlorperazine maleate 10 mg tablet
10 mg PO TIDPRN PRN (Reason: nausea)
cholecalciferol (vitamin D3) 50 mcg (2,000 unit) Tablet
50 mcg PO DAILY
budesonide-formoterol 160-4.5 mcg/actuation HFA aerosol inhaler
1 puff INHALATION R BID
pantoprazole 40 mg Tablet,Delayed Release (Dr/Ec)
40 mg PO BID Qty: 60 0RF
iwfpwsyblt-oqgeqymowidgw-dofk [Fioricet] 50-300-40 mg Capsule
1 cap PO Q4H PRN (Reason: migraine)
hydrochlorothiazide
25 mg PO DAILY
Discharge Orders:
Discharge Patient (As Directed); Ordered 07/02/24
Ordered By: Yanet Cordero
Discharge Date and Time
Discharge Date/Time: 07/02/24 12:42
Print Language: SETSWANA
== END 2024-07-02 12:42 | disposition home or self-care (01) | DRG 690 ==
LOC: 1 ACUTE 06:42
PROVIDERS: Internal Medicine; Physician Assistant; Student in an Organized Health Care Education/Training Program; ADMITTING PHYSICIAN Internal Medicine; ATTENDING PHYSICIAN Internal Medicine; EMERGENCY PHYSICIAN Emergency Medicine
DX: N39.0 Urinary tract infection, site not specified (principal); I50.32 Chronic diastolic (congestive) heart failure; K31.5 Obstruction of duodenum; B96.20 Unspecified Escherichia coli [E. coli] as the cause of diseases classified elsewhere; Z66 Do not resuscitate; E78.5 Hyperlipidemia, unspecified; E83.42 Hypomagnesemia; G43.909 Migraine, unspecified, not intractable, without status migrainosus; I11.0 Hypertensive heart disease with heart failure; J45.909 Unspecified asthma, uncomplicated; K21.9 Gastro-esophageal reflux disease without esophagitis; Z88.1 Allergy status to other antibiotic agents; Z88.5 Allergy status to narcotic agent; Z88.0 Allergy status to penicillin; Z79.899 Other long term (current) drug therapy; K52.9 Noninfective gastroenteritis and colitis, unspecified; K26.9 Duodenal ulcer, unspecified as acute or chronic, without hemorrhage or perforation
CPT/HCPCS: 70450; 71046; 74176; 80048; 80053; 81003; 81015; 82550; 83605; 83690; 83735; 84484; 85025; 85027; 87086; 87088; 87181; 87186; 87502; 87811; 93005; 96361; 96374; 96375; 97162; 97165; 99285

== ENCOUNTER 2024-07-25 11:53 | Observation (INO) | payer MEDICARE, OTHER, SELFPAY ==
[2024-07-25] VITALS (17 sets, daily range): BP systolic 108–201; BP diastolic 50–100; BMI 27.5
--- NOTE | 2024-07-25 02:48 | ED.GENMED ---
History of Present Illness
<Lyn Alas PA-C - Last Filed: 07/25/24 09:49>
General
Chief Complaint: Abdominal Pain
Source: patient
Exam Limitations: none
Time Seen by Provider: 07/25/24 02:35
Nursing documentation reviewed up to this point in time: agreed with
History of Present Illness
History of Present Illness:
This a 83-year-old female with past medical history of hypertension, hyperlipidemia, duodenal ulcers presents emergency department today with concerns of right sided lower abdominal pain associated with nausea and vomiting for the past day. Patient
reports that she traveled to [facility] this past weekend and for the past 3 days, she has had persistent nausea and feelings of generalized weakness. She denies any fevers or chills. Few hours prior to arrival to the emergency department, she
did start to develop right sided abdominal pain. Patient states that she is never had pain like this before. Does not radiate to the back at all does not radiate into the pelvis. She has no dysuria or hematuria associated with this. Of note, she
has had an appendectomy and cholecystectomy in the past. She denies upper abdominal pain, chest pain. She denies any shortness of breath. She also reports that she developed a headache with this as well and noticed that her blood pressure was
elevated. She denies any neck pain. She denies any paresthesias in her upper or lower extremities. She does have a history of migraines and takes Tylenol as needed.
Past History
<Lyn Alas PA-C - Last Filed: 07/25/24 09:49>
Past History
ED Past Medical History: Asthma, HTN and Other (Migraines)
ED Past Surgical History: Orthopedic and Other (Hernia)
Social History
Tobacco: Non-smoker
Personal:
Living: with family
Review of Systems
<Lyn Alas PA-C - Last Filed: 07/25/24 09:49>
Review of Systems
All Other Systems: ROS reviewed and negative except as documented in HPI and ROS
Phy Exam
<Lyn Alas PA-C - Last Filed: 07/25/24 09:49>
Physical Exam
Physical Exam:
General: Patient is well appearing and in no acute distress; non-toxic
Skin: Warm and dry, no rashes or lesions
Head: Normocephalic, atraumatic
Eyes: Sclera non-icteric. EOMs intact.
Cardiac: Regular rate and rhythm, no murmurs
Peripheral Vascular: No lower extremity swelling or edema
Pulm: Normal respiratory effort, no wheezes, rales, or rhonchi
Abdomen: Periumbilical and RLQ tenderness to palpation with guarding, normoactive bowel sounds
Neuro: CN II-XII intact, no focal neurologic deficits.
Psychiatric: Appropriate mood and affect.
Course
<Lyn Alas PA-C - Last Filed: 07/25/24 09:49>
Orders/Labs/Results
Orders:
Orders
07/25/24 03:13
Ondansetron HCl [Zofran] 4 mg PO NOW STA
07/25/24 03:20
Complete Blood Count/With Diff Urgent
Comprehensive Metabolic Panel Urgent
Lipase Urgent
07/25/24 03:26
CT Abd/pel (oral only)-[facility] Only Urgent
Comment:
Reason For Exam: RLQ pain
Iohexol [Omnipaque] See Protocol PO NOW STA
07/25/24 03:48
CT Head W/o Iv Contrast Urgent
Comment:
Reason For Exam: headache, hypertension
07/25/24 03:49
Acetaminophen [Tylenol] 650 mg PO NOW STA
07/25/24 04:55
Urinalysis Reflex To Culture Urgent
Date Specimen was Collected: 07/25/24
Time Specimen was Collected: 04:54
Urine Microscopic Reflex Cult Urgent
Urine Culture Urgent
AISHWARYA Source: U
Specimen Description:
Date Specimen was Collected: 07/25/24
Time Specimen was Collected: 04:54
07/25/24 05:47
Vital Signs- Treatment ONCE
Frequency: Once
07/25/24 06:30
Lactic Acid Urgent
07/25/24 07:54
Acetaminophen [Tylenol] 650 mg PO NOW STA
Ondansetron Injectable [Zofran] 4 mg IV NOW STA
Abnormal Lab Results
07/25/24 07/25/24
03:20 04:55
RBC 3.70 L 10^6/uL
(4.20-5.40)
MCV 100.3 H fL
(81.0-99.0)
MCH 33.2 H pg
(27.0-31.0)
Monocytes % 10.2 H %
(1.7-9.3)
Chloride 112 H mmol/L
(98-107)
Glucose 102 H mg/dl
(70-99)
Urine Ketones 1+ A
(Negative)
Ur Occult Blood Reflex 1+ A
(Negative)
Urine Bilirubin 1+ A
(Negative)
Leukocyte Esterase Rfl 3+ A
(Negative)
Urine RBC 3-6 A /HPF
(0-2)
Urine Albumin (Reflex) 2+ A
(Neg - Trace)
07/25/24 03:20
07/25/24 03:20
Vital Signs
Initial and Last Documented VS:
Initial Vital Signs
Temp Pulse Resp BP Pulse Ox
98.3 F 68 16 191/100 100
07/25/24 02:12 07/25/24 02:12 07/25/24 02:12 07/25/24 02:12 07/25/24 02:12
Last Documented Vital Signs
Temp Pulse Resp BP Pulse Ox
98.3 F 63 25 108/50 100
07/25/24 02:12 07/25/24 09:30 07/25/24 09:30 07/25/24 09:00 07/25/24 08:00
<Mushtaq Barnes, DO - Last Filed: 07/25/24 06:20>
Orders/Labs/Results
Orders:
Orders
07/25/24 03:13
Ondansetron HCl [Zofran] 4 mg PO NOW STA
07/25/24 03:20
Complete Blood Count/With Diff Urgent
Comprehensive Metabolic Panel Urgent
Lipase Urgent
07/25/24 03:26
CT Abd/pel (oral only)-[facility] Only Urgent
Comment:
Reason For Exam: RLQ pain
Iohexol [Omnipaque] See Protocol PO NOW STA
07/25/24 03:48
CT Head W/o Iv Contrast Urgent
Comment:
Reason For Exam: headache, hypertension
07/25/24 03:49
Acetaminophen [Tylenol] 650 mg PO NOW STA
07/25/24 04:55
Urinalysis Reflex To Culture Urgent
Date Specimen was Collected: 07/25/24
Time Specimen was Collected: 04:54
Urine Microscopic Reflex Cult Urgent
Urine Culture Urgent
AISHWARYA Source: U
Specimen Description:
Date Specimen was Collected: 07/25/24
Time Specimen was Collected: 04:54
07/25/24 05:47
Vital Signs- Treatment ONCE
Frequency: Once
07/25/24 06:30
Lactic Acid Urgent
07/25/24 07:54
Acetaminophen [Tylenol] 650 mg PO NOW STA
Ondansetron Injectable [Zofran] 4 mg IV NOW STA
Abnormal Lab Results
07/25/24 07/25/24
03:20 04:55
RBC 3.70 L 10^6/uL
(4.20-5.40)
MCV 100.3 H fL
(81.0-99.0)
MCH 33.2 H pg
(27.0-31.0)
Monocytes % 10.2 H %
(1.7-9.3)
Chloride 112 H mmol/L
(98-107)
Glucose 102 H mg/dl
(70-99)
Urine Ketones 1+ A
(Negative)
Ur Occult Blood Reflex 1+ A
(Negative)
Urine Bilirubin 1+ A
(Negative)
Leukocyte Esterase Rfl 3+ A
(Negative)
Urine RBC 3-6 A /HPF
(0-2)
Urine Albumin (Reflex) 2+ A
(Neg - Trace)
07/25/24 03:20
07/25/24 03:20
Vital Signs
Initial and Last Documented VS:
Initial Vital Signs
Temp Pulse Resp BP Pulse Ox
98.3 F 68 16 191/100 100
07/25/24 02:12 07/25/24 02:12 07/25/24 02:12 07/25/24 02:12 07/25/24 02:12
Last Documented Vital Signs
Temp Pulse Resp BP Pulse Ox
98.3 F 63 25 108/50 100
07/25/24 02:12 07/25/24 09:30 07/25/24 09:30 07/25/24 09:00 07/25/24 08:00
Ana Paulalt;Lyn Alas PA-C - Last Filed: 07/25/24 09:49>
MDM/Problems Addressed
Differential Diagnosis Includes:
ddx include colitis, UTI, viral syndrome, bowel obstruction, etc.
MDM/Problems Addressed:
This a 83-year-old female with past medical history of hypertension, hyperlipidemia, duodenal ulcers presents emergency department today with concerns of right sided lower abdominal pain associated with nausea and vomiting for the past day. CT scan
and lab work shows no acute findings. Patient feels too ill to be discharged. Will admit for further work-up and continued symptomatic management. Case reviewed with ER attending.
<Lyn Alas PA-C - Last Filed: 07/25/24 09:49>
*Pulse Oximetry
Patient hypoxic: no
*Critical Care Note
Total Time (30-74mins, 75-104mins- exclusive of procedures): Not Applicable
Data Reviewed
Review of Other/Old Records Reveals: Records (reviewed discharge summary from 07/02/24)
Source: patient and records
ED Attending Note
<Lyn Alas PA-C - Last Filed: 07/25/24 09:49>
-
Portions of this chart may have been created with voice recognition software.� Occasional wrong word or��sound alike� substitutions may have occurred due to the inherent limitations of voice recognition software.
<Mushtaq Barnes DO - Last Filed: 07/25/24 06:20>
ED Attending Note
Patient seen and examined by attending physician: Yes
ED Attending Note:
83-year-old female presents with nausea vomiting and right lower quadrant abdominal pain that occurred 3 hours prior to arrival. Patient states that she was at rest when the pain occurred. States that fever ensued and was 100.6 prior to coming into
the emergency department. Patient reports the vomitus is nonbloody. Patient was seen in conjunction with the PA. I have reviewed and agree with her history and treatment plan. Amendment physical exam patient is awake alert and oriented in
minimal to moderate amount of pain. Right lower quadrant had some guarding. Good bowel sounds x 4 quadrants. Skin is warm and dry moves all [address] scan was unremarkable. Will continue to observe and possibly admit for pain management
and serial exams.
Discharge Plan
Departure
Patient Disposition: Admit
Date of Disposition: 07/25/24
Time of Disposition: 07:06
Admit to: Med/Surg
Presentation/result/management discussed w/ accepting MD/DO: Hospitalist
Condition: Fair
Discharge Problem:
Abdominal pain, Fever
Prescriptions:
No Action
calcium carbonate [Oyster Shell Calcium 500] 500 MG tablet
500 mg PO DAILY
losartan 50 mg tablet
50 mg PO DAILY
cholecalciferol (vitamin D3) 50 mcg (2,000 unit) Tablet
50 mcg PO DAILY
budesonide-formoterol 160-4.5 mcg/actuation HFA aerosol inhaler
1 puff INHALATION R BID
omjefvggem-jfwwjtrxkyawy-dqkm [Fioricet] 50-300-40 mg Capsule
1 cap PO Q4HPRN PRN (Reason: migraine)
hydrochlorothiazide 50 mg Tablet
50 mg PO DAILY Qty: 0
carvedilol [Coreg] 12.5 mg Tablet
12.5 mg PO DAILY
albuterol sulfate [ProAir HFA] 90 mcg/actuation Hfa Aerosol Inhaler
2 puff INHALATION R Q6HPRN PRN (Reason: sob)
pantoprazole 40 mg tablet,delayed release (DR/EC)
40 mg PO DAILY
Referrals:
UNKNOWN - PT DOES,NOT KNOW [Unknown Provider]
Interventions
Interventions:
*Risk Screen - Suicide Last Done: 07/25/24 02:12
*General Assessment Last Done: 07/25/24 02:47
*Neglect/Abuse Screening Last Done: 07/25/24 02:12
*ED- Fall Risk Assessment Last Done: 07/25/24 02:12
*ED COVID-19 Vaccine History Last Done: 07/25/24 02:12
QR-Ccfwlj-Jaemqyjywm Assessment Last Done: 07/25/24 07:20
Discharge Date and Time
Print Language: MICRONESIAN
[2024-07-25] MEDS: ZOFRAN 4 MG PO (03:18)
[2024-07-25 03:33] LABS: % Basophils 1.3 % (0-2); % Eosinophils 3.6 % (0-6); % Immature Granulocytes 0.4 % (0-0.5); % Lymphocytes 25.9 % (20.5-51.1); % Monocytes 10.2 % (1.7-9.3); % Neutrophils 58.6 % (42.2-75.2); Absolute Basophils 0.1 10^3/uL (0-0.2); Absolute Eosinophils 0.2 10^3/uL (0-0.7); Absolute Lymphocytes 1.5 10^3/uL (1.2-3.4); Absolute Monocytes 0.6 10^3/uL (0.1-0.6); Absolute Neutrophils 3.3 10^3/uL (1.4-6.5); Hematocrit 37.1 % (37.0-47.0); Hemoglobin 12.3 g/dL (12.0-16.0); Mean Corp Hgb Conc. 33.2 g/dL (33.0-37.0); Mean Corpuscular Hgb 33.2 pg (27.0-31.0); Mean Corpuscular Volume 100.3 fL (81.0-99.0); Mean Platelet Volume 8.6 fL (7.4-10.4); Nucleated Red Blood Cells % 0 %; Platelet Count 313 10^3/uL (130-400); White Blood Cell Count 5.6 10^3/uL (4.8-10.8)
[2024-07-25] MEDS: OMNIPAQUE 50 ML PO (03:34)
[2024-07-25 03:54] LABS: ALT (SGPT) 11 U/L (0-35); AST (SGOT) 18 U/L (14-36); Albumin 4.5 g/dl (3.5-5.0); Alkaline Phosphatase 85 U/L (38-126); Blood Urea Nitrogen 13 mg/dl (7-17); Calcium 9.9 mg/dl (8.4-10.2); Carbon Dioxide 22 mmol/L (22-30); Chloride 112 mmol/L (98-107); Glucose 102 mg/dl (70-99); Lipase 152 U/L (23-300); Potassium 3.7 mmol/L (3.5-5.1); Sodium 144 mmol/L (135-145); Total Bilirubin 0.6 mg/dl (0.2-1.3); Total Protein 6.9 g/dl (6.3-8.2); eGFR > 60.00
[2024-07-25] MEDS: TYLENOL 650 MG PO ×2 (03:55→07:58)
[2024-07-25 05:10] LABS: Urine Albumin 2+ (Neg - Trace); Urine Bilirubin 1+ (Negative); Urine Character Clear (Clear); Urine Color Amber; Urine Glucose Negative (Negative); Urine Ketone 1+ (Negative); Urine Leukocyte 3+ (Negative); Urine Nitrite Negative (Negative); Urine Occult Blood 1+ (Negative); Urine Specific Gravity 1.025 (<1.030); Urine Urobilinogen 1+ (Neg - 1+)
[2024-07-25 06:03] LABS: Urine Squamous Cell >30 /LPF (Few)
[2024-07-25 06:04] LABS: Urine Calcium Oxalate Crystals Present; Urine Hyaline Cast 0-2 /LPF (0-2)
[2024-07-25 06:59] LABS: Lactic Acid 0.7 mmol/L (0.7-2.0)
[2024-07-25] MEDS: ZOFRAN 4 MG IV (07:57)
[2024-07-25] MEDS: COMPAZINE 10 MG IV (10:13)
--- NOTE | 2024-07-25 11:40 | CON.GI ---
Addendum entered and electronically signed by Jenny Byers MD 07/25/24 16:04:
I saw and examined the patient.
The WELD TECHNICIAN's note was reviewed and I agree with the note.
Comment: This is a 83-year-old female with past medical history as listed below including multiple recent admissions initial admission from 10/23-10/26 for abdominal pain and had CT and upper GI at that time which showed large duodenal ulcer with
luminal narrowing and she then had an endoscopy with Dr. Gorman on 10/26/2023 and was found to have large partially obstructing cratered duodenal ulcer in the duodenal bulb and first portion of the duodenum biopsies were negative for malignancy and she
was also noted to have gastric ulcer and esophageal ulcers at that time. She then was readmitted from 11/01-11/03 with abdominal pain and had a repeat upper GI during that admission on 11/02/2023 which basically showed severe peptic ulcer disease in
the proximal duodenum with a posteriorly protruding duodenal ulcer and a nonobstructing proximal duodenal stricture no extravasation of contrast was noted. Patient was offered surgery since she had ongoing symptoms from the ulcer but she had
adamantly refused surgery and was told to take PPI twice daily with a soft pur�ed diet and to have repeat endoscopy with Dr. Gorman in 8 weeks unfortunately she had not followed up. She was admitted again from 06/29/2024 to 07/02/2024 with symptoms of
weakness and was diagnosed with a UTI and was treated with antibiotics at that time and had another CT on 06/29/2024 which did not reveal any evidence of obstruction and there was less inflammatory changes around the duodenum. She now presents with
epigastric abdominal pain and had a repeat CT today described as below which shows soft tissue stranding anterior to the pancreatic head and duodenum but less pronounced than prior exams there was some nonspecific inflammation near the appendiceal
stump she is status post appendectomy.
Assessment and plan epigastric pain which seems to have actually improved now and prior history of large duodenal ulcer in the bulb and first portion causing luminal narrowing biopsies were negative for malignancy and was thought to be most likely
related to NSAID use which she says she has not been using since that admission in October. She unfortunately seems to be having a chronic nonhealing ulcer despite being on PPI but it is unclear whether she was taking it once or twice a day will
need to strictly avoid NSAIDs and increase the PPI to twice daily indefinitely. will schedule her for repeat endoscopy tomorrow her blood pressure was high today and CT head was negative. She was also having vague lower abdominal pain which seems
to have improved now. She was recommended surgery in the past for nonhealing duodenal ulcer but patient had adamantly refused and even today had said that she does not want to have any type of surgery.
Original Note:
Consultation
-
Date/Time Consultation Requested: 07/25/24 1115
Date/Time Consultation Performed: 07/25/24 1140
Requesting Provider: Blake Szymanski MD
Performing Provider: NEVILLE Merlos, Jenny Byers MD
Reason for Consultation: abdominal pain and nausea
Medical History
Chief Complaint / HPI
Chief Complaint: Abdominal Pain, Nausea/vomiting
History of Present Illness:
Ms Delgado is an 83 year old female with past medical history of GERD, HTN, HLD, migraines (previous NSAID use and Fioricet), chronic HFpEF, colon polyps, and hx of prior duodenal ulcer years ago. Pt also report history of appe and maximilian in past.
She had several admission October 2023 with epigastric abdominal pain. Initial CT imaging concerning for duodenitis and potential deep penetrating ulcer versus contained perforation. and follow up UGIS was (-) for extravasation and revealed a 3
cm segment of luminal narrowing and irregularity in the proximal second portion concerning for PUD versus duodenal adenocarcinoma along with a 4.0 cm collection concerning for a duodenal diverticulum. She eventually underwent an EGD on 10/26/2023
where she was found to have a large, deeply penetrating duodenal ulcer (FC IIc) in the duodenal bulb to the duodenal sweep. Additionally, found to have multiple scattered small gastric ulcers and small linear esophageal ulcer in the distal esophagus
without stigmata of bleeding. Biopsies were obtained and ultimately negative for malignancy, dysplasia, and H pylori. She was discharged and returned after that admission with repeat UGI with similar finding with severe PUD and concern for non
obstructing duodenal stricture without obstruction. She was to follow up for repeat EGD and cancelled office and repeat EGD was not completed.
She is now noted with recent UTI and recurrent abdominal pain similar to pain last fall with ulcer. Pain is intermittent up to 8/10. She admits to occasional vomiting bile and occasional loose stools and constipation but denies dysphagia, wt
loss, GERD, nausea, blood or black in stools. Pt denies NSAID use.
CT with oral contrast --
No obstructive uropathy. Parapelvic cyst formation, left greater than right.
Previously described soft tissue stranding anterior to the pancreatic head and duodenum is less pronounced on the current examination.
Appendix is difficult to identify with certainty. At the posteromedial margin of the cecum a small amount of contrast material is seen within a small structure which could represent a small appendix or appendix stump. The margins are slightly
prominent, measuring up to 3 mm., Similar to prior examination. No adjacent or surrounding soft tissue stranding. Cannot entirely exclude low-grade or chronic appendicitis proper clinical setting.
.
Past Medical History
Past Medical History: Other (As listed above- GERD, HTN, HLD, migraines (previous NSAID use and Fioricet), colon polyps, and hx of prior duodenal ulcer, chronic HFpEF)
Past Surgical History: Other (Appendectomy, CCY, ABIMAEL, hernia repair)
Social History
Tobacco: Non-Smoker
Alcohol: None
Drug: None
Personal:
Living: With Family
Employment: Retired
Family History
Family History: Other (Family hx of CRC, no other family hx of GI malignancy)
Allergies / Home Medications
Allergy/AdvReac Type Severity Reaction Status Date / Time
cephalexin monohydrate (From Allergy Anaphylaxis Verified 07/25/24 02:11
Keflex)
clindamycin Allergy Anaphylaxis Verified 07/25/24 02:11
erythromycin base Allergy Anaphylaxis Verified 07/25/24 02:11
(Erythromycin Base)
gentamicin (Gentamicin) Allergy Anaphylaxis Verified 07/25/24 02:11
levofloxacin (From Levaquin) Allergy Anaphylaxis Verified 07/25/24 02:11
Penicillins Allergy Anaphylaxis Verified 07/25/24 02:11
Tetracyclines Allergy Anaphylaxis Verified 07/25/24 02:11
vancomycin Allergy Anaphylaxis Verified 07/25/24 02:11
ciprofloxacin (From Cipro) AdvReac Nausea / Verified 07/25/24 02:11
Vomiting /
Headache
codeine AdvReac Nausea / Verified 07/25/24 02:11
Vomiting /
Headache
iodine AdvReac Vomiting Verified 07/25/24 02:11
morphine AdvReac Shortness Verified 07/25/24 02:11
of Breath
mycin Allergy Anaphylaxis Uncoded 07/25/24 02:11
�Medication �Instructions �Recorded
calcium carbonate (Oyster Shell 500 mg PO DAILY Supplement 06/23/14
Calcium 500)
budesonide-formoterol HFA 160 1 puff inhalation R BID 10/24/23
mcg-4.5 mcg/actuation aerosol Lung/Breathing Issues
inhaler
cholecalciferol (vitamin D3) 50 50 mcg PO DAILY Supplement 10/24/23
mcg (2,000 unit) tablet
losartan 50 mg tablet 50 mg PO DAILY Blood Pressure 10/24/23
rtdxcgyfze-qmklljryshpix-dhsyhglr 1 cap PO Q4HPRN PRN migraine 06/30/24
50 mg-300 mg-40 mg capsule
(Fioricet)
hydrochlorothiazide 50 mg tablet 50 mg PO DAILY Blood Pressure ##0 07/02/24
albuterol sulfate 90 mcg/actuation 2 puff inhalation R Q6HPRN PRN sob 07/25/24
aerosol inhaler
carvedilol 12.5 mg tablet (Coreg) 12.5 mg PO DAILY Blood Pressure 07/25/24
pantoprazole 40 mg tablet,delayed 40 mg PO DAILY Gastrointestinal 07/25/24
release Issue
Review of Systems
-
History Source: Patient
Constitutional: Reports No Symptoms
EENT: Reports No Symptoms
Respiratory: Reports No Symptoms
Cardiac: Reports No Symptoms
Abdomen/GI: Reports Abdominal Pain, Nausea, Vomiting and Diarrhea
: Reports No Symptoms
Musculoskeletal: Reports No Symptoms
Skin: Reports No Symptoms
Neurological: Reports Dizzy and Weakness
Endocrine: Reports No Symptoms
Hematologic/Lymphatic: Reports No Symptoms
Vital Signs
Temp Pulse Resp BP Pulse Ox
98.3 F 75 22 172/66 100
07/25/24 02:12 07/25/24 10:21 07/25/24 10:21 07/25/24 10:21 07/25/24 08:00
Physical Exam
Exam
General: Well Developed, Well Nourished and No Apparent Distress
HEENT: Normocephalic and Anicteric
Respiratory: Clear
Cardiac: Regular Rhythm
GI: Soft, Non Distended and Tender (mild with deep palpation)
Musculoskeletal: No Clubbing and No Cyanosis
Skin: Warm and Dry
Neuro: Awake, Alert and AO x 3
Psych: Calm
Results
WBC 5.6 10^3/uL (4.8-10.8) 07/25/24 03:20
Hgb 12.3 g/dL (12.0-16.0) 07/25/24 03:20
Hct 37.1 % (37.0-47.0) 07/25/24 03:20
MCV 100.3 fL (81.0-99.0) H 07/25/24 03:20
Plt Count 313 10^3/uL (130-400) 07/25/24 03:20
Absolute Neuts (auto) 3.3 10^3/uL (1.4-6.5) 07/25/24 03:20
Sodium 144 mmol/L (135-145) 07/25/24 03:20
Potassium 3.7 mmol/L (3.5-5.1) 07/25/24 03:20
Chloride 112 mmol/L (98-107) H 07/25/24 03:20
Carbon Dioxide 22 mmol/L (22-30) 07/25/24 03:20
BUN 13 mg/dl (7-17) 07/25/24 03:20
Creatinine 0.8 mg/dL (0.6-1.0) 07/25/24 03:20
Calcium 9.9 mg/dl (8.4-10.2) 07/25/24 03:20
Total Bilirubin 0.6 mg/dl (0.2-1.3) 07/25/24 03:20
AST 18 U/L (14-36) 07/25/24 03:20
ALT 11 U/L (0-35) 07/25/24 03:20
Alkaline Phosphatase 85 U/L (38-126) 07/25/24 03:20
Lipase 152 U/L (23-300) 07/25/24 03:20
Diagnostic Image Results:
07/01/23 CT Abd/pel (oral only)-[facility] Only
Evaluation of stomach and duodenum is limited by lack of oral contrast agent within the structures. There appears to be dilation of the duodenal bulb. Correlating with prior exams, suggestion of an area of narrowing between the duodenal bulb and the
second portion of the duodenum, with slight dilation of the second portion of the duodenum. There is slight stranding of the fat anterior to the second portion of duodenum. Findings would suggest inflammation associated with peptic ulcer disease,
and please correlate clinically.
There is no evidence of free intraperitoneal air.
As warranted, especially if there are persistent clinical symptoms, consideration could be given to a follow-up CT of the abdomen with oral contrast given just before performance of the examination. Alternatively, a follow-up upper GI series could
be performed.
Bony degenerative changes as described.
No focal abnormality of the pancreas on this unenhanced exam. The patient has a normal lipase value.
07/25/24 CT Abd/pel (oral only)-[facility] Only
No obstructive uropathy. Parapelvic cyst formation, left greater than right.
Previously described soft tissue stranding anterior to the pancreatic head and duodenum is less pronounced on the current examination.
Appendix is difficult to identify with certainty. At the posteromedial margin of the cecum a small amount of contrast material is seen within a small structure which could represent a small appendix or appendix stump. The margins are slightly
prominent, measuring up to 3 mm., Similar to prior examination. No adjacent or surrounding soft tissue stranding. Cannot entirely exclude low-grade or chronic appendicitis proper clinical setting.
S/p EGD on 10/26/23: - Normal proximal esophagus and mid esophagus.
- Small, superficial esophageal ulcer with no bleeding
and no stigmata of recent bleeding. Biopsied.
- Non-obstructing and mild Schatzki ring at 43 cms.
- Few, scattered non-bleeding gastric ulcers with a
clean ulcer base (Nikita Class III). Biopsied.
- Otherwise, normal stomach on direct and retroflexion
views. Biopsied to rule out H pylori.
- Large, partially obstructing, cratered duodenal
ulcer with a flat pigmented spot (Nikita Class IIc).
The ulcer was deeply penetrating and approximately 3
cms in size. The ulcer was carefully biopsied to r/o
malignancy.
- Few, scattered non-bleeding duodenal ulcers with a
clean ulcer base (Nikita Class III) in the duodenal
bulb.
- Otherwise, normal first portion of the duodenum and
second portion of the duodenum.
- The examination was otherwise normal.
UGIS 10/24/2023- Impression:
1. 3 cm in length segment of luminal narrowing and mucosal irregularity in the proximal 2nd portion of the duodenum corresponding to a segment of wall thickening seen on the CT examination performed 10/24/2023. Diagnostic possibilities are (1)
inflammatory wall thickening from peptic ulcer disease or (2) duodenal adenocarcinoma.
2. 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
3. No fluoroscopic evidence for gastric outlet or duodenal obstruction.
4. No fluoroscopic evidence for extravasation of contrast into the peritoneal cavity.
CT Abd/pelvis 10/24/2023- Impression:
1. ACUTE PERFORATED PROXIMAL DUODENAL ULCER.
2. 5.9 cm loculated collection of fluid and air adjacent to the proximal duodenum.
3. Moderate chronic bilateral renal disease.
4. Small calcified granulomas in the spleen.
5. Previous cholecystectomy, hysterectomy, and left inguinal hernia repair.
6. Mild cardiomegaly.
ADDENDUM: The patient is reportedly not tender in the right upper quadrant of the abdomen. There is a history of previous duodenal surgery. The abnormal morphology of the proximal duodenum could be postsurgical in etiology. There is no definitive
evidence for extraluminal collection of air or fluid. There is thickening of the proximal duodenal wall with adjacent fat stranding which could be postprocedural scarring.
11/02/23 UGI series
1. SEVERE PEPTIC ULCER DISEASE in the PROXIMAL DUODENUM with a posteriorly protruding DUODENAL ULCER and a NONOBSTRUCTING PROXIMAL DUODENAL STRICTURE which is similar in appearance to 10/24/2023.
2. No fluoroscopic evidence for duodenal obstruction or extravasation of contrast material into the peritoneal cavity.
Prior GI Procedures:
Colonoscopy: none on prior record
Assessment / Plan
-
Ms Delgado is an 83 year old female with past medical history of GERD, HTN, HLD, migraines (previous NSAID use and Fioricet), chronic HFpEF, colon polyps, and hx of prior duodenal ulcer years ago. Pt also reports history of appe. She had several
admission October 2023 with epigastric abdominal pain. Initial CT imaging concerning for duodenitis and potential deep penetrating ulcer versus contained perforation. and follow up UGIS was (-) for extravasation and revealed a 3 cm segment of
luminal narrowing and irregularity in the proximal second portion concerning for PUD versus duodenal adenocarcinoma along with a 4.0 cm collection concerning for a duodenal diverticulum. She eventually underwent an EGD on 10/26/2023 where she was
found to have a large, deeply penetrating duodenal ulcer (FC IIc) in the duodenal bulb to the duodenal sweep. Additionally, found to have multiple scattered small gastric ulcers and small linear esophageal ulcer in the distal esophagus without
stigmata of bleeding. Biopsies were obtained and ultimately negative for malignancy, dysplasia, and H pylori. She was discharged and returned after that admission with repeat UGI with similar finding with severe PUD and concern for non obstructing
duodenal stricture without obstruction. She was to follow up for repeat EGD and cancelled office and repeat EGD was not completed. She is now noted with recent UTI and recurrent abdominal pain similar to pain last fall with ulcer. Pain is
intermittent up to 09/30. She admits to occasional vomiting bile and occasional loose stools. Pt denies NSAID use.
07/25 CT with oral contrast --
No obstructive uropathy. Parapelvic cyst formation, left greater than right.
Previously described soft tissue stranding anterior to the pancreatic head and duodenum is less pronounced on the current examination.
Appendix is difficult to identify with certainty. At the posteromedial margin of the cecum a small amount of contrast material is seen within a small structure which could represent a small appendix or appendix stump. The margins are slightly
prominent, measuring up to 3 mm., Similar to prior examination. No adjacent or surrounding soft tissue stranding. Cannot entirely exclude low-grade or chronic appendicitis proper clinical setting.
-abdominal pain with nausea and vomiting
-hx large duodenal ulcer with partial obstruction with gastric and esophageal ulcers 10/2023- pt did not return for follow up EGD
-hypertensive urgency on admission
-CT with possible low grade or chronic appendicitis but report hx prior appe
-recent UTI
other med problems:
-GERD
-HTN
-HLD
- migraines (previous NSAID use and Fioricet)
-chronic HFpEF
- colon polyps
PLAN:
etiology of abdominal pain related to continued duodenal ulcer vs other
some improved pain this afternoon
ok for clear diet
CT as noted with possible chronic appendicitis but pt reports hx appe in past
plan for EGD in AM when BP improved to follow up on duodenal ulcer noted last year
reviewed with Dr. Szymanski
-
-
Thank you for consultation and allowing me to participate in the patient's care. Please call the telephone directory deliverer GI physician during the after hours with any questions or concerns.
--- NOTE | 2024-07-25 11:42 | HPS.HSE ---
Family Physician
-
Family Physician: Juan M Murphy MD
Chief Complaint
-
Abdominal pain, nausea
History of Present Illness
83-year-old female with past medical history of gastric/duodenal ulcer, duodenal stricture, CHF, hyperlipidemia, hypertension, migraine, UTI came to the hospital with nausea vomiting abdominal pain. per patient symptoms worse from past couple days
but per this has been going on for a while. Patient was diagnosed with peptic ulcer disease in 2023 with endoscopy and was instructed to follow-up with with GI for repeat endoscopy which per patient never did. She is also on daily
Protonix. Denies any recent sick contacts. Denies any chest pain, shortness of breath. Does report low-grade fever at home however afebrile here.
Medical History
Past Medical History
Past Medical History: Reports CHF, GERD, HTN, Hypercholesterolemia and Other (Duodenal ulcer, migraine)
Past Surgical History: Reports Appendectomy, Cholecystectomy and Other (Hernia repair)
Social History
Tobacco: Non-smoker
Alcohol: None
Family History
Family History: Not pertinent
Allergies / Home Medications
Allergies reflects when Allergies were last updated in [facility].
Home Medications with original date entered in [facility]
Allergy/Medication List:
Allergies
Allergy/AdvReac Type Severity Reaction Status Date / Time
cephalexin monohydrate (From Allergy Anaphylaxis Verified 07/25/24 02:11
Keflex)
clindamycin Allergy Anaphylaxis Verified 07/25/24 02:11
erythromycin base Allergy Anaphylaxis Verified 07/25/24 02:11
(Erythromycin Base)
gentamicin (Gentamicin) Allergy Anaphylaxis Verified 07/25/24 02:11
levofloxacin (From Levaquin) Allergy Anaphylaxis Verified 07/25/24 02:11
Penicillins Allergy Anaphylaxis Verified 07/25/24 02:11
Tetracyclines Allergy Anaphylaxis Verified 07/25/24 02:11
vancomycin Allergy Anaphylaxis Verified 07/25/24 02:11
ciprofloxacin (From Cipro) AdvReac Nausea / Verified 07/25/24 02:11
Vomiting /
Headache
codeine AdvReac Nausea / Verified 07/25/24 02:11
Vomiting /
Headache
iodine AdvReac Vomiting Verified 07/25/24 02:11
morphine AdvReac Shortness Verified 07/25/24 02:11
of Breath
mycin Allergy Anaphylaxis Uncoded 07/25/24 02:11
Home Medications
calcium carbonate (Oyster Shell Calcium 500) 500 mg PO DAILY Supplement 06/23/14
budesonide-formoterol HFA 160 mcg-4.5 mcg/actuation aerosol inhaler 1 puff inhalation R BID Lung/Breathing Issues 10/24/23
cholecalciferol (vitamin D3) 50 mcg (2,000 unit) tablet 50 mcg PO DAILY Supplement 10/24/23
losartan 50 mg tablet 50 mg PO DAILY Blood Pressure 10/24/23
xmdgtdpxfd-kwjrfppxmyfku-ijmnfgmf 50 mg-300 mg-40 mg capsule (Fioricet) 1 cap PO Q4HPRN PRN migraine 06/30/24
hydrochlorothiazide 50 mg tablet 50 mg PO DAILY Blood Pressure ##0 07/02/24
albuterol sulfate 90 mcg/actuation aerosol inhaler 2 puff inhalation R Q6HPRN PRN sob 07/25/24
carvedilol 12.5 mg tablet (Coreg) 12.5 mg PO DAILY Blood Pressure 07/25/24
pantoprazole 40 mg tablet,delayed release 40 mg PO DAILY Gastrointestinal Issue 07/25/24
Review of Systems
-
History Source: Patient and Family
A 12 point ROS was completed and negative except as noted: Yes
Abdomen/GI: Reports Abdominal Pain and Nausea
Physical Exam
Vital Signs
Vital Signs
Temp Pulse Resp BP Pulse Ox
98.3 F 75 22 172/66 100
07/25/24 02:12 07/25/24 10:21 07/25/24 10:21 07/25/24 10:21 07/25/24 08:00
Physical Exam
General: Well Nourished and No Apparent Distress
HEENT: NormoCephalic and Moist mucous membranes; No Anicteric
Respiratory: Clear and Non Labored Respirations; No Wheezes
Cardiac: S1/S2 and Regular Rhythm
Breast: Deferred by me
GI: Soft, Normal Bowel Sounds and Tender
Rectal: Deferred by Provider
Genito-urinary: No Wasserman
Musculoskeletal: No Edema
Neuro: Awake and Alert
Psych: Calm
Laboratory Results
-
07/25/24 03:20
07/25/24 03:20
Laboratory Results
Lactic Acid 0.7 mmol/L (0.7-2.0) 07/25/24 06:30
Total Bilirubin 0.6 mg/dl (0.2-1.3) 07/25/24 03:20
AST 18 U/L (14-36) 07/25/24 03:20
ALT 11 U/L (0-35) 07/25/24 03:20
Alkaline Phosphatase 85 U/L (38-126) 07/25/24 03:20
Lipase 152 U/L (23-300) 07/25/24 03:20
Data Reviewed
-
CT Scan: Report Reviewed by me, Discussed with Patient and Discussed with Family
Lab Data: Labs Reviewed by me, Discussed with Patient and Discussed with Family
Impression/Plan
-
Abdominal pain, nausea suspect secondary to ongoing peptic ulcer disease
EGD October 2023 with PUD, appears patient lost to follow-up with GI
Increase PPI to twice daily
GI evaluation
N.p.o. for now
CT with oral contrast noted, patient has history of appendectomy, discussed with radiology, finding is likely stump
Does appear to have positive calcium oxalate in urine however per spouse, her pain is similar to her previous hospitalizations. No impacted stone on CT scan
Compazine as needed
UA does not appear infectious, will monitor culture
Reports temp at home, afebrile here. Continue to monitor
Hypertension
Continue Coreg, HCTZ, losartan
History of CHF with preserved EF
Appears euvolemic
Monitor
Migraine
No NSAIDS
History of short-term memory loss per spouse
Suspect developing cognitive impairment
Continue to monitor
DVT prophylaxis
SCDs
CODE STATUS
DNR
Discussed with spouse in detail at bedside
I spent a total of 77 minutes with the patient or on the floor. More than 50% of this time involved counseling and coordination of care.
[2024-07-25] MEDS: SYMBICORT 160/4.5 MCG INHALER INH (12:56)
[2024-07-25] MEDS: NSS 1000 IV (13:59)
[2024-07-25] MEDS: NSS (PRESERVATIVE FREE) 10 ML IV ×2 (14:00→20:30)
[2024-07-25] MEDS: PROTONIX IV 40 MG IV ×2 (14:00→20:30)
[2024-07-25] MEDS: APRESOLINE 5 MG IV (15:54)
[2024-07-25] MEDS: FIORICET 1 TAB PO ×2 (18:45→22:22)
[2024-07-25] MEDS: SYMBICORT 160/4.5 MCG INHALER 1 PUFF INH (19:58)
--- NOTE | 2024-07-25 20:00 | PTCARENOTE ---
pt tachy w/ ambulation to bathroom. MP=730's
at 2030 pt reported chest pain 09/30 tight with pressure, and nauseous. pt states this pain is different then the abdominal pain she had earlier. OA=274/85 P=84. EKG completed. pt states migraine also 09/30. - already had Fioricet at 1845.
administered prn Compazine and lesley iv Protonix. informed TE[employer]COMMUNICATIONS EQUIPMENT INSTALLER Conrad. Labs ordered.
reevaluated Wf=646/70 p =77. CP and migraine the same. administered prn Fioricet. Updated TE[employer]COMMUNICATION[employer] EQUIPMENT INSTALLER Conrad. CXR ordered.
2340 chest pain the same 09/30, migraine the 10/31. Updated TE[employer]COMM[employer] EQUIPMENT INSTALLER Conrad. administered po toradol w/+eff. pt sleeping.
[2024-07-25] MEDS: COMPAZINE 5 MG IV (20:29)
--- NOTE | 2024-07-25 20:50 | W.PN.UPDATE ---
Update Note
Progress Note Update
RN reports patient c/o 5/10 chest pain and tachycardia 110. Patient seen and evaluated. States she feels tightness at the center of chest pointing towards mid epigastric area, and also noted tightness with deep breaths. states it started after the
Neb treatment. and herself states this is the first time she was having this type of discomfort. Also reports headaches /(hx of migraines). Denies pain radiating towards left chest, neck or arm, denies numbness tingling. No belching
noted. Reassured pain likely GI related. RN had done EKG and Troponin, will add CBC, BMP and Mag. IV Protonix IV Compazine now.
Patient continues to have the discomfort, will check chest xray.
EKG results noted. Repleted potassium
patient without any distress at this time.
[2024-07-25 21:10] LABS: Hematocrit 33.3 % (37.0-47.0); Hemoglobin 11.2 g/dL (12.0-16.0); Mean Corp Hgb Conc. 33.6 g/dL (33.0-37.0); Mean Corpuscular Hgb 33.7 pg (27.0-31.0); Mean Corpuscular Volume 100.3 fL (81.0-99.0); Mean Platelet Volume 8.4 fL (7.4-10.4); Platelet Count 285 10^3/uL (130-400); Red Blood Cell Count 3.32 10^6/uL (4.20-5.40); Red Cell Dist. Width 14.2 % (11.5-14.5); White Blood Cell Count 5.9 10^3/uL (4.8-10.8)
[2024-07-25 21:32] LABS: Blood Urea Nitrogen 12 mg/dl (7-17); Calcium 9.6 mg/dl (8.4-10.2); Carbon Dioxide 23 mmol/L (22-30); Chloride 114 mmol/L (98-107); Estimated Creatinine Clearance 56 ml/min; Glucose 73 mg/dl (70-99); Magnesium 1.6 mg/dl (1.6-2.3); Potassium 3.3 mmol/L (3.5-5.1); Sodium 142 mmol/L (135-145); eGFR > 60.00
[2024-07-25 21:44] LABS: Troponin I < 0.012 ng/ml
[2024-07-25] MEDS: KCL 40 MEQ PO (23:03)
[2024-07-26] VITALS (14 sets, daily range): BP systolic 18–165; BP diastolic 59–82; BMI 27.5; BMI 27.4
[2024-07-26] MEDS: TORADOL 10 MG PO (00:11)
[2024-07-26] MEDS: FIORICET 1 TAB PO ×2 (02:46→06:43)
--- NOTE | 2024-07-26 02:48 | PTCARENOTE ---
0248 no c/o chest pain - 'all gone'. migraine 4-06/30. - given prn Fioricet
[2024-07-26] MEDS: APRESOLINE 5 MG IV (05:45)
[2024-07-26 07:26] LABS: % Eosinophils 5.8 % (0-6); % Immature Granulocytes 0.2 % (0-0.5); % Lymphocytes 26.1 % (20.5-51.1); % Monocytes 10.6 % (1.7-9.3); % Neutrophils 56.3 % (42.2-75.2); Absolute Basophils 0.1 10^3/uL (0-0.2); Absolute Eosinophils 0.3 10^3/uL (0-0.7); Absolute Lymphocytes 1.3 10^3/uL (1.2-3.4); Absolute Monocytes 0.5 10^3/uL (0.1-0.6); Absolute Neutrophils 2.7 10^3/uL (1.4-6.5); Hematocrit 31.5 % (37.0-47.0); Hemoglobin 10.2 g/dL (12.0-16.0); Mean Corp Hgb Conc. 32.4 g/dL (33.0-37.0); Mean Corpuscular Hgb 32.9 pg (27.0-31.0); Mean Corpuscular Volume 101.6 fL (81.0-99.0); Mean Platelet Volume 8.6 fL (7.4-10.4); Nucleated Red Blood Cells % 0.4 %; Platelet Count 270 10^3/uL (130-400); White Blood Cell Count 4.8 10^3/uL (4.8-10.8)
[2024-07-26 07:35] LABS: INR 0.97; PT 13.4 Sec (11.4-14.6)
[2024-07-26 07:50] LABS: ALT (SGPT) < 10 U/L (0-35); AST (SGOT) 15 U/L (14-36); Albumin 3.5 g/dl (3.5-5.0); Alkaline Phosphatase 67 U/L (38-126); Blood Urea Nitrogen 11 mg/dl (7-17); Calcium 9.2 mg/dl (8.4-10.2); Carbon Dioxide 21 mmol/L (22-30); Chloride 117 mmol/L (98-107); Estimated Creatinine Clearance 56 ml/min; Glucose 81 mg/dl (70-99); Potassium 4.1 mmol/L (3.5-5.1); Sodium 143 mmol/L (135-145); Total Bilirubin 0.5 mg/dl (0.2-1.3); Total Protein 5.8 g/dl (6.3-8.2); eGFR > 60.00
[2024-07-26] MEDS: SYMBICORT 160/4.5 MCG INHALER 1 PUFF INH ×2 (08:21→19:48)
[2024-07-26] MEDS: ORETIC PO (08:29)
[2024-07-26] MEDS: VITAMIN D3 (cholecalciferol) PO (08:30)
[2024-07-26] MEDS: OSCAL CAL 500 PO (08:30)
[2024-07-26] MEDS: NSS (PRESERVATIVE FREE) 10 ML IV (08:32)
[2024-07-26] MEDS: PROTONIX IV 40 MG IV (08:32)
--- NOTE | 2024-07-26 13:01 | W.PN.HOSP.TC ---
Today's Communication/Plan
-
Monitor vital signs
see plan
Slowly improving
Status post EGD today
Continue with PPI twice daily
Assessment / Plan
Assessment / Plan
General: Well Nourished and No Apparent Distress
HEENT: NormoCephalic and Moist mucous membranes; No Anicteric
Respiratory: Clear and Non Labored Respirations; No Wheezes
Cardiac: S1/S2 and Regular Rhythm
GI: Soft, Normal Bowel Sounds and Tender
Genito-urinary: No Wasserman
Musculoskeletal: No Edema
Neuro: Awake and Alert
Psych: Calm
Abdominal pain, nausea suspect secondary to ongoing peptic ulcer disease
EGD October 2023 with PUD, appears patient lost to follow-up with GI
Increase PPI to twice daily
GI following
GI following, status post EGD with esophagitis, gastric ulcer, duodenal ulcer. PPI twice daily indefinitely. Patient will follow-up with GI outpatient.
CT with oral contrast noted, patient has history of appendectomy, discussed with radiology, finding is likely stump
Does appear to have positive calcium oxalate in urine however per spouse, her pain is similar to her previous hospitalizations. No impacted stone on CT scan
Compazine as needed
UA does not appear infectious,urine cx mixed sarah
Reports temp at home, afebrile here. Continue to monitor
Hypertension
Continue Coreg, HCTZ, losartan
History of CHF with preserved EF
Appears euvolemic
Monitor
Migraine
No NSAIDS
History of short-term memory loss per spouse
Suspect developing cognitive impairment
Continue to monitor
DVT prophylaxis
SCDs
CODE STATUS
DNR
Anticipated Discharge: Within 24 hours
Subjective/Interval History
-
Date of Service: July 26, 2024
feeling better
Objective Data
-
Labs:
Laboratory Results
07/26/24
07:03
WBC 4.8
Hgb 10.2 L
Hct 31.5 L
Plt Count 270
PT 13.4
INR 0.97
Sodium 143
Potassium 4.1
Chloride 117 H
Carbon Dioxide 21 L
BUN 11
Creatinine 0.7
Glucose 81
Calcium 9.2
Total Bilirubin 0.5
AST 15
ALT < 10
Alkaline Phosphatase 67
Vital Signs:
Vital Signs
Temp Pulse Resp BP Pulse Ox
97.3 F 63 22 165/65 100
07/26/24 11:18 07/26/24 11:30 07/26/24 11:30 07/26/24 11:30 07/26/24 11:30
I&O
07/25/24 07/26/24 07/27/24
06:59 06:59 06:59
Intake Total 2199 / 2199
Balance 2199 / 2199
[2024-07-26] MEDS: COZAAR 50 MG PO (13:40)
[2024-07-26] MEDS: COREG 12.5 MG PO (13:41)
--- NOTE | 2024-07-26 15:30 | PN.CDI ---
CDI
- -
CDI:
Physician Documentation Request
Admit Date: 07/25/24 11:53
Dear Doctor Stephon,
Clinical Indicators:
Patient admitted with peptic ulcer disease.
07/25, 07/26 Hydralazine 5mg IV x 2 doses.
BP trend:
07/25/24
02:12 07/25/24
02:43 07/25/24
03:00
Blood pressure 191/100 196/69 192/73
07/25/24
04:00 07/25/24
05:00
Blood pressure 201/70 195/72
Please clarify which, if any of the following, is a more accurate diagnosis reflecting the type and acuity of the documented hypertension:
Hypertensive Urgency - B/P is severely elevated (systolic > or = to 180 or diastolic > or = to 110) but there is no associated organ damage. Symptoms may include: headache, shortness of breath, nosebleeds, severe anxiety. Treatment usually consists
of addition to or adjusting of oral medications and does not generally necessitate hospitalization.
Essential primary hypertension only
Other (please specify)
Use of terms such as suspected, likely, concern for, or probable (associated with a specific diagnosis that is being evaluated, monitored, or treated as if it exists) are acceptable and can be coded in the inpatient setting, when documented at the
time of discharge.
Thank you,
FRANCO Tim RN
CDI Specialist
available via tiger text
Please use your independent medical judgment in providing your response.
--- NOTE | 2024-07-26 16:24 | CM ---
Patient was admitted under OBS, [employer] letter provided to patient, patient in a one story home, no steps to enter no dme, lives with with spouse home no needs when stable.
PCP: Dr. Murphy
Pharmacy: [facility].
Plan; Home when stable.
[2024-07-26] MEDS: PROTONIX 40 MG PO (20:07)
[2024-07-27 03:35] VITALS: BP 151/65
[2024-07-27 05:32] VITALS: BMI 27.5
[2024-07-27] MEDS: FIORICET 1 TAB PO ×2 (06:28→11:41)
[2024-07-27 07:12] VITALS: BP 164/66
[2024-07-27 07:41] LABS: % Basophils 0.8 % (0-2); % Immature Granulocytes 0.2 % (0-0.5); % Lymphocytes 22.7 % (20.5-51.1); % Neutrophils 61.3 % (42.2-75.2); Absolute Eosinophils 0.3 10^3/uL (0-0.7); Absolute Lymphocytes 1.1 10^3/uL (1.2-3.4); Absolute Monocytes 0.4 10^3/uL (0.1-0.6); Absolute Neutrophils 2.9 10^3/uL (1.4-6.5); Hematocrit 29.7 % (37.0-47.0); Hemoglobin 9.8 g/dL (12.0-16.0); Mean Corpuscular Hgb 33.6 pg (27.0-31.0); Mean Corpuscular Volume 101.7 fL (81.0-99.0); Mean Platelet Volume 8.8 fL (7.4-10.4); Nucleated Red Blood Cells % 0 %; Platelet Count 258 10^3/uL (130-400); Red Blood Cell Count 2.92 10^6/uL (4.20-5.40); Red Cell Dist. Width 14.1 % (11.5-14.5); White Blood Cell Count 4.8 10^3/uL (4.8-10.8)
[2024-07-27] MEDS: SYMBICORT 160/4.5 MCG INHALER 1 PUFF INH (07:46)
[2024-07-27 08:13] LABS: ALT (SGPT) < 10 U/L (0-35); AST (SGOT) 16 U/L (14-36); Albumin 3.2 g/dl (3.5-5.0); Alkaline Phosphatase 62 U/L (38-126); Blood Urea Nitrogen 12 mg/dl (7-17); Calcium 8.9 mg/dl (8.4-10.2); Carbon Dioxide 22 mmol/L (22-30); Chloride 114 mmol/L (98-107); Estimated Creatinine Clearance 56 ml/min; Glucose 86 mg/dl (70-99); Potassium 3.9 mmol/L (3.5-5.1); Sodium 142 mmol/L (135-145); Total Bilirubin 0.4 mg/dl (0.2-1.3); Total Protein 5.2 g/dl (6.3-8.2); eGFR > 60.00
[2024-07-27] MEDS: ORETIC 50 MG PO (08:40)
[2024-07-27] MEDS: PROTONIX 40 MG PO (08:40)
[2024-07-27] MEDS: OSCAL CAL 500 500 MG PO (08:40)
[2024-07-27] MEDS: VITAMIN D3 (cholecalciferol) 50 MCG PO (08:40)
[2024-07-27] MEDS: COREG 12.5 MG PO (08:40)
[2024-07-27] MEDS: COZAAR 50 MG PO (08:40)
[2024-07-27 11:19] VITALS: BP 141/59
--- NOTE | 2024-07-27 11:54 | W.PN.HOSP.TC ---
Today's Communication/Plan
-
Monitor vital signs
see plan
PPI twice daily
Discharge today
Time of discharge 37 minutes
Assessment / Plan
Assessment / Plan
General: Well Nourished and No Apparent Distress
HEENT: NormoCephalic and Moist mucous membranes; No Anicteric
Respiratory: Clear and Non Labored Respirations; No Wheezes
Cardiac: S1/S2 and Regular Rhythm
GI: Soft, Normal Bowel Sounds and Tender
Genito-urinary: No Wasserman
Musculoskeletal: No Edema
Neuro: Awake and Alert
Psych: Calm
Abdominal pain, nausea suspect secondary to ongoing peptic ulcer disease
EGD October 2023 with PUD, appears patient lost to follow-up with GI
Increase PPI to twice daily
GI following
GI following, status post EGD with esophagitis, gastric ulcer, duodenal ulcer. PPI twice daily indefinitely. Patient will follow-up with GI outpatient.
CT with oral contrast noted, patient has history of appendectomy, discussed with radiology, finding is likely stump
Does appear to have positive calcium oxalate in urine however per spouse, her pain is similar to her previous hospitalizations. No impacted stone on CT scan
Compazine as needed
UA does not appear infectious,urine cx mixed sarah
Reports temp at home, afebrile here. Continue to monitor
Hypertension
Hypertensive urgency on admission, resolved
Continue Coreg, HCTZ, losartan
History of CHF with preserved EF
Appears euvolemic
Monitor
Migraine
No NSAIDS
History of short-term memory loss per spouse
Suspect developing cognitive impairment
Continue to monitor
DVT prophylaxis
SCDs
CODE STATUS
DNR
Anticipated Discharge: Today
Subjective/Interval History
-
Date of Service: July 27, 2024
denies nausea
Objective Data
-
Labs:
Laboratory Results
07/27/24
07:07
WBC 4.8
Hgb 9.8 L
Hct 29.7 L
Plt Count 258
Sodium 142
Potassium 3.9
Chloride 114 H
Carbon Dioxide 22
BUN 12
Creatinine 0.7
Glucose 86
Calcium 8.9
Total Bilirubin 0.4
AST 16
ALT < 10
Alkaline Phosphatase 62
Vital Signs:
Vital Signs
Temp Pulse Resp BP Pulse Ox
98.4 F 61 16 141/59 98
07/27/24 11:19 07/27/24 11:19 07/27/24 11:19 07/27/24 11:19 07/27/24 11:19
I&O
07/26/24 07/27/24 07/28/24
06:59 06:59 06:59
Intake Total 2200 / 2200 540 / 540
Balance 2200 / 2200 540 / 540
--- NOTE | 2024-07-27 12:06 | W.DCSUMMARY ---
Discharge Summary
Discharge Data
Date of Admission: 07/25/24
Date of Discharge: 07/27/24
-
Pending Results: Yes
Hospital Course
83-year-old female with past medical history of peptic ulcer disease, hypertension, CHF, migraine, short-term memory loss came to the hospital with abdominal pain and nausea suspect was secondary to ongoing peptic ulcer disease. Previously she was
instructed to follow-up with GI for repeat endoscopy however patient lost to follow-up and also was not taking her Protonix which appears to be the reason of her worsening symptoms. She underwent EGD this admission which showed esophagitis, gastric
ulcer and duodenal ulcer. She was instructed to continue PPI twice daily indefinitely by GI. GI also recommended her to follow-up with them closely outpatient for repeat EGD. Patient was able to tolerate regular diet prior to discharge. Since
her symptoms continue to improve and she had no further pain, she was then discharged home with instructions to follow-up with all her physicians outpatient.
Discharge Plan
-
Patient Disposition: Home (Routine Discharge)
Discharge Diagnosis/Procedures: Abdominal pain, nausea suspect secondary to ongoing peptic ulcer disease
s/p EGD
Esophagitis
Hypertensive urgency
Diet: Low Residue
Activity: No restrictions
Driving Restrictions: As prior to admission
Bathing Restrictions: None
Activity Restrictions/Additional Instructions:
Continue with Protonix 40 mg twice daily indefinitely
No ibuprofen, naproxen, or other non-steroidal anti-inflammatory drugs indefinitely.
Referrals:
Jenny Byers MD [Active, Gastroenterology] - in one to two weeks
Juan M Murphy MD [Family Provider, Family Practice] - in less than 1 week
Prescriptions:
Continued
calcium carbonate [Oyster Shell Calcium 500] 500 MG tablet
500 mg PO DAILY
losartan 50 mg tablet
50 mg PO DAILY
cholecalciferol (vitamin D3) 50 mcg (2,000 unit) Tablet
50 mcg PO DAILY
budesonide-formoterol 160-4.5 mcg/actuation HFA aerosol inhaler
1 puff INHALATION R BID
[id number]-kpmbfbzvtqped-ybfu [Fioricet] 50-300-40 mg Capsule
1 cap PO Q4HPRN PRN (Reason: migraine)
hydrochlorothiazide 50 mg Tablet
50 mg PO DAILY Qty: 0
carvedilol [Coreg] 12.5 mg Tablet
12.5 mg PO DAILY
albuterol sulfate 90 mcg/actuation Hfa Aerosol Inhaler
2 puff INHALATION R Q6HPRN PRN (Reason: sob)
pantoprazole 40 mg tablet,delayed release (DR/EC)
40 mg PO BID Qty: 60 0RF
Discharge Orders:
Discharge Patient (As Directed); Ordered 07/27/24
Ordered By: Blake Szymanski
Discharge Date and Time
Discharge Date/Time: 07/27/24 13:30
Print Language: DANISH
--- NOTE | 2024-07-27 12:21 | CM ---
[employer] letter completed home no needs.
Plan; Home no needs.
== END 2024-07-27 13:30 | disposition home or self-care (01) ==
LOC: 4 WEST ACU 11:53
PROVIDERS: Nurse Practitioner Adult Health; Nurse Practitioner Gerontology; Physician Assistant; ADMITTING PHYSICIAN Internal Medicine; CONSULT PHYSICIAN Internal Medicine Gastroenterology; EMERGENCY PHYSICIAN Student in an Organized Health Care Education/Training Program; FAMILY PHYSICIAN Family Medicine
PROC: 0DB98ZX Excision of Duodenum, Via Natural or Artificial Opening Endoscopic, Diagnostic (ICD-10-PCS; 2024-07-26)
PROC: 0DB68ZX Excision of Stomach, Via Natural or Artificial Opening Endoscopic, Diagnostic (ICD-10-PCS; 2024-07-26)
DX: K25.9 Gastric ulcer, unspecified as acute or chronic, without hemorrhage or perforation (principal); R10.9 Unspecified abdominal pain; R11.2 Nausea with vomiting, unspecified; K22.2 Esophageal obstruction; K26.9 Duodenal ulcer, unspecified as acute or chronic, without hemorrhage or perforation; K31.5 Obstruction of duodenum; I11.0 Hypertensive heart disease with heart failure; Z66 Do not resuscitate; I16.0 Hypertensive urgency
CPT/HCPCS: 43239; 88305; 70450; 71045; 74176; 80048; 80053; 81003; 81015; 83605; 83690; 83735; 84484; 85025; 85027; 85610; 87086; 88342; 93005; 94640; 96374; 96375; 99285; G0378

== ENCOUNTER 2024-09-21 13:00 | Emergency (ER) | payer MEDICARE, OTHER, SELFPAY ==
[2024-09-21 13:03] VITALS: BP 173/82
[2024-09-21 13:15] VITALS: BP 165/70
[2024-09-21 13:20] VITALS: BMI 29.8
--- NOTE | 2024-09-21 13:56 | ED.GENMED ---
History of Present Illness
<Royce Devlin MD - Last Filed: 09/21/24 17:07>
General
Chief Complaint: Insect Sting
Time Seen by Provider: 09/21/24 13:28
<Leena Granger DO, Resident - Last Filed: 09/22/24 05:59>
General
Source: patient and significant other
Exam Limitations: none
Nursing documentation reviewed up to this point in time: agreed with
History of Present Illness
History of Present Illness:
Patient is an 84 year old female with PMH of hypertension and migraines, presenting with an insect sting. Patient was reaching into a planter to remove leaves when she was stung by a wasp/bee on her right thumb. The insect was not visualized.
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 Patient did not take any Benadryl at home because Benadryl is known to trigger her migraines. Patient denies SOB, but feels like her throat is sore and her voice
is strained. Patient denies all other ROS.
Past History
<Leena Granger DO, Resident - Last Filed: 09/22/24 05:59>
Past History
ED Past Medical History: Asthma, HTN and Other (Migraines)
ED Past Surgical History: Orthopedic and Other (Hernia)
Social History
Tobacco: Non-smoker
Personal:
Living: with family
Review of Systems
<Leena Granger DO, Resident - Last Filed: 09/22/24 05:59>
Review of Systems
Allergies reviewed?: Yes
All Other Systems: ROS reviewed and negative except as documented in HPI and ROS
Constitutional: Reports no symptoms
EENT: Reports sore throat and other (hoarse voice)
Respiratory: Reports no symptoms
Cardiac: Reports no symptoms
ABD/GI: Reports no symptoms
: Reports no symptoms
Musculoskeletal: Reports no symptoms
Skin: Reports no symptoms
Neurological: Reports no symptoms
Endocrine: Reports no symptoms
Hematologic/Lymphatic: Reports no symptoms
Psychiatric: Reports no symptoms
Phy Exam
<Leena Granger DO, - Last Filed: 09/22/24 05:59>
General Physical Exam
General Presentation: well appearing and no apparent distress
General age: appears stated age
General Skin: warm and dry
General Habitus: normal
General Mental: alert
Cardiovascular Exam
Cardiovascular Exam: regular rate/rhythm
Heart Sounds: normal
Pulmonary Exam
Pulmonary Exam: lungs clear and no respiratory distress
Gastrointestinal Exam
Gastrointestinal Exam: normal bowel sounds
Skin Exam
Skin Exam: other (right thumb red and swollen in area of sting)
Psychiatric Exam
Psychiatric Exam: normal mood/affect
Course
<Royce Devlin MD - Last Filed: 09/21/24 17:07>
Orders/Labs/Results
Orders:
Orders
09/21/24 13:53
Acetaminophen [Tylenol] 650 mg PO NOW STA
Dexamethasone Sod Phosphate [Decadron] 6 mg IV NOW STA
Diphenhydramine [Benadryl] 12.5 mg IV NOW STA
Famotidine [Pepcid] 20 mg IV NOW STA
09/21/24 15:29
Butalb/Acetaminophen/Caffeine [Fioricet] 1 tab PO NOW STA
Vital Signs
Initial and Last Documented VS:
Initial Vital Signs
Temp Pulse Resp BP Pulse Ox
98.4 F 67 16 173/82 99
09/21/24 13:03 09/21/24 13:03 09/21/24 13:03 09/21/24 13:03 09/21/24 13:03
Last Documented Vital Signs
Temp Pulse Resp BP Pulse Ox
98.4 F 73 17 171/62 99
08/01/25 13:03 09/21/24 16:59 09/21/24 16:59 09/21/24 17:03 09/21/24 17:04
<Lenea Granger DO, Resident - Last Filed: 09/22/24 05:59>
Orders/Labs/Results
Orders:
Orders
09/21/24 13:53
Acetaminophen [Tylenol] 650 mg PO NOW STA
Dexamethasone Sod Phosphate [Decadron] 6 mg IV NOW STA
Diphenhydramine [Benadryl] 12.5 mg IV NOW STA
Famotidine [Pepcid] 20 mg IV NOW STA
09/21/24 15:29
Butalb/Acetaminophen/Caffeine [Fioricet] 1 tab PO NOW STA
Vital Signs
Initial and Last Documented VS:
Initial Vital Signs
Temp Pulse Resp BP Pulse Ox
98.4 F 67 16 173/82 99
09/21/24 13:03 09/21/24 13:03 09/21/24 13:03 09/21/24 13:03 09/21/24 13:03
Last Documented Vital Signs
Temp Pulse Resp BP Pulse Ox
98.4 F 73 17 171/62 99
09/21/24 13:03 09/21/24 16:59 09/21/24 16:59 09/21/24 17:03 09/21/24 17:04
<Leena Granger DO, Resident - Last Filed: 09/22/24 05:59>
MDM/Problems Addressed
Differential Diagnosis Includes:
wasp sting
MDM/Problems Addressed:
Given patient's history of anaphylactic reactions to wasp/bee stings, we gave the patient 12.5 benadryl IV, 20mg pepcid IV, 6mg decadron IV and 650mg tylenol PO. Patient was reporting the start of a migraine, so we ordered her home med at [facility]
for migraine management
<Leena Granger DO, Resident - Last Filed: 09/22/24 05:59>
*Pulse Oximetry
SaO2: 100
Oxygen Mode of Delivery: Room air
Patient hypoxic: no
*Critical Care Note
Total Time (30-74mins, 75-104mins- exclusive of procedures): Not Applicable
<Royce Devlin MD - Last Filed: 09/21/24 17:07>
Update Note
Update Note:
Patient is remained stable and nontoxic. Only complaint of local pain. No other symptoms. Stable for discharge. Does not need further steroids at this time
ED Attending Note
<Royce Devlin MD - Last Filed: 09/21/24 17:07>
ED Attending Note
Patient seen and examined by attending physician: Yes
I performed a history and physical exam of patient and discussed management with resident, I reviewed resident's note and agree with documented findings and plan of care.: Yes
ED Attending Note:
84-year-old female. Some sting to her thumb while working in the garden. Did not witness the insect or bee. History of anaphylactic reaction. Normally would have taken an EpiPen but she did not have it. Symptoms mild throat tightness or scratch
but very minimal in nature. Denies general hives wheezing shortness of breath or other complaints at this time.
On exam patient is nontoxic in no distress. Stable vital signs. Good pulse ox. Lungs clear and equal. Heart regular rate and rhythm no murmur. She has no general hives. Her airway is clear. No drooling no stridor. No hoarseness. She has
mild swelling to the right thumb with erythema and tenderness.
Impression: At this time this appears to all be local reaction. However with her history would recommend H1 maico, H2 maico and steroids. No indication for epinephrine at this time. She is very reluctant to take Benadryl because of a issue
with that although not allergic reaction. She is okay with a very low dose. Continued observation
<Leena Granger DO, Resident - Last Filed: 09/22/24 05:59>
-
Portions of this chart may have been created with voice recognition software.� Occasional wrong word or��sound alike� substitutions may have occurred due to the inherent limitations of voice recognition software.
Discharge Plan
Departure
Patient Disposition: Home (Routine Discharge)
Date of Disposition: 09/21/24
Time of Disposition: 17:07
Patient with high blood pressure during this ER visit?: Yes
Discharge Problem:
Local bee/wasp sting, History of anaphylactic reaction
Instructions: Insect Bites and Stings (DC), BLOOD PRESSURE
Prescriptions:
No Action
calcium carbonate [Oyster Shell Calcium 500] 500 MG tablet
500 mg PO DAILY
losartan 50 mg tablet
50 mg PO DAILY
cholecalciferol (vitamin D3) 50 mcg (2,000 unit) Tablet
50 mcg PO DAILY
budesonide-formoterol 160-4.5 mcg/actuation HFA aerosol inhaler
1 puff INHALATION R BID
[id number]-[id number]-ultn [Fioricet] 50-300-40 mg Capsule
1 cap PO Q4HPRN PRN (Reason: migraine)
hydrochlorothiazide 50 mg Tablet
50 mg PO DAILY Qty: 0
carvedilol [Coreg] 12.5 mg Tablet
12.5 mg PO DAILY
albuterol sulfate 90 mcg/actuation Hfa Aerosol Inhaler
2 puff INHALATION R Q6HPRN PRN (Reason: sob)
pantoprazole 40 mg tablet,delayed release (DR/EC)
40 mg PO BID Qty: 60 0RF
Referrals:
Juan M Murphy MD [Family Provider, Family Practice] - Follow up in 2-3 days
Interventions
Interventions:
*Risk Screen - Suicide Last Done: 09/21/24 13:07
*General Assessment Last Done: 09/21/24 13:34
*Neglect/Abuse Screening Last Done: 09/21/24 13:07
*ED- Fall Risk Assessment Last Done: 09/21/24 13:34
*ED COVID-19 Vaccine History Last Done: 09/21/24 13:34
*Nursing Disposition Last Done: 09/21/24 17:10
ED-Skin Assessment Last Done: 09/21/24 13:20
ED- Pulmonary Assessment Last Done: 09/21/24 13:20
Discharge Date and Time
Discharge Date/Time: 09/21/24 17:10
Print Language: COMORAN
[2024-09-21 14:02] VITALS: BP 144/64
[2024-09-21] MEDS: BENADRYL 12.5 MG IV (14:21)
[2024-09-21] MEDS: DECADRON 6 MG IV (14:22)
[2024-09-21] MEDS: PEPCID 20 MG IV (14:22)
[2024-09-21] MEDS: TYLENOL 650 MG PO (14:22)
[2024-09-21] MEDS: FIORICET 1 TAB PO (15:35)
[2024-09-21 17:03] VITALS: BP 171/62
== END 2024-09-21 17:10 | disposition home or self-care (01) ==
LOC: EMR 13:00
PROVIDERS: EMERGENCY PHYSICIAN Emergency Medicine; FAMILY PHYSICIAN Family Medicine
DX: T63.461A Toxic effect of venom of wasps, accidental (unintentional), initial encounter (principal); I10 Essential (primary) hypertension; G43.909 Migraine, unspecified, not intractable, without status migrainosus; J45.909 Unspecified asthma, uncomplicated; Z91.030 Bee allergy status; Y93.H2 Activity, gardening and landscaping; Y92.096 Garden or yard of other non-institutional residence as the place of occurrence of the external cause
CPT/HCPCS: 99284; 96374; 96375 ×2

== ENCOUNTER 2024-10-18 22:36 | Inpatient (IN) | payer MEDICARE, OTHER, SELFPAY ==
[2024-10-18] VITALS (8 sets, daily range): BP systolic 164–209; BP diastolic 68–103; PULSE 72–88; BMI 31.0
[2024-10-18 17:53] LABS: Hematocrit 35.9 % (37.0-47.0); Hemoglobin 11.8 g/dL (12.0-16.0); Mean Corp Hgb Conc. 32.9 g/dL (33.0-37.0); Mean Corpuscular Volume 100.8 fL (81.0-99.0); Nucleated Red Blood Cells % 0 %; Platelet Count 297 10^3/uL (130-400); Red Cell Dist. Width 15.2 % (11.5-14.5)
[2024-10-18 17:54] LABS: Urine Character Clear (Clear)
[2024-10-18] MEDS: ZOFRAN 4 MG IV ×2 (17:57→23:57)
[2024-10-18 18:09] LABS: ALT (SGPT) 13 U/L (0-35); AST (SGOT) 21 U/L (14-36); Albumin 4.3 g/dl (3.5-5.0); Alkaline Phosphatase 91 U/L (38-126); Blood Urea Nitrogen 17 mg/dl (7-17); Calcium 9.6 mg/dl (8.4-10.2); Carbon Dioxide 22 mmol/L (22-30); Chloride 109 mmol/L (98-107); Estimated Creatinine Clearance 51 ml/min; Glucose 96 mg/dl (70-99); Lipase 297 U/L (23-300); Potassium 4.7 mmol/L (3.5-5.1); Sodium 136 mmol/L (135-145); Total Protein 6.5 g/dl (6.3-8.2); eGFR > 60.00
--- NOTE | 2024-10-18 18:09 | ED.GENMED ---
History of Present Illness
General
Chief Complaint: Abdominal Symptoms
Time Seen by Provider: 10/18/24 17:51
History of Present Illness
History of Present Illness:
84-year-old female with history of hypertension, hyperlipidemia, and prior duodenal ulcer presents to the emergency department for evaluation of abrupt onset of right-sided abdominal pain associated with nausea.. Denies any vomiting. She is also
concerned that her blood pressure has been markedly elevated since her symptoms began. Pain seems to wax and wane but never fully resolves. Prior abdominal surgery includes cholecystectomy, appendectomy, hysterectomy, and ventral hernia repair
Past History
Past History
ED Past Medical History: Asthma, HTN and Other (Migraines)
ED Past Surgical History: Orthopedic and Other (Hernia)
Social History
Tobacco: Non-smoker
Personal:
Living: with family
Review of Systems
Review of Systems
Allergies reviewed?: Yes
All Other Systems: ROS reviewed and negative except as documented in HPI and ROS
Phy Exam
Physical Exam
Physical Exam:
GEN: Well appearing, NAD, WDWN
HEENT: Oral mucosa moist, no scleral icterus
Cardiac: Regular rate
Lung: No respiratory distress, no tachypnea
Abdomen: Soft, grossly nontender, no rigidity
MSK: No gross deformity or injuries
Skin: Good color, no pallor or jaundice, no rashes
Neuro: AO x3, moves all extremities freely
Psych: Calm, cooperative
Course
Orders/Labs/Results
Orders:
Orders
10/18/24 Dinner
Clear Liquid
10/18/24 17:43
Complete Blood Count/With Diff Urgent
Comprehensive Metabolic Panel Urgent
Lipase Urgent
Urinalysis Reflex To Culture Urgent
Date Specimen was Collected: 10/18/24
Time Specimen was Collected: 17:37
Urine Microscopic Reflex Cult Urgent
Urine Culture Urgent
AISHWARYA Source: U
Specimen Description:
Date Specimen was Collected: 10/18/24
Time Specimen was Collected: 17:37
10/18/24 17:56
Ondansetron Injectable [Zofran] 4 mg .ROUTE .STK-MED ONE
Ondansetron Injectable [Zofran] 4 mg IV NOW STA
10/18/24 18:16
CT Abd/pel (oral only)-DH Only Stat
Comment:
Reason For Exam: R flank/abd pain
HYDROmorphone [Dilaudid] 0.25 mg IV NOW STA
Iohexol [Omnipaque] See Protocol PO NOW STA
10/18/24 18:43
HYDROmorphone [Dilaudid] 0.5 mg .ROUTE .STK-MED ONE
10/18/24 18:49
HYDROmorphone [Dilaudid] 0.5 mg IV NOW STA
10/18/24 21:03
0.9% Sodium Chloride 1000 ml [Nss] 1,000 ml IV BOLUS
Metoclopramide [Reglan] 10 mg IV NOW STA
10/18/24 21:59
Admit/Transfer Patient As Directed
Co-Sign Provider:
Level of Care: Inpatient admission
Assign to:: Medical/Surgical
Physician / Group: Mya
Diagnosis: duodenitis
Reason for Hospitalization: duodenitis
Expected length of stay greater than two midnights?: Yes
ELOS- Estimated Length of Stay in days: 2
I certify the patient meets the requirements for IP care: Yes
PRN Pain Medication Management As Directed
May give lesser potent ordered pain med per pt: Yes
preference::
Protocol:: Medication orders for pain may be administered in a
manner that supports deferring to patient preference
when the pt is:
- Requesting an ordered lesser potent pain medication.
Least to most potent pain medications are defined
as: acetaminophen < NSAID < tramadol < opioids
(morphine, oxycodone, hydromorphone).
- Requesting a lesser dose of the same medication IF
ORDERED.
- Requesting a less intrusive route of administration
if both routes are prescribed by the provider (PO <
IV).
10/18/24 22:00
Code Status As Directed
Resuscitation Status: Full Code
10/18/24 22:03
HydrALAZINE [Apresoline] 10 mg PO TIDPRN PRN
Mag Hydrox/Al Hydrox/Simeth [Maalox] 30 ml PO NOW STA
Pantoprazole [Protonix IV] 80 mg IV NOW STA
10/18/24 22:05
Code Status As Directed
Resuscitation Status: Do not resuscitate
Reached after discussion with pt or family/Healthcare POA: Yes
10/18/24 22:20
0.9% Sodium Chloride [Nss (Preservative Free)] 20 ml IV NOW STA
10/18/24 22:59
Acetaminophen [Tylenol] 650 mg PO Q6HPRN PRN
Albuterol [ProAIR HFA INHALER] 2 puff INH R Q6HPRN PRN sob
Dextrose 5%/0.45%Sodchl 1000ML [D5/0.45%NaCl] 1,000 ml IV 60 mls/hr
HYDROmorphone [Dilaudid] 0.25 mg IV Q3HPRN PRN
Ondansetron Injectable [Zofran] 4 mg IV Q6HPRN PRN
10/18/24 22:59
Consult Notification Routine
Specialty to Notify: Gastroenterology
GASTROINTESTINAL CONSULT Routine
Consulting Provider: Isac Tillman
Was physician already notified: No
Reason for consult: Acute duodenitis. H/O PUD with duodenal ulcer on most recent EGD. No GIB
Activity As Directed
Activity Level: With Assistance
INT (Intravenous Needle Therapy) As Directed
Comment: Place 2 IV catheters of the largest bore possible until stable
Orthostatic Vital Signs As Directed
Orthostatic VS Frequency: Now
Comment: then every four hours for twenty-four hours
Pneumatic Compression Sleeves As Directed
Type: Knee high
Stool for occult blood [Hemetest Stools] As Directed
Vital Signs As Directed
Frequency: Per unit guidelines
DX Deep Vein Thrombosis Video Routine
10/18/24 23:04
Butalb/Acetaminophen/Caffeine [Fioricet] 1 tab PO Q4HPRN PRN
10/19/24 06:00
Basic Metabolic Panel IN AM
Complete Blood Count/No Diff IN AM
10/19/24 08:00
Budesonide/Formoterol 160/4.5 [Symbicort 160/4.5 Mcg Inhaler] 1 puff INH R BID
Carvedilol [Coreg] 12.5 mg PO DAILY
Hydrochlorothiazide [Oretic] 50 mg PO DAILY
Losartan [Cozaar] 50 mg PO DAILY
Pantoprazole [Protonix IV] 40 mg IV BID
Abnormal Lab Results
10/18/24
17:43
RBC 3.56 L 10^6/uL
(4.20-5.40)
Hgb 11.8 L g/dL
(12.0-16.0)
Hct 35.9 L %
(37.0-47.0)
MCV 100.8 H fL
(81.0-99.0)
MCH 33.1 H pg
(27.0-31.0)
MCHC 32.9 L g/dL
(33.0-37.0)
RDW 15.2 H %
(11.5-14.5)
Absolute Lymphs (auto) 0.8 L 10^3/uL
(1.2-3.4)
Neutrophils % 77.9 H %
(42.2-75.2)
Lymphocytes % 12.0 L %
(20.5-51.1)
Chloride 109 H mmol/L
(98-107)
Ur Occult Blood Reflex 1+ A
(Negative)
Leukocyte Esterase Rfl 2+ A
(Negative)
Urine RBC 3-6 A /HPF
(0-2)
Urine Bacteria (Reflex) Moderate A
(Negative)
Urine Albumin (Reflex) 2+ A
(Neg - Trace)
10/18/24 17:43
10/18/24 17:43
Vital Signs
Initial and Last Documented VS:
Initial Vital Signs
Temp Pulse Resp BP Pulse Ox
98.1 F 73 18 206/103 100
10/18/24 16:42 10/18/24 16:42 10/18/24 16:42 10/18/24 16:42 10/18/24 16:42
Last Documented Vital Signs
Temp Pulse Resp BP Pulse Ox
98.1 F 63 22 169/68 99
10/18/24 16:42 10/18/24 21:30 10/18/24 21:30 10/18/24 21:20 10/18/24 21:15
MDM/Problems Addressed
MDM/Problems Addressed:
Imaging reveals duodenitis no evidence for obstruction, given persistent pain and lack of clear etiology will admit for IV fluids and antiemetics, no indication for antibiotics at this time
*Pulse Oximetry
SaO2: 100
Oxygen Mode of Delivery: Room air
Patient hypoxic: no
*Critical Care Note
Total Time (30-74mins, 75-104mins- exclusive of procedures): Not Applicable
ED Attending Note
-
Portions of this chart may have been created with voice recognition software.� Occasional wrong word or��sound alike� substitutions may have occurred due to the inherent limitations of voice recognition software.
Discharge Plan
Departure
Patient Disposition: Admit
Date of Disposition: 10/18/24
Time of Disposition: 21:16
Admit to: Med/Surg
Presentation/result/management discussed w/ accepting MD/DO: Hospitalist
Discharge Problem:
Duodenitis
Interventions
Interventions:
*Risk Screen - Suicide Last Done: 10/18/24 16:42
*General Assessment Last Done: 10/18/24 16:42
*Neglect/Abuse Screening Last Done: 10/18/24 16:42
*Nursing Disposition Last Done: 10/18/24 23:11
BQ-Znxqbp-Ghhzgxiadh Assessment Last Done: 10/18/24 17:35
Discharge Date and Time
Discharge Date/Time: 10/18/24 23:11
[2024-10-18] MEDS: OMNIPAQUE 50 ML PO (18:20)
[2024-10-18] MEDS: DILAUDID 0.25 MG IV (18:20)
[2024-10-18] MEDS: DILAUDID 0.5 MG IV (18:51)
[2024-10-18] MEDS: NSS 1000 IV (21:17)
[2024-10-18] MEDS: REGLAN 10 MG IV (21:17)
--- NOTE | 2024-10-18 21:36 | HPS.HSE ---
Family Physician
-
Family Physician: NOT KNOW UNKNOWN - PT DOES
Chief Complaint
-
Abdominal pain
History of Present Illness
This is a 84-year-old female with past medical history of gastritis, gastric and duodenal ulcer, esophagitis, hypertension and hyperlipidemia presenting to the emergency department with abrupt onset of right-sided abdominal pain with associated
nausea.
Patient and spouse report acute onset of right upper quadrant abdominal pain starting at around 2 PM. She woke up in usual state of health. She had a usual lunch. She reported that the pain is a burning sensation was initially a 10 out of 10 with
radiation to the periumbilical region. She reports nausea but no vomiting. She denied having any diarrhea. She denied any fevers or chills. Patient denies any flank discomfort or urinary discomfort.
She denies any recent melena. She denies any hematochezia.
She has no history of peptic ulcer disease and does continue to take NyQuil which contains ibuprofen for migraines according to family. She only takes PPI once daily as well. She denies any recent dyspepsia. She denies any alcohol use.
Family reported that her blood pressure jeniffer to 190 systolic likely due to pain and she came to the emergency department for evaluation.
Patient was recently admitted and discharged in July for abdominal pain. At the time she had an EGD which showed esophagitis gastric ulcer and duodenal ulcer. She was instructed to continue on PPI twice daily indefinitely. NSAIDs with
discouraged. She was instructed to follow-up with GI closely. She had previous episode in the past and instructed to follow-up with GI but she was lost to follow-up.
In the emergency department she was afebrile, blood pressure was 206/100 with a pulse rate of 73 and she was satting 98% on room air. Hemoglobin is 11.8 which is same as prior with normal platelet count. She has a normal white count. Electrolytes
were all within normal limit with normal BUN/creatinine. He has normal LFTs and normal lipase. UA positive with likely contamination but she shows no urinary symptoms.
CT of the abdomen pelvis showing moderate to severe thickening of the wall of the duodenal bulb. There also appears to be moderate wall thickening involving the second and proximal third portions of the duodenum. There is stranding of the
surrounding fat. These findings very likely represent duodenitis.
Medical History
Past Medical History
Past Medical History: Reports CHF, GERD, HTN, Hypercholesterolemia and Other (Duodenal ulcer, migraine)
Past Surgical History: Reports Appendectomy, Cholecystectomy and Other (Hernia repair)
Social History
Tobacco: Non-smoker
Alcohol: None
Family History
Family History: Not pertinent
Allergies / Home Medications
Allergies reflects when Allergies were last updated in [facility].
Home Medications with original date entered in [facility]
Allergy/Medication List:
Allergies
Allergy/AdvReac Type Severity Reaction Status Date / Time
cephalexin monohydrate (From Allergy Anaphylaxis Verified 07/25/24 02:11
Keflex)
clindamycin Allergy Anaphylaxis Verified 07/25/24 02:11
erythromycin base Allergy Anaphylaxis Verified 07/25/24 02:11
(Erythromycin Base)
gentamicin (Gentamicin) Allergy Anaphylaxis Verified 07/25/24 02:11
levofloxacin (From Levaquin) Allergy Anaphylaxis Verified 07/25/24 02:11
Penicillins Allergy Anaphylaxis Verified 07/25/24 02:11
Tetracyclines Allergy Anaphylaxis Verified 07/25/24 02:11
vancomycin Allergy Anaphylaxis Verified 07/25/24 02:11
ciprofloxacin (From Cipro) AdvReac Nausea / Verified 07/25/24 02:11
Vomiting /
Headache
codeine AdvReac Nausea / Verified 07/25/24 02:11
Vomiting /
Headache
iodine AdvReac Vomiting Verified 07/25/24 02:11
morphine AdvReac Shortness Verified 07/25/24 02:11
of Breath
mycin Allergy Anaphylaxis Uncoded 07/25/24 02:11
Home Medications
calcium carbonate (Oyster Shell Calcium 500) 500 mg PO DAILY Supplement 06/23/14
budesonide-formoterol HFA 160 mcg-4.5 mcg/actuation aerosol inhaler 1 puff inhalation R BID Lung/Breathing Issues 10/24/23
cholecalciferol (vitamin D3) 50 mcg (2,000 unit) tablet 50 mcg PO DAILY Supplement 10/24/23
losartan 50 mg tablet 50 mg PO DAILY Blood Pressure 10/24/23
xsgtejwmrv-cetiscblaqmle-futkrpzr 50 mg-300 mg-40 mg capsule (Fioricet) 1 cap PO Q4HPRN PRN migraine 06/30/24
hydrochlorothiazide 50 mg tablet 50 mg PO DAILY Blood Pressure ##0 07/02/24
albuterol sulfate 90 mcg/actuation aerosol inhaler 2 puff inhalation R Q6HPRN PRN sob 07/25/24
carvedilol 12.5 mg tablet (Coreg) 12.5 mg PO DAILY Blood Pressure 07/25/24
pantoprazole 40 mg tablet,delayed release 40 mg PO DAILY Gastrointestinal Issue 07/25/24
Review of Systems
-
History Source: Patient and Family
A 12 point ROS was completed and negative except as noted: Yes
Abdomen/GI: Reports Abdominal Pain and Nausea
Physical Exam
Vital Signs
Vital Signs
Temp Pulse Resp BP Pulse Ox
98.1 F 73 18 206/103 100
10/18/24 16:42 10/18/24 16:42 10/18/24 16:42 10/18/24 16:42 10/18/24 18:10
Physical Exam
General: Well Nourished and No Apparent Distress
HEENT: NormoCephalic and Moist mucous membranes; No Anicteric
Respiratory: Clear and Non Labored Respirations; No Wheezes
Cardiac: S1/S2 and Regular Rhythm
Breast: Deferred by me
GI: Soft, Normal Bowel Sounds and Tender
Rectal: Deferred by Provider
Genito-urinary: No Wasserman
Musculoskeletal: No Edema
Neuro: Awake and Alert
Psych: Calm
Laboratory Results
-
10/18/24 17:43
10/18/24 17:43
Laboratory Results
Total Bilirubin 0.5 mg/dl (0.2-1.3) 10/18/24 17:43
AST 21 U/L (14-36) 10/18/24 17:43
ALT 13 U/L (0-35) 10/18/24 17:43
Alkaline Phosphatase 91 U/L (38-126) 10/18/24 17:43
Lipase 297 U/L (23-300) 10/18/24 17:43
Data Reviewed
-
CT Scan: Report Reviewed by me
Lab Data: Labs Reviewed by me
Old Records: Reviewed
Impression/Plan
-
IMPRESSION:
84-year-old coming in with abrupt onset of right upper quadrant abdominal discomfort. She has nausea without vomiting. No diarrhea. No signs of an acute infectious process though U/A appears contaminated. CT scan consistent with duodenal bulb
inflammation/duodenitis with surrounding fat stranding. No obstruction. No obvious bleeding or ulcer noted. She is hypertensive but otherwise hemodynamically stable. CBC is stable.
PLAN:
Abdominal pain -suspect acute duodenitis versus new or worsening duodenal ulcer. No evidence of bleeding
- Admit to MedSurg
-Clear liquid diet
-Antiemetics
-PPI IV twice daily
- Orthostatic vital sign, guaiac all stools
- Holding all NSAIDs
- GI consultation
HTN
- Continue patient's carvedilol, HCTZ and losartan
DVT prophylaxis�SCDs for now
CODE STATUS�DNR
[2024-10-18] MEDS: PROTONIX IV 80 MG IV (22:49)
[2024-10-18] MEDS: NSS (PRESERVATIVE FREE) 20 ML IV (22:49)
[2024-10-18] MEDS: FIORICET 1 TAB PO (23:24)
[2024-10-18] MEDS: D5/0.45%NACL 1000 IV (23:24)
[2024-10-19] VITALS (7 sets, daily range): BP systolic 124–158; BP diastolic 54–81; PULSE 59–78; BMI 31.0
[2024-10-19] MEDS: TYLENOL 650 MG PO ×4 (01:34→22:32)
--- NOTE | 2024-10-19 02:40 | PTCARENOTE ---
Patient received from ED via stretcher and was assisted to bed by staff. She was oriented to room and surroundings. IVF per order. See nursing assessment for physical findings. Nausea after ambulating to bathroom. Zofran administered per order.
Patient sleeping comfortably at this time.
[2024-10-19] MEDS: COZAAR 50 MG PO (08:00)
[2024-10-19] MEDS: NSS (PRESERVATIVE FREE) 10 ML IV (08:00)
[2024-10-19] MEDS: PROTONIX IV 40 MG IV (08:00)
[2024-10-19] MEDS: ORETIC 50 MG PO (08:01)
[2024-10-19] MEDS: COREG 12.5 MG PO (08:01)
[2024-10-19] MEDS: DESENEX/MITRAZOL/ZEASORB 1 APPLIC TOPICAL ×2 (08:01→20:59)
[2024-10-19 08:05] LABS: Blood Urea Nitrogen 13 mg/dl (7-17); Calcium 9.2 mg/dl (8.4-10.2); Carbon Dioxide 20 mmol/L (22-30); Chloride 112 mmol/L (98-107); Estimated Creatinine Clearance 67 ml/min; Glucose 87 mg/dl (70-99); Potassium 4.6 mmol/L (3.5-5.1); Sodium 137 mmol/L (135-145); eGFR > 60.00
[2024-10-19 08:11] LABS: Hematocrit 30.6 % (37.0-47.0); Hemoglobin 10.2 g/dL (12.0-16.0); Mean Corp Hgb Conc. 33.3 g/dL (33.0-37.0); Mean Corpuscular Volume 99.7 fL (81.0-99.0); Platelet Count 233 10^3/uL (130-400); Red Cell Dist. Width 15.3 % (11.5-14.5)
[2024-10-19] MEDS: SYMBICORT 160/4.5 MCG INHALER 1 PUFF INH ×2 (08:13→18:06)
--- NOTE | 2024-10-19 08:29 | W.PN.HOSP.TC ---
Today's Communication/Plan
-
PPI
Assessment / Plan
Assessment / Plan
Physical exam:
General: Well Developed, Well Nourished and No Apparent Distress
HEENT: Normocephalic, Atraumatic and Moist Mucous Membranes
Respiratory: Clear to Auscultation; Negative Wheezes, Rales or Rhonchi
Cardiac: Regular Rhythm and S1/S2
GI: Soft, Nontender and Nondistended
Musculoskeletal: No Clubbing, No Cyanosis and No Edema
Neuro: Awake, Alert and Oriented
Psych: Calm
A/P:
Abdominal pain in the setting of history of peptic ulcer disease:
Likely related to gastritis/duodenitis
Seen CT scan of the abdomen
Continue PPI twice daily but changed to oral
Add sucralfate
Started on diet
GI consult appreciated
Hold NSAIDs and see discussions below
Discussed about discharge plan and she was to see how she tolerates diet throughout the day possible go tomorrow if stable
Hypertension:
Continue home antihypertensives
Migraines:
Currently stable but see below.
She is not 'thrilled holding NSAIDS'-I had lengthy discussions that there are many newer treatments for migraine and also prophylaxis treatment that she can discussed with migraine specialist neurologist as outpatient.
DVT prophylaxis�SCDs
CODE STATUS�DNR
Time spent 35 minutes
Anticipated Discharge: Within 24 hours
Subjective/Interval History
-
Date of Service: October 19, 2024
Patient feels better overall today but not quite back to his baseline.
Objective Data
-
Labs:
Laboratory Results
10/19/24
07:14
WBC 4.3 L
Hgb 10.2 L
Hct 30.6 L
Plt Count 233 D
Sodium 137
Potassium 4.6
Chloride 112 H
Carbon Dioxide 20 L
BUN 13
Creatinine 0.6
Glucose 87
Calcium 9.2
Vital Signs:
Vital Signs
Temp Pulse Resp BP Pulse Ox
98.0 F 77 18 158/70 96
10/19/24 07:00 10/19/24 08:25 10/19/24 08:25 10/19/24 07:00 10/19/24 08:25
I&O
10/18/24 10/19/24 10/20/24
06:59 06:59 06:59
Intake Total 560 / 560
Balance 560 / 560
--- NOTE | 2024-10-19 08:58 | CON.GI ---
Addendum entered and electronically signed by Isac Tillman MD 10/19/24 13:11:
Patient seen and examined, agree with resident note. The patient is an 84-year-old female with past medical history as noted presents with acute onset of abdominal pain. She was in her usual state of health, when she describes a acute onset of
pain, points to her lower abdomen, then was more diffuse, was severe, 10 out of 10 for about 15 minutes then began to improve, overall lasted for about an hour before coming to the emergency room. This was not associated with any vomiting though
did have some nausea. She did have a bowel movement without blood or melena and had no change in her symptoms. She denies any radiation to the back or association with bending or turning. She denies any urinary symptoms. She does have a history
of peptic ulcer disease and has had multiple endoscopies, last in October that showed persistent duodenal ulcer that was improved from prior. She had been taking PPI daily intermittently does take NSAIDs. Repeat CT scan here again shows duodenal
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 On exam she has really no significant tenderness now, is soft. Her labs showed mild normocytic anemia, though otherwise
essentially normal including no leukocytosis, normal LFTs, lipase.
1. Abdominal pain: Overall unclear, with lower abdominal pain that was severe, though was short-lived, only about 15 minutes, with no other associated symptoms. While her CT scan does showed probable duodenal thickening and has known duodenal
ulcer, and she admittedly was taking PPI daily with NSAIDs, this does not seem consistent with peptic ulcer disease. She has no signs of bleeding, and her exam is benign now with no reproducible tenderness. Possible bowel spasm, less likely
intestinal ischemia. At this point, again her exam is benign and is overall feeling much better without any alarm symptoms. Will advance diet for tonight and continue observation. Will continue PPI twice daily and monitoring for now.
Original Note:
Consultation
-
Date/Time Consultation Requested: 10/18/24 23:00
Date/Time Consultation Performed: 10/19/24 09:00
Requesting Provider: Walter Roque
Performing Provider: Isac Tillman
Reason for Consultation: Duodenitis
Medical History
Chief Complaint / HPI
Chief Complaint: Abdominal pain/Nausea
History of Present Illness:
84-year-old female with history of prior gastric ulcer, esophageal ulcer and duodenal ulcers who presented with sudden onset R sided abdominal pain that was sharp and associated with nausea but no vomiting. The pain came out of nowhere, was not
associated with food, fevers, chills, or bowel changes. She reports feeling weak and being told she looked 'pale' by her . She did not lose consciousness. No black stools, BRBPR or coughing up of blood. Prior to this episode she was not
experiencing any abdominal pain.
She had an Endoscopy back in 10/2023 which demonstrated gastric ulcerations, multiple duodenal ulcers with a large 3cm cratered ulcer, and multiple esophageal ulcers. Follow up Bx from 2023 show no H. Pylori, no atypia or dysplasia, and Luther gland
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 She was instructed at that time to continue PPI BID and follow up in 8-12 weeks for repeat Endoscopy. Follow up Endoscopy in July 2024 showed nonbleeding ulcers and it was recommended that she
follow up in 3 months and continue PPI BID indefinitely, while avoiding NSAIDs.
Patient has a history of chronic migraines for which NSAIDs are the primary relieving analgesic for her and she reports continuing to use them, along with high dose tylenol. She has tried triptans in 2023 but they did not seem to help. She also
reports that she has been taking PPI once per day as opposed to twice per day, and is not sure why she switched. She has not followed up with GI since her last Endoscopy.
Today she notes that her pain has improved, though not fully resolved, and that she is awaiting her CLD breakfast. She has no nausea, vomiting, or bowel changes at this time. She feels better overall than when she came in, but not back to baseline.
Past Medical History
Past Medical History: HTN and Hypercholesterolemia
Past Surgical History: Other (cholecystectomy, appendectomy, hysterectomy, and ventral hernia repair)
Social History
Tobacco: Non-Smoker
Alcohol: None
Drug: None
Family History
Family History: Reviewed & Not Pertinent
Allergies / Home Medications
Allergy/AdvReac Type Severity Reaction Status Date / Time
cephalexin monohydrate (From Allergy Anaphylaxis Verified 10/18/24 16:42
Keflex)
clindamycin Allergy Anaphylaxis Verified 10/18/24 16:42
erythromycin base Allergy Anaphylaxis Verified 10/18/24 16:42
(Erythromycin Base)
gentamicin (Gentamicin) Allergy Anaphylaxis Verified 10/18/24 16:42
levofloxacin (From Levaquin) Allergy Anaphylaxis Verified 10/18/24 16:42
Penicillins Allergy Anaphylaxis Verified 10/18/24 16:42
Tetracyclines Allergy Anaphylaxis Verified 10/18/24 16:42
vancomycin Allergy Anaphylaxis Verified 10/18/24 16:42
ciprofloxacin (From Cipro) AdvReac Nausea / Verified 10/18/24 16:42
Vomiting /
Headache
codeine AdvReac Nausea / Verified 10/18/24 16:42
Vomiting /
Headache
iodine AdvReac Vomiting Verified 10/18/24 16:42
morphine AdvReac Shortness Verified 10/18/24 16:42
of Breath
bee/wasp Allergy Anaphylaxis Uncoded 09/21/24 13:03
mycin Allergy Anaphylaxis Uncoded 07/25/24 02:11
�Medication �Instructions �Recorded
calcium carbonate (Oyster Shell 500 mg PO DAILY Supplement 06/23/14
Calcium 500)
budesonide-formoterol HFA 160 1 puff inhalation R BID 10/24/23
mcg-4.5 mcg/actuation aerosol Lung/Breathing Issues
inhaler
cholecalciferol (vitamin D3) 50 50 mcg PO DAILY Supplement 10/24/23
mcg (2,000 unit) tablet
losartan 50 mg tablet 50 mg PO DAILY Blood Pressure 10/24/23
mftczlrfje-ekswnblxdawoe-oclfuglr 1 cap PO Q4HPRN PRN migraine 06/30/24
50 mg-300 mg-40 mg capsule
(Fioricet)
hydrochlorothiazide 50 mg tablet 50 mg PO DAILY Blood Pressure ##0 07/02/24
albuterol sulfate 90 mcg/actuation 2 puff inhalation R Q6HPRN PRN sob 07/25/24
aerosol inhaler
carvedilol 12.5 mg tablet (Coreg) 12.5 mg PO DAILY Blood Pressure 07/25/24
pantoprazole 40 mg tablet,delayed 40 mg PO BID Gastrointestinal 07/27/24
release Issue #60 tabs
Review of Systems
-
All other systems: A 12 pt ROS was Negative except as stated above in HPI
Abdomen/GI: Reports Abdominal Pain; Denies Nausea, Vomiting, Diarrhea, Constipated, Bloody Stools or Black Stools
Vital Signs
Temp Pulse Resp BP Pulse Ox
98.0 F 77 18 158/70 96
10/19/24 07:00 10/19/24 08:25 10/19/24 08:25 10/19/24 07:00 10/19/24 08:25
Physical Exam
Exam
General: Well Developed, Well Nourished, No Apparent Distress and Comfortable
HEENT: Normocephalic, Anicteric, Moist Mucous Membranes and Atraumatic
Respiratory: Clear and Non Labored Respirations; Negative Wheezes, Rales or Rhonchi
Cardiac: S1/S2 and Regular Rhythm; Negative Murmur, Rub or Calf Tenderness
Breast: Deferred by me
GI: Soft, Non Distended and Tender (Epigastric, RUQ and RLQ tenderness)
Rectal: Deferred by Provider
Genito-urinary: No Costovertebral Tender
Musculoskeletal: No Clubbing, No Cyanosis and No Edema
Skin: Warm and Dry
Neuro: AO x 3
Psych: Calm
Results
WBC 4.3 10^3/uL (4.8-10.8) L 10/19/24 07:14
Hgb 10.2 g/dL (12.0-16.0) L 10/19/24 07:14
Hct 30.6 % (37.0-47.0) L 10/19/24 07:14
MCV 99.7 fL (81.0-99.0) H 10/19/24 07:14
Plt Count 233 10^3/uL (130-400) D 10/19/24 07:14
Absolute Neuts (auto) 5.3 10^3/uL (1.4-6.5) 10/18/24 17:43
Sodium 137 mmol/L (135-145) 10/19/24 07:14
Potassium 4.6 mmol/L (3.5-5.1) 10/19/24 07:14
Chloride 112 mmol/L (98-107) H 10/19/24 07:14
Carbon Dioxide 20 mmol/L (22-30) L 10/19/24 07:14
BUN 13 mg/dl (7-17) 10/19/24 07:14
Creatinine 0.6 mg/dL (0.6-1.0) 10/19/24 07:14
Calcium 9.2 mg/dl (8.4-10.2) 10/19/24 07:14
Total Bilirubin 0.5 mg/dl (0.2-1.3) 10/18/24 17:43
AST 21 U/L (14-36) 10/18/24 17:43
ALT 13 U/L (0-35) 10/18/24 17:43
Alkaline Phosphatase 91 U/L (38-126) 10/18/24 17:43
Lipase 297 U/L (23-300) 10/18/24 17:43
Diagnostic Image Results:
Prior GI Procedures:
EGD:
Endoscopy (10/26/23):
Small, superficial esophageal ulcer with no bleeding
Mild Schatzki ring
Few, scattered non-bleeding gastric ulcers with a clean ulcer base (Nikita Class III)
Large, 3cm partially obstructing, deep penetrating cratered duodenal ulcer with a flat pigmented spot (Nikita Class IIc)
Endoscopy (07/26/24):
Grade A esophagitis with no bleeding
Non-bleeding gastric ulcer
Non-bleeding duodenal ulcer (Luther gland hyperplasia, gastric foveolar metaplasia)
Acquired duodenal stenosis
Non-bleeding duodenal diverticulum
Colonoscopy:
Assessment / Plan
-
84-year-old female with history of prior gastric ulcer, esophageal ulcer and duodenal ulcers who presented with sudden onset R sided abdominal pain who had not been taking PPI BID as instructed and was still using NSAIDs despite need of avoidance.
CT scan on admission demonstrated duodenitis without perforation.
CT Abd/Pelvis Oral Contrast (10/18/24):
Moderate to severe thickening of the wall of the duodenal bulb, moderate wall thickening involving the second and proximal third portions of the duodenum, with stranding of the surrounding fat suggestive of duodenitis.
Duodenal Diverticula
No evidence for free intraperitoneal air
#Right Sided Abdominal Pain, 2* duodenitis
#h/o Duodenal Ulcers
#h/o Epigastric Ulcers
#h/o Gastric Ulcers
Her right sided abdominal pain and nausea are most likely the result of worsening, non-healing duodenal ulceration as evidenced by CT imaging, as a consequence of improper antacid use and continuing use of NSAIDs. Prior biopsies were negative for
H.Pylori or atypia, so it is most likely that these worsening symptoms are due to medication non-compliance as opposed to alterative pathologies (malignant, infectious, etc).
At this time, she is improving in terms of pain. She has ordered a CLD breakfast, which I suspect she will be able to tolerate. If she needs, she can take Sucralfate to control symptoms.
At this time, would recommend that she continues to take PPI BID and strongly encourage continued NSAID avoidance. She should speak with her Primary care doctor about alternative medications for Migraine pain control and possibly try Triptans
again. She should have close follow up with GI she was recommended 3 mo follow up at time of last Endoscopy which should be about now. Will leave information in the d/c paperwork for her.
-
-
Thank you for consultation and allowing me to participate in the patient's care. Please call the manager international GI physician during the after hours with any questions or concerns.
--- NOTE | 2024-10-19 12:55 | CM ---
Addendum entered by Kim Gavin 10/19/24 13:04:
PCP: Juan M Murphy [phone]
Pharmacy: [facility], also uses [facility] in [place] for jail medications
Original Note:
Patient seen at bedside with Jose Francisco
IA completed
Dx: duodenitis
PMH: gastric ulcer, esophageal ulcer and duodenal ulcers who presented with sudden onset R sided abdominal pain
Lives with in 1 story home, [address]
PLOF: Independent, states uses can in the winter
DME: Cane, shower chair
Denies VN/Rehab
Denies insecurities
PLAN: Home, no needs anticipated
[2024-10-19] MEDS: FIORICET 1 TAB PO ×2 (13:12→21:02)
[2024-10-19] MEDS: D5/0.45%NACL 1000 IV (15:43)
[2024-10-19] MEDS: CARAFATE 1 GRAM PO ×2 (16:53→20:58)
[2024-10-19] MEDS: PROTONIX 40 MG PO (20:58)
[2024-10-19] MEDS: ZOFRAN 4 MG IV (22:06)
--- NOTE | 2024-10-19 22:17 | PTCARENOTE ---
Patient c/o migraine headache that is increasing in severity since start of shift. PRN Fioricet provided without relief, patient now tearful and c/o nausea. CUSTODIAL WORKER aware, ordered one time dose Tylenol to aid in migraine relief. PRN Zofran provided to
patient, see MAR. Will monitor.
--- NOTE | 2024-10-20 02:40 | PTCARENOTE ---
Patient c/o itching to entire back, shoulders and down B/L UEs, worsening during early AM hours. Patient states 'I know I am not dirty. I have been standing in the bathroom splashing cold water on my body and I changed my sheets today so I know that
is not the issue.' Patient does admit that her stress may be getting to her at this point. No rash noted on assessment. FOOD CLERK notified, one time dose IV benadryl provided to patient, see MAR. Patient does report some relief since administration. Will
monitor.
[2024-10-20 02:48] VITALS: BP 174/74
[2024-10-20] MEDS: BENADRYL 12.5 MG IV (03:28)
[2024-10-20] MEDS: FLUSH (NSS) 1 FLUSH IV (03:30)
[2024-10-20 06:58] VITALS: BMI 29.3
[2024-10-20 07:00] VITALS: BP 149/77
--- NOTE | 2024-10-20 07:34 | W.PN.HOSP.TC ---
Today's Communication/Plan
-
Discharge planning today
Assessment / Plan
Assessment / Plan
Physical exam:
General: Well Developed, Well Nourished and No Apparent Distress
HEENT: Normocephalic, Atraumatic and Moist Mucous Membranes
Respiratory: Clear to Auscultation; Negative Wheezes, Rales or Rhonchi
Cardiac: Regular Rhythm and S1/S2
GI: Soft, Nontender and Nondistended
Musculoskeletal: No Clubbing, No Cyanosis and No Edema
Neuro: Awake, Alert and Oriented
Psych: Calm
A/P:
Abdominal pain in the setting of history of peptic ulcer disease:
Likely related to gastritis/duodenitis
Seen CT scan of the abdomen
Continue PPI twice daily but changed to oral
Add sucralfate
H&H stable
Started on diet and tolerated
GI consult appreciated
Hold NSAIDs and see discussions below
Discharge planning today
Hypertension:
Continue home antihypertensives
Migraines:
Currently stable but see below.
She is not 'thrilled holding NSAIDS'-I had lengthy discussions that there are many newer treatments for migraine and also prophylaxis treatment that she can discussed with migraine specialist neurologist as outpatient.
DVT prophylaxis�SCDs
CODE STATUS�DNR
Anticipated Discharge: Today
Subjective/Interval History
-
Date of Service: October 20, 2024
Abdominal pain improved. No new complaints
Objective Data
-
Labs:
Laboratory Results
10/20/24
06:00
Hgb Pending
Hct Pending
Vital Signs:
Vital Signs
Temp Pulse Resp BP Pulse Ox
98.4 F 60 16 149/77 99
10/20/24 07:00 10/20/24 07:00 10/20/24 07:00 10/20/24 07:00 10/20/24 07:00
I&O
10/19/24 10/20/24 10/21/24
06:59 06:59 06:59
Intake Total 560 / 560 2340 / 2340
Balance 560 / 560 2340 / 2340
[2024-10-20] MEDS: SYMBICORT 160/4.5 MCG INHALER 1 PUFF INH (07:39)
--- NOTE | 2024-10-20 08:08 | W.PN.GI.CBS2 ---
Today's Communication / Plan
-
Please see assessment and plan for details.
Assessment / Plan
-
1. Abdominal pain: Unclear etiology, lower, overall was transient without any other associated symptoms. Labs and CT scan here without any new acute changes. She does have a history of peptic ulcer disease with duodenitis noted on CT scan, her
symptoms do not seem to be associated. At this point we will await morning hemoglobin. If stable and tolerating breakfast is okay to DC from a GI standpoint.
2. Peptic ulcer disease: We discussed the importance of continuing PPI and avoiding NSAIDs. She will follow-up in the office as planned.
Subjective
Subjective
Date of Service: October 20, 2024
Patient feeling well, tolerated diet without difficulty. No further episodes of her pain. She does have some fatigue though again no significant pain. She has no signs of bleeding overnight. No fevers or chills, nausea or vomiting.
Objective
Data Reviewed
Laboratory Data:
Laboratory Results
10/19/24 07:14
Laboratory Results
Total Bilirubin 0.5 mg/dl (0.2-1.3) 10/18/24 17:43
AST 21 U/L (14-36) 10/18/24 17:43
ALT 13 U/L (0-35) 10/18/24 17:43
Alkaline Phosphatase 91 U/L (38-126) 10/18/24 17:43
Lipase 297 U/L (23-300) 10/18/24 17:43
Vital Signs and I&O:
Vital Signs
Temp Pulse Resp BP Pulse Ox
98.4 F 63 16 149/77 99
10/20/24 07:00 10/20/24 07:41 10/20/24 07:41 10/20/24 07:00 10/20/24 07:41
I&O
10/19/24 10/20/24 10/21/24
06:59 06:59 06:59
Intake Total 560 / 560 0 / 2339
Balance 560 / 560 0 / 2339
Physical Exam
Physical Exam
General: NAD
Abdomen: normal bowel sounds, soft, no tenderness, no masses or bruits, no ascites
[2024-10-20] MEDS: ORETIC 50 MG PO (08:39)
[2024-10-20] MEDS: PROTONIX 40 MG PO (08:39)
[2024-10-20] MEDS: COZAAR 50 MG PO (08:40)
[2024-10-20] MEDS: COREG 12.5 MG PO (08:40)
[2024-10-20] MEDS: CARAFATE 1 GRAM PO (08:40)
[2024-10-20] MEDS: DESENEX/MITRAZOL/ZEASORB 1 APPLIC TOPICAL (08:47)
[2024-10-20 10:46] LABS: Hematocrit 31.5 % (37.0-47.0); Hemoglobin 10.5 g/dL (12.0-16.0)
--- NOTE | 2024-10-20 11:11 | W.DCSUMMARY ---
Discharge Summary
Discharge Data
Date of Admission: 10/18/24
Date of Discharge: 10/20/24
-
Pending Results: No
Hospital Course
Patient 84 years old female history of peptic ulcer disease came into the hospital with abdominal pain. She was started on PPI. GI was consulted. Patient had not been very compliant with her twice a day PPI and also she has been not compliant
avoiding NSAIDs. Placed her back on her home regimen and added sucralfate and she has been doing well and her hemoglobin has remained stable. We also had lengthy discussions about other options for her migraine headaches other than and states and
she will seek medical advice with her neurologist. Otherwise, patient is hemodynamically stable afebrile tolerating diet well and symptomatically much improved. She will be discharged in stable condition today.
Discharge Plan
-
Patient Disposition: Home (Routine Discharge)
Discharge Diagnosis/Procedures: Abdominal pain. Acute gastritis and duodenitis. History of peptic ulcer disease. Chronic anemia.
Diet: Low Cholesterol
Activity: As tolerated
Blood Work: Please PCP to order CBC, BMP within 1 week
Referrals:
Primary care provider [Other] - in less than 1 week
Isac Tillman MD [Active, Gastroenterology]
UNKNOWN - PT DOES,NOT KNOW [Family Provider]
Prescriptions:
New
sucralfate 1 gram Tablet
1 g PO ACHS 14 Days Qty: 56 0RF
Continued
calcium carbonate [Oyster Shell Calcium 500] 500 MG tablet
500 mg PO DAILY
losartan 50 mg tablet
50 mg PO DAILY
cholecalciferol (vitamin D3) 50 mcg (2,000 unit) Tablet
50 mcg PO DAILY
budesonide-formoterol 160-4.5 mcg/actuation HFA aerosol inhaler
1 puff INHALATION R BID
pnfzrogtif-tiicjgucciswx-niqp [Fioricet] 50-300-40 mg Capsule
1 cap PO Q4HPRN PRN (Reason: migraine)
hydrochlorothiazide 50 mg Tablet
50 mg PO DAILY Qty: 0
carvedilol [Coreg] 12.5 mg Tablet
12.5 mg PO DAILY
albuterol sulfate 90 mcg/actuation Hfa Aerosol Inhaler
2 puff INHALATION R Q6HPRN PRN (Reason: sob)
pantoprazole 40 mg tablet,delayed release (DR/EC)
40 mg PO BID Qty: 60 0RF
Discharge Orders:
Discharge Patient (As Directed); Ordered 10/20/24
Ordered By: George Goodman
Discharge Date and Time
Discharge Date/Time: 10/20/24 11:58
Print Language: WELSH
[2024-10-20 11:22] VITALS: BP 141/66
[2024-10-20] MEDS: CARAFATE PO (11:39)
--- NOTE | 2024-10-20 12:58 | CM ---
MD entered order for discharge.
Spoke with patient in room , She said she was ready for discharge.
IMM reviewed She signed and IMM on chart.
Jose Francisco will drive her home.
Offered VN she refused VN .
PLAN Home no needs
== END 2024-10-20 11:58 | disposition home or self-care (01) | DRG 392 ==
LOC: 3 WEST ACU 22:36
PROVIDERS: ADMITTING PHYSICIAN Internal Medicine; ATTENDING PHYSICIAN Hospitalist; CONSULT PHYSICIAN Internal Medicine Gastroenterology; EMERGENCY PHYSICIAN Emergency Medicine
DX: K29.80 Duodenitis without bleeding (principal); K29.00 Acute gastritis without bleeding; G43.909 Migraine, unspecified, not intractable, without status migrainosus; E78.00 Pure hypercholesterolemia, unspecified; Z66 Do not resuscitate; J45.909 Unspecified asthma, uncomplicated; D64.9 Anemia, unspecified; K21.9 Gastro-esophageal reflux disease without esophagitis; I10 Essential (primary) hypertension; Z88.0 Allergy status to penicillin; Z88.1 Allergy status to other antibiotic agents; Z88.5 Allergy status to narcotic agent; Z79.51 Long term (current) use of inhaled steroids; Z79.899 Other long term (current) drug therapy; Z91.148 Patient's other noncompliance with medication regimen for other reason; Z90.49 Acquired absence of other specified parts of digestive tract; Z87.11 Personal history of peptic ulcer disease
CPT/HCPCS: 74176; 80048; 80053; 81003; 81015; 83690; 85014; 85018; 85025; 85027; 87086; 94640; 96361; 96374; 96375; 96376; 99285

== ENCOUNTER 2024-11-03 00:58 | Emergency (ER) | payer MEDICARE, OTHER, SELFPAY ==
[2024-11-03 01:09] VITALS: BP 173/83
[2024-11-03 01:47] LABS: Urine Character Clear (Clear)
[2024-11-03] MEDS: ZOFRAN 4 MG IV ×2 (01:53→04:31)
[2024-11-03 02:04] LABS: COVID-19 Antigen Negative (Negative)
[2024-11-03 02:12] LABS: Hematocrit 35.6 % (37.0-47.0); Hemoglobin 11.6 g/dL (12.0-16.0); Mean Corp Hgb Conc. 32.6 g/dL (33.0-37.0); Mean Corpuscular Volume 102.0 fL (81.0-99.0); Nucleated Red Blood Cells % 0 %; Platelet Count 264 10^3/uL (130-400); Red Cell Dist. Width 15.5 % (11.5-14.5)
[2024-11-03 02:28] LABS: ALT (SGPT) 35 U/L (0-35); AST (SGOT) 35 U/L (14-36); Albumin 4.1 g/dl (3.5-5.0); Alkaline Phosphatase 101 U/L (38-126); Blood Urea Nitrogen 23 mg/dl (7-17); Calcium 9.7 mg/dl (8.4-10.2); Carbon Dioxide 19 mmol/L (22-30); Chloride 114 mmol/L (98-107); Glucose 95 mg/dl (70-99); Potassium 4.1 mmol/L (3.5-5.1); Sodium 139 mmol/L (135-145); Total Protein 6.6 g/dl (6.3-8.2); eGFR 44.36
[2024-11-03 03:11] LABS: Urine Squamous Cell >30 /LPF (Few)
[2024-11-03 03:13] LABS: Urine Red Blood Cell None Seen /HPF (0-2)
--- NOTE | 2024-11-03 04:11 | ED.GENMED ---
History of Present Illness
General
Chief Complaint: Cold/Flu/URI Symptoms
Source: patient
Time Seen by Provider: 11/03/24 04:03
History of Present Illness
History of Present Illness:
84-year-old female presents to the emergency room complaining of feeling generally unwell. Symptoms began over the past 24 hours. She had a subjective fever but did not measure it. She took Tylenol without significant improvement. She has mild
headache, body aches, malaise, sore throat. No significant cough. No significant abdominal pain. She denies nausea vomiting or diarrhea. Patient just returned home from a trip to [facility]. They did a lot of hiking. She traveled with
her who was not ill.
Past History
Past History
ED Past Medical History: Asthma, HTN and Other (Migraines)
ED Past Surgical History: Orthopedic and Other (Hernia)
Social History
Tobacco: Non-smoker
Personal:
Living: with family
Phy Exam
Physical Exam
Physical Exam:
General: Awake, Alert, Oriented X3. No acute distress. Appears stated age
Vitals: unremarkable
Head: Atraumatic
Eyes: Pupils equal, EOMI
Throat: Airway intact, no exudates
Neck: Trachea midline
Lungs: Clear and equal b/l
Heart: Regular rate, no murmurs
Abd: Soft, Nontender, No pulsatile mass
Neuro: Nonfocal
Skin: Warm, dry, no rash
Extremities: pulses equal b/l, no edema
Course
Orders/Labs/Results
Orders:
Orders
11/03/24 01:26
Electrocardiogram (*1) Urgent
Reason for Study: Abdominal Pain
Cardiology Consult: Unknown
Chest [CR Chest - 2 Views ] Urgent
Comment:
Reason For Exam: fever
11/03/24 01:27
EKG- Treatment ONCE
11/03/24 01:32
COVID-19 Antigen Urgent
Source: Nasal Swab
Urinalysis Reflex To Culture Urgent
Date Specimen was Collected: 11/03/24
Time Specimen was Collected: 01:28
Urine Microscopic Reflex Cult Urgent
Influenza A+B Rapid Molecular Urgent
AISHWARYA Source: Nasal Swab
Specimen Description:
Urine Culture Urgent
AISHWARYA Source: U
Specimen Description:
Date Specimen was Collected: 11/03/24
Time Specimen was Collected: 01:28
11/03/24 01:48
Ondansetron Injectable [Zofran] 4 mg .ROUTE .STK-MED ONE
11/03/24 01:53
Ondansetron Injectable [Zofran] 4 mg IV NOW STA
11/03/24 02:05
Complete Blood Count/With Diff Urgent
Comprehensive Metabolic Panel Urgent
Lactic Acid Urgent
11/03/24 04:18
Ondansetron Injectable [Zofran] 4 mg IV NOW STA
11/03/24 04:21
Acetaminophen [Tylenol] 1,000 mg PO NOW STA
Abnormal Lab Results
11/03/24 11/03/24
01:32 02:05
RBC 3.49 L 10^6/uL
(4.20-5.40)
Hgb 11.6 L g/dL
(12.0-16.0)
Hct 35.6 L %
(37.0-47.0)
MCV 102.0 H fL
(81.0-99.0)
MCH 33.2 H pg
(27.0-31.0)
MCHC 32.6 L g/dL
(33.0-37.0)
RDW 15.5 H %
(11.5-14.5)
Eosinophils % 6.2 H %
(0-6)
Chloride 114 H mmol/L
(98-107)
Carbon Dioxide 19 L mmol/L
(22-30)
BUN 23 H mg/dl
(7-17)
Creatinine 1.2 H mg/dL
(0.6-1.0)
Leukocyte Esterase Rfl 2+ A
(Negative)
Urine Bacteria (Reflex) Few A
(Negative)
Urine Albumin (Reflex) 2+ A
(Neg - Trace)
11/03/24 02:05
11/03/24 02:05
Vital Signs
Initial and Last Documented VS:
Initial Vital Signs
Temp Pulse Resp BP Pulse Ox
97.9 F 72 26 173/83 100
11/03/24 01:09 11/03/24 01:09 11/03/24 01:09 11/03/24 01:09 11/03/24 01:09
Last Documented Vital Signs
Temp Pulse Resp BP Pulse Ox
97.9 F 72 26 173/83 100
11/03/24 01:09 11/03/24 01:09 11/03/24 01:09 11/03/24 01:09 11/03/24 04:12
MDM/Problems Addressed
Differential Diagnosis Includes:
COVID, influenza, pneumonia, UTI, viral illness, Lyme
MDM/Problems Addressed:
Patient presents with headache, sore throat, malaise. Work appears unremarkable. Patient does not appear toxic. She is tolerating oral intake. She stable for discharge home. Will send a Lyme titer given her recent visit to [facility].
*Radiology
Radiology exam reviewed: preliminary read by ED provider (MRI and lab reviewed patient's chest x-ray)
*Pulse Oximetry
SaO2: 100
Oxygen Mode of Delivery: Room air
Patient hypoxic: no
*EKG
Interpreted by ED Provider?: Yes
Heart Rate: 67
Rate: normal
Rhythm: sinus
[place]: normal axis
Interval: normal interval
QRS Pattern: normal QRS
Ischemia: no ischemia
*Functional Consultant Interpretation
Rate: normal
Interpretation: normal
Rhythm: sinus
*Critical Care Note
Total Time (30-74mins, 75-104mins- exclusive of procedures): Not Applicable
ED Attending Note
-
Portions of this chart may have been created with voice recognition software.� Occasional wrong word or��sound alike� substitutions may have occurred due to the inherent limitations of voice recognition software.
Discharge Plan
Departure
Patient Disposition: Home (Routine Discharge)
Date of Disposition: 11/03/24
Time of Disposition: 05:35
Patient with high blood pressure during this ER visit?: No
Condition: Good
Discharge Problem:
URI, acute
Instructions: Viral Upper Respiratory Infection, Adult (DC)
Prescriptions:
No Action
calcium carbonate [Oyster Shell Calcium 500] 500 MG tablet
500 mg PO DAILY
losartan 50 mg tablet
50 mg PO DAILY
cholecalciferol (vitamin D3) 50 mcg (2,000 unit) Tablet
50 mcg PO DAILY
budesonide-formoterol 160-4.5 mcg/actuation HFA aerosol inhaler
1 puff INHALATION R BID
upxjjjfjik-frsjfqfnqrtgt-hvjq [Fioricet] 50-300-40 mg Capsule
1 cap PO Q4HPRN PRN (Reason: migraine)
hydrochlorothiazide 50 mg Tablet
50 mg PO DAILY Qty: 0
carvedilol [Coreg] 12.5 mg Tablet
12.5 mg PO DAILY
albuterol sulfate 90 mcg/actuation Hfa Aerosol Inhaler
2 puff INHALATION R Q6HPRN PRN (Reason: sob)
sucralfate 1 gram Tablet
1 g PO ACHS 14 Days Qty: 56 0RF
pantoprazole 40 mg tablet,delayed release (DR/EC)
40 mg PO BID Qty: 60 0RF
Referrals:
UNKNOWN,NO INTERVIEW [Family Provider]
Interventions
Interventions:
*Risk Screen - Suicide Last Done: 11/03/24 01:09
*General Assessment Last Done: 11/03/24 01:09
*Neglect/Abuse Screening Last Done: 11/03/24 01:09
*ED- Fall Risk Assessment Last Done: 11/03/24 01:09
*ED COVID-19 Vaccine History Last Done: 11/03/24 01:09
Discharge Date and Time
Print Language: BOLIVIAN
[2024-11-03] MEDS: TYLENOL 1000 MG PO (04:31)
[2024-11-03 06:00] VITALS: BP 165/85
[2024-11-05 15:22] LABS: Lyme Antibody Screen, EIA Negative (Negative)
== END 2024-11-03 06:58 | disposition home or self-care (01) ==
LOC: EMR 00:58
PROVIDERS: Emergency Medicine; EMERGENCY PHYSICIAN Emergency Medicine
DX: J06.9 Acute upper respiratory infection, unspecified (principal); I10 Essential (primary) hypertension; J45.909 Unspecified asthma, uncomplicated; Z11.52 Encounter for screening for COVID-19
CPT/HCPCS: 96374; 96376; 99284; 71046; 80053; 81003; 81015; 83605; 85025; 86618; 87086; 87502; 87811; 93005

== ENCOUNTER 2024-12-04 06:42 | Observation (INO) | payer MEDICARE, OTHER, SELFPAY ==
[2024-12-04] VITALS (14 sets, daily range): BP systolic 153–216; BP diastolic 67–98; BMI 28.1; BMI 26.9
--- NOTE | 2024-12-04 03:03 | ED.GENMED ---
History of Present Illness
General
Chief Complaint: Cardiac Symptoms
Source: patient
Exam Limitations: none
Time Seen by Provider: 12/04/24 02:54
History of Present Illness
History of Present Illness:
See MDM
Past History
Past History
ED Past Medical History: Asthma, HTN and Other (Migraines)
ED Past Surgical History: Orthopedic and Other (Hernia)
Social History
Tobacco: Non-smoker
Personal:
Living: with family
Phy Exam
Physical Exam
Physical Exam:
See MDM
Course
Orders/Labs/Results
Orders:
Orders
12/04/24 02:57
Electrocardiogram (*1) Urgent
Reason for Study: Chest Pain
Cardiac Monitoring- Treatment ONCE
EKG- Treatment ONCE
IV Insert/Care/Rem.- Treatment PRN
Pulse Ox/spot Check [RESP] Urgent
Quantity: 1
Special Instructions: ON ROOM AIR
12/04/24 03:02
Nitroglycerin Sublingual [Nitrostat (Sublingual)] 0.4 mg SL NOW STA
CR Chest Portable - 1 View Urgent
Comment:
Reason For Exam: chest pain
Reason Study Needs to be Portable: Patient Unstable
12/04/24 03:04
Complete Blood Count/With Diff Urgent
Comprehensive Metabolic Panel Urgent
Lipase Urgent
Comment: ADD ON
NT-proBNP Urgent
Comment: ADD ON
Troponin I Urgent
12/04/24 03:16
Acetaminophen [Tylenol] 650 mg PO NOW STA
12/04/24 03:55
Ondansetron Injectable [Zofran] 4 mg IV NOW STA
12/04/24 03:56
Ondansetron Injectable [Zofran] 4 mg .ROUTE .STK-MED ONE
12/04/24 04:29
Butalb/Acetaminophen/Caffeine [Fioricet] 1 tab PO NOW STA
12/04/24 04:53
Add On- LAB Urgent
Tests Added?: lipase
12/04/24 Breakfast
Cholesterol Lowering
At Your Request: Full Participation
Does patient need a safe tray?: No
Fluid Restriction: 1800 mL/day (60 oz)
Cholesterol Lowering: Sodium, 2 Gram
12/04/24 06:02
Troponin I Urgent
12/04/24 06:03
Famotidine [Pepcid] 20 mg IV NOW STA
Furosemide [Lasix] 20 mg IV NOW STA
Potassium Chloride [KCl] 40 meq PO NOW STA
12/04/24 06:04
Admit/Transfer Patient As Directed
Co-Sign Provider:
Level of Care: Observation services
Assign to:: Telemetry
Physician / Group: Mya
Diagnosis: chest pain
Reason for Telemetry: Chest Pain syndromes
Date to Stop Telemetry: 12/06/24
Time to Stop Telemetry: 11:00
PRN Pain Medication Management As Directed
May give lesser potent ordered pain med per pt: Yes
preference::
Protocol:: Medication orders for pain may be administered in a
manner that supports deferring to patient preference
when the pt is:
- Requesting an ordered lesser potent pain medication.
Least to most potent pain medications are defined
as: acetaminophen < NSAID < tramadol < opioids
(morphine, oxycodone, hydromorphone).
- Requesting a lesser dose of the same medication IF
ORDERED.
- Requesting a less intrusive route of administration
if both routes are prescribed by the provider (PO <
IV).
12/04/24 06:05
Code Status As Directed
Resuscitation Status: Do not resuscitate
Reached after discussion with pt or family/Healthcare POA: Yes
12/04/24 06:06
DNR Bracelet Application ONCE
12/04/24 06:10
Butalb/Acetaminophen/Caffeine [Fioricet] 1 tab PO NOW STA
12/04/24 08:32
Albuterol [ProAIR HFA INHALER] 2 puff INH R Q6HPRN PRN sob
Carvedilol [Coreg] 12.5 mg PO DAILY
Losartan [Cozaar] 50 mg PO DAILY
Pantoprazole [Protonix] 40 mg PO BID
12/04/24 08:32
Echo 2D MMode Color/Doppler Routine
Reason for Study: chest pain, heart failure
Consult Notification Routine
Specialty to Notify: Cardiology
Date consulting provider notified: 12/04/24
Time consulting provider notified: 08:41
Notified:: Provider
Comment: MARCELO NEUMANN
HF DIETARY CONSULT Routine
HF EDUCATOR CONSULT Routine
Comment:
Activity As Directed
Activity Level: With Assistance
Intake/ Output As Directed
Frequency: Per unit guidelines
Patient Education As Directed
Type: CHF folder
Comment: give on admission. Document in Interdisciplinary Education record
Pneumatic Compression Sleeves As Directed
Type: Knee high
Sleep Apnea Assessment by RN As Directed
Comment:
Physician Instructions:
Vital Signs As Directed
Frequency: Other
Additional Instructions:: Q12 or per unit guidelines if more frequent.
Weight As Directed
Frequency: Daily
Type of Scale: Standing Scale
Comment: Daily morning weight. If unable to stand, use balanced bed scale.
Weight As Directed
Frequency: Once
Type of Scale: Standing Scale
Comment: Upon Admission. If unable to stand, use balanced bed scale.
Pulse Ox/cont/shift [RESP] Routine
Quantity: 1
Special Instructions: Daily pulse oximetry at rest. If greater than 92% at rest also obtain pulse oximetry
while ambulating as tolerated.
DX Deep Vein Thrombosis Video Routine
12/04/24 08:46
Butalb/Acetaminophen/Caffeine [Fioricet] 1 tab PO Q4HPRN PRN
12/04/24 09:00
Budesonide/Formoterol 160/4.5 [Symbicort 160/4.5 Mcg Inhaler] 1 puff INH R BID Lung/Breathing Issues
12/04/24 13:46
BMP [Basic Metabolic Panel] Routine
12/04/24 16:00
Furosemide [Lasix] 20 mg IV BID AT 0800,1600
12/06/24 11:00
DC Protocol for Telemetry ONCE
Abnormal Lab Results
12/04/24
03:04
WBC 4.6 L 10^3/uL
(4.8-10.8)
RBC 3.35 L 10^6/uL
(4.20-5.40)
Hgb 10.9 L g/dL
(12.0-16.0)
Hct 33.7 L %
(37.0-47.0)
MCV 100.6 H fL
(81.0-99.0)
MCH 32.5 H pg
(27.0-31.0)
MCHC 32.3 L g/dL
(33.0-37.0)
RDW 14.8 H %
(11.5-14.5)
Absolute Lymphs (auto) 1.1 L 10^3/uL
(1.2-3.4)
Monocytes % 13.8 H %
(1.7-9.3)
Eosinophils % 7.2 H %
(0-6)
Potassium 3.4 L mmol/L
(3.5-5.1)
12/04/24 03:04
12/04/24 03:04
Vital Signs
Initial and Last Documented VS:
Initial Vital Signs
Pulse Pulse Ox
63 99
12/04/24 02:59 12/04/24 02:59
Last Documented Vital Signs
Temp Pulse Resp BP Pulse Ox
98.6 F 71 17 104/51 95
12/05/24 15:00 12/05/24 15:00 12/05/24 15:00 12/05/24 15:00 12/05/24 15:00
MDM/Problems Addressed
Differential Diagnosis Includes:
Note:
CHIEF COMPLAINT(S)
Chest pain
HISTORY OF PRESENT ILLNESS
The patient is an 84-year-old female who presented with acute onset of gasping for air and Chest pain. The pain was described as severe and localized to the left chest. This episode occurred around 2:00 PM while the patient was at home. The patient
has a history of a murmur but does not report any previous heart-related issues. However, she mentioned being released from medical care a week prior for significant duodenal ulcer. She was notably concerned about potential heart involvement due to
the severity of her symptoms. The patient reported a past episode of abdominal pain due to a duodenal ulcer, which she stated was of a different nature than her current symptoms.
PAST MEDICAL AND SURIGICAL HISTORY
The patient has a past medical history significant for a duodenal ulcer.
ALLERGIES
The patient reports allergies to medications in the mycin class and penicillin.
SOCIAL HISTORY
The patient does not smoke and there was no alcohol use reported.
REVIEW OF SYSTEMS
- Respiratory: Gasping for air, no known past lung issues.
- Gastrointestinal: Abdominal pain, previously experienced different abdominal pain due to duodenal ulcer.
- Cardiovascular: No previous heart attack, history of heart anomaly, sinus rhythm reported on current evaluation.
PHYSICAL EXAM
General: Mildly uncomfortable
Skin: Warm, dry.
Head: Normocephalic, atraumatic
Neck: Appears supple, trachea midline.
Eyes, Ears, Nose, Mouth, and Throat: Moist mucous membranes
Cardiovascular: No signs of cyanosis. Regular rate and rhythm
Respiratory: Respirations are non-labored. Lungs clear
Abdomen: Non-distended
Musculoskeletal: No deformities
Neurological: No focal neurological deficit observed.
Psychiatric: Cooperative, appropriate mood and affect.
PLAN
- Conduct an electrocardiogram (EKG) to assess for possible myocardial infarction.
- Administer aspirin and nitroglycerin with consideration for past duodenal ulcer.
- Monitor vital signs and symptoms closely.
DIFFERENTIAL DIAGNOSIS
The Differential Diagnosis includes, in no particular order and is not limited to:
1. Myocardial Infarction
2. Pulmonary Embolism
3. Aortic Dissection
4. Gastroesophageal Reflux Disease (GERD)
5. Peptic Ulcer Disease
6. Gastritis
7. Costochondritis
8. Pneumonia
9. Heart Failure
10. Arrhythmia
EKG
My independent EKG interpretation is:
- Rhythm: Sinus rhythm
- Heart rate: 65 beats per minute
- Somers: Normal axis
- Notable findings: Left Ventricular Hypertrophy (LVH)
- ST segment: No ST elevation noted
SUMMARY OF ENCOUNTER
The 84-year-old female patient presents to the emergency department with chest pain and shortness of breath. Initial workup shows a negative troponin, and BNP is mildly elevated but not significantly different from her baseline. Symptoms showed some
improvement with nitroglycerin administration; however, the patient experienced headaches and other side effects from the medication. Given the recent history of a significant duodenal ulcer, aspirin was not administered. Plan is to admit the
patient for troponin trending and a likely cardiology evaluation.
DISPOSITION
Admit to the hospice team for further evaluation.
ASSESSMENT
The patient exhibits chest pain and dyspnea with a concern for an underlying cardiac condition, though immediate life-threatening cardiac causes appear initially less likely, given the negative troponin. Symptoms need further evaluation through
cardiology consultation.
EMERGENCY TREATMENTS ADMINISTERED
Nitroglycerin administered; however, the patient experienced headache and other side effects.
PLAN
Admission for continued monitoring of cardiac enzymes and further cardiology evaluation. Consider alternative treatments for heart-related symptoms considering the patients intolerance to nitroglycerin and recent ulcer history.
MEDICAL DECISION MAKING
- Number and Complexity of Problems Addressed: Chronic conditions affecting care, including a significant duodenal ulcer. Differential diagnosis includes myocardial infarction, pulmonary embolism, aortic dissection, GERD, peptic ulcer disease,
gastritis, costochondritis, pneumonia, heart failure, and arrhythmia.
- Data:
Category 1:
My independent interpretation of the electrocardiogram (EKG) reveals sinus rhythm with no ST elevation but notable findings of left ventricular hypertrophy.
- Risk: Prescription medication management was considered but limited due to the patients recent duodenal ulcer. Consideration of Admission/Observation was made due to potential cardiac issues, requiring monitoring of troponin levels and cardiology
input before a definitive treatment plan.
DIAGNOSIS
- Chest Pain, Unspecified (ICD-10: R07.9)
- Shortness of Breath (ICD-10: R06.02)
- Duodenal Ulcer (ICD-10: K26.9)
- Possible Cardiac Evaluation Needed (ICD-10: Z13.6)
*Pulse Oximetry
Patient hypoxic: no
*Critical Care Note
Total Time (30-74mins, 75-104mins- exclusive of procedures): Not Applicable
ED Attending Note
-
Portions of this chart may have been created with voice recognition software.� Occasional wrong word or��sound alike� substitutions may have occurred due to the inherent limitations of voice recognition software.
Discharge Plan
Departure
Patient Disposition: Admit
Date of Disposition: 12/04/24
Time of Disposition: 04:40
Admit to: Telemetry
Presentation/result/management discussed w/ accepting MD/DO: Hospitalist
Discharge Problem:
Chest pain
Interventions
Interventions:
*Risk Screen - Suicide Last Done: 12/04/24 03:00
*General Assessment Last Done: 12/04/24 03:00
*Neglect/Abuse Screening Last Done: 12/04/24 03:00
*ED- Fall Risk Assessment Last Done: 12/04/24 03:00
*ED COVID-19 Vaccine History Last Done: 12/04/24 03:00
*ED Influenza Vaccine History Last Done: 12/04/24 03:00
*Nursing Disposition Last Done: 12/04/24 09:10
ED- Cardiac Assessment Last Done: 12/04/24 03:08
ED- Pulmonary Assessment Last Done: 12/04/24 03:08
Discharge Date and Time
Discharge Date/Time: 12/04/24 08:45
[2024-12-04] MEDS: NITROSTAT (SUBLINGUAL) 0.4 MG SL (03:06)
[2024-12-04] MEDS: TYLENOL 650 MG PO (03:21)
[2024-12-04 03:45] LABS: Hematocrit 33.7 % (37.0-47.0); Hemoglobin 10.9 g/dL (12.0-16.0); Mean Corp Hgb Conc. 32.3 g/dL (33.0-37.0); Mean Corpuscular Volume 100.6 fL (81.0-99.0); Nucleated Red Blood Cells % 0 %; Platelet Count 220 10^3/uL (130-400); Red Cell Dist. Width 14.8 % (11.5-14.5)
[2024-12-04] MEDS: ZOFRAN 4 MG IV (03:56)
[2024-12-04 04:06] LABS: ALT (SGPT) 18 U/L (0-35); AST (SGOT) 25 U/L (14-36); Albumin 3.8 g/dl (3.5-5.0); Alkaline Phosphatase 113 U/L (38-126); Blood Urea Nitrogen 13 mg/dl (7-17); Calcium 9.4 mg/dl (8.4-10.2); Carbon Dioxide 25 mmol/L (22-30); Chloride 107 mmol/L (98-107); Estimated Creatinine Clearance 50 ml/min; Glucose 81 mg/dl (70-99); Potassium 3.4 mmol/L (3.5-5.1); Sodium 139 mmol/L (135-145); Total Protein 6.3 g/dl (6.3-8.2); eGFR > 60.00
[2024-12-04 04:18] LABS: Troponin I 0.012 ng/ml
[2024-12-04] MEDS: FIORICET 1 TAB PO ×4 (04:34→22:56)
--- NOTE | 2024-12-04 05:39 | HPS.HSE ---
Family Physician
-
Family Physician: NOT KNOW UNKNOWN - PT DOES
Chief Complaint
-
Chest pain
History of Present Illness
This is a 84-year-old female was past medical history significant for gastric ulcer, esophagitis/duodenal stenosis, hypertension, asthma, migraine headaches presenting to the emergency department with acute episode of chest pain.
Patient reported that she noticed some pedal edema tonight before she went to bed. She then woke up from bed with epigastric discomfort. She reports that the pain was radiating up her chest and down into her neck. There was associated shortness
of breath. She denied any diaphoresis. She said she appeared quite allen/pale to her spouse. She denied nausea or vomiting. Patient denied any radiation to her arms. She denied any pain radiating down to her legs. She denies any weakness of her
arms or legs. She denies any dizziness or lightheadedness.
She denies any prior history of CAD. She denies any recent episodes of exertional chest pain orthopnea or PND. She usually sleeps in a inclined position to avoid migraines.
In the emergency department she was hypertensive to 176/76 with a pulse of 65 and she was satting 98% on room air. ECG shows a normal sinus rhythm at a rate of 65 with PACs and no acute ST or T wave changes. Troponin was negative. BNP was 1870
slightly increased from prior. X-ray shows no acute infiltrates but there appears to be a more area increased pulmonary vascular markings and reticulations.
CBC was unremarkable. Electrolytes were normal with a potassium of 3.4.
Medical History
Past Medical History
Past Medical History: Reports CHF, GERD, HTN, Hypercholesterolemia and Other (Duodenal ulcer, migraine)
Past Surgical History: Reports Appendectomy, Cholecystectomy and Other (Hernia repair)
Social History
Tobacco: Non-smoker
Alcohol: None
Family History
Family History: Not pertinent
Allergies / Home Medications
Allergies reflects when Allergies were last updated in [facility].
Home Medications with original date entered in [facility]
Allergy/Medication List:
Allergies
Allergy/AdvReac Type Severity Reaction Status Date / Time
cephalexin monohydrate (From Allergy Anaphylaxis Verified 07/25/24 02:11
Keflex)
clindamycin Allergy Anaphylaxis Verified 07/25/24 02:11
erythromycin base Allergy Anaphylaxis Verified 07/25/24 02:11
(Erythromycin Base)
gentamicin (Gentamicin) Allergy Anaphylaxis Verified 07/25/24 02:11
levofloxacin (From Levaquin) Allergy Anaphylaxis Verified 07/25/24 02:11
Penicillins Allergy Anaphylaxis Verified 07/25/24 02:11
Tetracyclines Allergy Anaphylaxis Verified 07/25/24 02:11
vancomycin Allergy Anaphylaxis Verified 07/25/24 02:11
ciprofloxacin (From Cipro) AdvReac Nausea / Verified 07/25/24 02:11
Vomiting /
Headache
codeine AdvReac Nausea / Verified 07/25/24 02:11
Vomiting /
Headache
iodine AdvReac Vomiting Verified 07/25/24 02:11
morphine AdvReac Shortness Verified 07/25/24 02:11
of Breath
mycin Allergy Anaphylaxis Uncoded 07/25/24 02:11
Home Medications
calcium carbonate (Oyster Shell Calcium 500) 500 mg PO DAILY Supplement 06/23/14
budesonide-formoterol HFA 160 mcg-4.5 mcg/actuation aerosol inhaler 1 puff inhalation R BID Lung/Breathing Issues 10/24/23
cholecalciferol (vitamin D3) 50 mcg (2,000 unit) tablet 50 mcg PO DAILY Supplement 10/24/23
losartan 50 mg tablet 50 mg PO DAILY Blood Pressure 10/24/23
rjxykxmbuo-uwssszceoknwx-ottvncdj 50 mg-300 mg-40 mg capsule (Fioricet) 1 cap PO Q4HPRN PRN migraine 06/30/24
hydrochlorothiazide 50 mg tablet 50 mg PO DAILY Blood Pressure ##0 07/02/24
albuterol sulfate 90 mcg/actuation aerosol inhaler 2 puff inhalation R Q6HPRN PRN sob 07/25/24
carvedilol 12.5 mg tablet (Coreg) 12.5 mg PO DAILY Blood Pressure 07/25/24
pantoprazole 40 mg tablet,delayed release 40 mg PO DAILY Gastrointestinal Issue 07/25/24
Review of Systems
-
Constitutional: Reports No Symptoms
EENT: Reports No Symptoms
Respiratory: Reports Trouble Breathing
Cardiac: Reports Chest Pain
Abdomen/GI: Reports No Symptoms
: Reports No Symptoms
Musculoskeletal: Reports No Symptoms
Skin: Reports No Symptoms
Neurological: Reports No Symptoms
Endocrine: Reports No Symptoms
Hematologic/Lymphatic: Reports No Symptoms
Psych: Reports No Symptoms
Physical Exam
Vital Signs
Vital Signs
Temp Pulse Resp BP Pulse Ox
98.7 F 65 22 176/76 98
12/04/24 03:00 12/04/24 05:30 12/04/24 05:15 12/04/24 05:00 12/04/24 05:30
Physical Exam
General: Well Nourished and No Apparent Distress
HEENT: NormoCephalic and Moist mucous membranes; No Anicteric
Respiratory: Clear and Non Labored Respirations; No Wheezes or Crackles
Cardiac: S1/S2 and Regular Rhythm
Breast: Deferred by me
GI: Soft, Normal Bowel Sounds and Tender
Rectal: Deferred by Provider
Genito-urinary: No Wasserman
Musculoskeletal: Edema, Left Lower Extremity (trace) and Edema, Right Lower Extremity (trace)
Skin: Warm and Dry; No Rash
Neuro: AO x 3 and Nonfocal/grossly intact
Psych: Calm
Laboratory Results
-
12/04/24 03:04
12/04/24 03:04
Laboratory Results
Total Bilirubin 0.4 mg/dl (0.2-1.3) 12/04/24 03:04
AST 25 U/L (14-36) 12/04/24 03:04
ALT 18 U/L (0-35) 12/04/24 03:04
Alkaline Phosphatase 113 U/L (38-126) 12/04/24 03:04
Troponin I 0.012 ng/ml 12/04/24 03:04
Data Reviewed
-
Diagnostic Radiology: Image Personally Visualized and interpreted
Medical Tests (Nuc Med, Echo, EKG etc): Image Personally Visualized and interpreted
Lab Data: Labs Reviewed by me
Old Records: Reviewed
Impression/Plan
-
IMPRESSION:
84-year-old with past medical history of hypertension, esophagitis, duodenal and gastric ulcer presented to the emergency department with chest pain, elevated blood pressure, elevated BNP and new pedal edema. X-ray suggest mild pulmonary edema.
Lungs actually clear to auscultation. However with the elevated blood pressure, elevated BNP and pedal edema there is possibility of uncontrolled hypertension with mild volume overload causing chest discomfort. Initial workup shows her ECG is
nonischemic and troponin was negative. However cannot rule out acute coronary event entirely at this time. Patient has no prior history of CAD and has a history of duodenal ulcer. Aspirin avoided. Symptoms can also be related to an acute
gastritis however we expect the symptoms to still be persistent.
PLAN:
Chest pain -gastritis/esophagitis versus ACS and possibly CHF
- Admit to telemetry observation
-Continue PPI twice daily
-IV famotidine
-Antiemetics x 1
-Will give Lasix 20 mg IV with 40 mg of oral potassium
-Trend troponins
-Holding aspirin for now
-Echocardiogram
-Cardiology consult
DVT prophylaxis�DNR
CODE STATUS�full code
[2024-12-04 05:54] LABS: Lipase 138 U/L (23-300)
[2024-12-04] MEDS: KCL 40 MEQ PO (06:32)
[2024-12-04] MEDS: PEPCID 20 MG IV (06:33)
[2024-12-04] MEDS: LASIX 20 MG IV ×2 (06:33→16:34)
[2024-12-04 07:09] LABS: Troponin I 0.016 ng/ml
[2024-12-04] MEDS: REGLAN 10 MG IV (08:46)
[2024-12-04] MEDS: PROTONIX 40 MG PO ×2 (09:27→20:44)
[2024-12-04] MEDS: COREG 12.5 MG PO (09:27)
[2024-12-04] MEDS: COZAAR 50 MG PO (09:27)
[2024-12-04] MEDS: SYMBICORT 160/4.5 MCG INHALER 1 PUFF INH ×2 (11:34→19:24)
[2024-12-04] MEDS: ORETIC 50 MG PO (11:34)
[2024-12-04 12:26] LABS: Troponin I 0.015 ng/ml
--- NOTE | 2024-12-04 14:19 | CM ---
CM met with patient who lives with her in 1 story home with 1 entry step.
PLOF: Independent, uses cane in the winter
DME: Cane, shower chair
No hx of SNF or VN
PLAN: Home, no needs identified.
[2024-12-04 14:32] LABS: Blood Urea Nitrogen 12 mg/dl (7-17); Calcium 9.0 mg/dl (8.4-10.2); Carbon Dioxide 27 mmol/L (22-30); Chloride 107 mmol/L (98-107); Estimated Creatinine Clearance 49 ml/min; Glucose 97 mg/dl (70-99); Potassium 3.6 mmol/L (3.5-5.1); Sodium 137 mmol/L (135-145); eGFR > 60.00
--- NOTE | 2024-12-04 17:24 | W.PN.HOSP.TC ---
Today's Communication/Plan
-
poss dc tomorrow
Assessment / Plan
Assessment / Plan
84F with gastric ulcer, esophagitis/duodenal stenosis, hypertension, asthma, migraine headaches p/w SOB/chest pain.
Chest pain
ddx includes ACS, Acute CHF, hypertensive emergency, duodenitis/reflux
cp protocol - troponin peaked at 0.016, EKG sinus with PACs, telemetry monitoring, echo no RWMA, normal EF. d/w cardiology no need for consult. No evidence of cardiac etiology of pain
BP control
mild edema and elevated BNP, IV lasix given with improvement
PPI and prn reflux meds
Gastric ulcer
PPI
avoid NSAIDs
HTN
BP elevated
cont coreg, HCTZ, losartan
Migraines
Avoid NSAIDs
tylenol prn
Asthma
inhalers
DVT ppx
lovenox
Anticipated Discharge: Within 24 hours
Subjective/Interval History
-
Date of Service: December 04, 2024
Feels much better, no chest discomfort. at bedside.
Objective Data
-
Labs:
Laboratory Results
12/04/24
13:46
Sodium 137
Potassium 3.6
Chloride 107
Carbon Dioxide 27
BUN 12
Creatinine 0.8
Glucose 97
Calcium 9.0
Vital Signs:
Vital Signs
Temp Pulse Resp BP Pulse Ox
98.8 F 65 17 165/82 98
12/04/24 16:07 12/04/24 16:07 12/04/24 16:07 12/04/24 17:23 12/04/24 16:07
[2024-12-04] MEDS: LOVENOX 40 MG SC (18:12)
[2024-12-05 03:01] VITALS: BP 126/63
[2024-12-05 05:38] LABS: Hematocrit 32.7 % (37.0-47.0); Hemoglobin 10.8 g/dL (12.0-16.0); Mean Corp Hgb Conc. 33.0 g/dL (33.0-37.0); Mean Corpuscular Volume 102.5 fL (81.0-99.0); Nucleated Red Blood Cells % 0 %; Platelet Count 231 10^3/uL (130-400); Red Cell Dist. Width 14.6 % (11.5-14.5)
[2024-12-05 06:04] LABS: Blood Urea Nitrogen 13 mg/dl (7-17); Calcium 8.8 mg/dl (8.4-10.2); Carbon Dioxide 27 mmol/L (22-30); Chloride 104 mmol/L (98-107); Estimated Creatinine Clearance 49 ml/min; Glucose 83 mg/dl (70-99); Potassium 3.2 mmol/L (3.5-5.1); Sodium 138 mmol/L (135-145); eGFR > 60.00
[2024-12-05 06:35] VITALS: BMI 26.1
[2024-12-05 07:00] VITALS: BP 163/75
[2024-12-05] MEDS: SYMBICORT 160/4.5 MCG INHALER 1 PUFF INH (07:31)
[2024-12-05] MEDS: FIORICET 1 TAB PO ×2 (08:30→12:34)
[2024-12-05] MEDS: PROTONIX 40 MG PO (08:30)
[2024-12-05] MEDS: COREG 12.5 MG PO (08:31)
[2024-12-05] MEDS: COZAAR 50 MG PO (08:31)
[2024-12-05] MEDS: ORETIC 50 MG PO (08:31)
[2024-12-05] MEDS: LASIX IV ×2 (08:32→08:38)
--- NOTE | 2024-12-05 08:45 | PTCARENOTE ---
Pt refusing morning dose of IV lasix due to it causing urinary frequency. Pt states she was told that she was in the hospital for observation overnight and does not want to take IV lasix until shes speaks with a doctor. made aware. Lasix not
administered at this time.
[2024-12-05 11:00] VITALS: BP 135/59
[2024-12-05] MEDS: ZOFRAN 4 MG IV (12:00)
--- NOTE | 2024-12-05 13:29 | W.DCSUMMARY ---
Discharge Summary
Discharge Data
Date of Admission: 12/04/24
Date of Discharge: 12/05/24
Total time spent discharging patient (in min): 40
-
Pending Results: No (b12/folate)
Hospital Course
Attending physician on day of discharge:
Maribell Timmons MD
Admission diagnosis:
Chest pain
Discharge diagnosis:
Duodenal ulcer
Secondary diagnoses:
HTN
Migraines
Asthma
Consultations:
none
Procedures:
none
Hospital course:
84F with gastric ulcer, esophagitis/duodenal stenosis, hypertension, asthma, migraine headaches p/w SOB/chest pain. Patient was admitted for chest pain rule out, troponin peaked at 0.016, EKG sinus with PACs, telemetry monitoring unremarkable, echo
no RWMA, normal EF. No evidence of cardiac etiology of pain. Symptoms did not recur. Patient had elevated blood pressure as well as elevated BNP some ankle edema but no crackles on exam, and normal CXR, was treated with IV Lasix with improvement.
Prior to discharge patient experienced an episode of nausea, no vomiting, was treated with IV Zofran x 1 with improvement. Patient opted to discharge home. was at bedside and was in agreement with the plan of care.
Diagnostic findings:
Troponin peak 0.016
B12 226
Folate 6.6
Potassium 3.2, repleted
Hemoglobin 10.8, stable from prior
CXR:IMPRESSION:
Stable elevated right hemidiaphragm.
No acute cardiopulmonary process.
Echo:
SUMMARY
1. Normal left ventricular size and systolic function without regional wall motion abnormalities. Estimated left ventricular ejection fraction of 65% by visual estimation.
2. Normal right ventricular size and systolic function.
3. Mild to moderate aortic regurgitation.
4. Moderate mitral regurgitation.
5. No pericardial effusion.
6. No prior echocardiogram available for comparison.
Physical exam on discharge:
Gen: NAD
HEENT: PERRLA, EOMI, MMM, neck supple
Cards: RRR, no M/G/R
Resp: Lungs CTAB, no W/R/R
GI: soft, NT/ND/NABS
MSK: No edema
Skin: warm and dry, no rash, ulcer or lesions
Heme: No LAD
Psych: Calm
Neuro: AAOx3
Discharge disposition:
Home
Discharge Plan
-
Patient Disposition: Home (Routine Discharge)
Discharge Diagnosis/Procedures: Chest pain, duodenal ulcer
Diet: Regular
Activity: As tolerated
Instructions: Acid reflux and GERD in adults
Referrals:
Seng Gorman, DO [Active, Gastroenterology]
UNKNOWN - PT DOES,NOT KNOW [Family Provider]
Prescriptions:
Continued
calcium carbonate [Oyster Shell Calcium 500] 500 MG tablet
500 mg PO DAILY
losartan 50 mg tablet
50 mg PO DAILY
cholecalciferol (vitamin D3) 50 mcg (2,000 unit) Tablet
50 mcg PO DAILY
budesonide-formoterol 160-4.5 mcg/actuation HFA aerosol inhaler
1 puff INHALATION R BID PRN (Reason: Lung/Breathing Issues)
bxyshnyeem-npztfetgvcbgj-jrgl [Fioricet] 50-300-40 mg Capsule
1 cap PO Q4HPRN PRN (Reason: migraine)
hydrochlorothiazide 50 mg Tablet
50 mg PO DAILY Qty: 0
carvedilol [Coreg] 12.5 mg Tablet
12.5 mg PO DAILY
albuterol sulfate 90 mcg/actuation Hfa Aerosol Inhaler
2 puff INHALATION R Q6HPRN PRN (Reason: sob)
pantoprazole 40 mg tablet,delayed release (DR/EC)
40 mg PO BID Qty: 60 0RF
Discharge Orders:
Discharge Patient (As Directed); Ordered 12/05/24
Ordered By: Maribell Timmons
Discharge Date and Time
Discharge Date/Time: 12/05/24 15:37
Print Language: FRENCH
[2024-12-05 13:38] LABS: Vitamin B12 226 pg/ml (239-931)
[2024-12-05 14:09] LABS: Folate 6.6 ng/ml (2.76-20)
[2024-12-05] MEDS: KCL 40 MEQ PO (14:16)
[2024-12-05 15:00] VITALS: BP 104/51
== END 2024-12-05 15:37 | disposition home or self-care (01) ==
LOC: 3 WEST ACU 06:42
PROVIDERS: ADMITTING PHYSICIAN Internal Medicine; ATTENDING PHYSICIAN Internal Medicine; EMERGENCY PHYSICIAN Student in an Organized Health Care Education/Training Program
DX: K26.9 Duodenal ulcer, unspecified as acute or chronic, without hemorrhage or perforation (principal); I11.0 Hypertensive heart disease with heart failure; I50.9 Heart failure, unspecified; Z79.899 Other long term (current) drug therapy; G43.909 Migraine, unspecified, not intractable, without status migrainosus; J45.909 Unspecified asthma, uncomplicated; Z66 Do not resuscitate
CPT/HCPCS: 71045; 80048; 80053; 82607; 82746; 83690; 83880; 84484; 85025; 93005; 93306; 94640; 94760; 96374; 99285; G0378